=== PATIENT | female | born 1960 | race Caucasian/White ===

== ENCOUNTER 2018-01-27 11:51 | Day surgery (SDC) | END 2018-01-27 15:12 | disposition home or self-care (01) ==

== ENCOUNTER 2018-12-31 06:05 | Inpatient (IN) | payer OTHER ==
[2018-12-30 15:49] VITALS: Ht 160 cm; Wt 132.2 kg
[~2018-12-31] VITALS: Ht 160 cm; Wt 132.2 kg
[2018-12-31] VITALS (57 sets, daily range): BP systolic 80–174; BP diastolic 52–90; PULSE 60–86; RESP 12–30
[~2018-12-31 06:05] MED LIST: ASPIRIN; ATIVAN; BENTYL; COLACE; GABAPENTIN; LEVOTHYROXINE; LOMOTIL; LOSARTAN; MELOXICAM; METFORMIN; METOPROLOL; NAPROXEN; NORCO; OMEPRAZOLE; PAROXETINE; POLYMYXIN/BACITRACIN 1L IRRIG IRR ONE; ZOLPIDEM; [UNRECOGNIZED DRUG - OTHER]; miralax
[2018-12-31] MEDS ORDERED: GABA400C14 ORAL (07:29)
[2018-12-31] MEDS ORDERED: SUCR1TAB56 PO (07:29)
[2018-12-31] MEDS ORDERED: HYOS0.1297 SL (07:29)
[2018-12-31] MEDS ORDERED: TOPI25TA10 ORAL (07:29)
[2018-12-31] MEDS ORDERED: ALBU8.5H8 INH (07:29)
[2018-12-31] MEDS ORDERED: FLUT16SP17 NASAL (07:29)
[2018-12-31] MEDS ORDERED: CHOL100062 PO (07:29)
[2018-12-31] MEDS ORDERED: ONDA4TAB95 ORAL (07:29)
[2018-12-31] MEDS ORDERED: METF-849 ORAL (07:29)
[2018-12-31] MEDS ORDERED: ASPI-817 PO (07:29)
[2018-12-31] MEDS ORDERED: CLO15CR1 TOP (07:29)
[2018-12-31] MEDS ORDERED: METO100T11 ORAL (07:29)
[2018-12-31] MEDS ORDERED: OXYC-431 ORAL (07:29)
[2018-12-31] MEDS ORDERED: SOD CHLORIDE 0.9% 1,000 ML IV SCH (07:30)
--- NOTE | 2018-12-31 07:57 | PREAC ---
Date/Time of Note Date/Time of Note DATE: 12/31/18 TIME: 07:55 Anesthesia Eval and Record Evaluation Time Pre-Procedure Interview DATE: 12/31/18 TIME: 07:55 Age 58 Sex female NPO: 8 hrs Preoperative diagnosis cervical myelopathy Planned procedure C3-C7 posterior cervical decompression and fusion Past Medical History Past Medical History: Includes Cardio: HTN, Dyslipidemia Endo: Diabetes, Hypothyroid GI: Morbid obesity Surgery & Anesthesia Issues No known issue Meds Anticoagulation: No Beta Erna within 24 hr: Yes Reason Beta Erna not given: Bradycarida, Hypotension Reported Medications Cholecalciferol* (Vitamin D3*) 1,000 Unit Tablet, 5000 UNIT PO DAILY, TAB 12/31/18 Oxycodone HCl/Acetaminophen (Oxycodone-Acetaminophen 10-325) 1 Each Tablet, 1 TAB ORAL Q6 PRN for PAIN LEVEL 6-10 12/31/18 Gabapentin* (Gabapentin*) 400 Mg Capsule, 1 CAP ORAL TID 12/31/18 Metoprolol Tartrate (Metoprolol Tartrate) 100 Mg Tablet, 1 TAB ORAL BID 12/31/18 Metformin* (Glucophage*) 500 Mg Tab, 1 TAB ORAL BID 12/31/18 Ondansetron Hcl* (Ondansetron Hcl*) 4 Mg Tablet, 1 TAB ORAL Q6 PRN for VOMITTING 12/31/18 Aspirin* (Aspirin* EC) 81 Mg Tablet.dr, 81 MG PO DAILY, TAB 12/31/18 Albuterol Sulfate* (Proair HFA*) 8.5 Gm Hfa.aer.ad, 2 PUFF INH Q4H PRN for WHEEZING AND SOB, #1 INHALER 12/31/18 Fluticasone Propionate* (Fluticasone Propionate* Nasal) 50 Mcg/Lucernemines - 16 Gm Lucernemines.susp, 1 SPRAY NASAL DAILY 12/31/18 Topiramate* (Topiramate*) 25 Mg Tablet, 1 TAB ORAL DAILY 12/31/18 Clotrimazole (Clotrim) 15 Gm Cr, 1 TOP TID 12/31/18 Hyoscyamine Sulfate* (Hyoscyamine Sulfate*) 0.125 Mg Tab.subl, 0.125 MG SL Q4H PRN for INTESTINAL SPASMS/CRAMPING, TAB 12/31/18 Sucralfate* (Carafate*) 1 Gm Tab, 1 GM PO AC MEALS AND BEDTIME, TAB 12/31/18 Discontinued Reported Medications [Lomotil] No Conflict Check 07/21/18 [Cyclopenzaprine] No Conflict Check 07/21/18 [Naproxen] No Conflict Check 07/21/18 [Metformin] No Conflict Check 07/21/18 [Meloxicam] No Conflict Check 07/21/18 [Gabapentin] No Conflict Check 07/21/18 [Matthews] No Conflict Check 07/21/18 [Bentyl] No Conflict Check 07/21/18 [Levothyroxine] No Conflict Check 07/21/18 [Omeprazole] No Conflict Check 07/21/18 [Zolpidem] No Conflict Check 07/21/18 [Ativan] No Conflict Check 07/21/18 [Paroxetine] No Conflict Check 07/21/18 [Aspirin] No Conflict Check 07/21/18 [Metoprolol] No Conflict Check 07/21/18 [Losartan] No Conflict Check 07/21/18 [Colace] No Conflict Check 07/21/18 [Lomotil] No Conflict Check 07/21/18 [miralax] No Conflict Check 07/21/18 Current Medications Sodium Chloride 1,000 ml @ 0 mls/hr Q0M IV ; Start 12/31/18 at 07:30 Meds reviewed: Yes Allergies Coded Allergies: morphine (Verified Allergy, Unknown, 12/31/18) Allergies Reviewed: Yes Labs/Studies Labs Reviewed: Reviewed by anesthesiologist Result Diagram: 12/31/18 0640 Laboratory Tests 12/31/18 06:40 test: N/A Studies: ECG, CXR Pre-procedure Exam Last vitals Vital Signs Date Temp Pulse Resp B/P (MAP) Pulse Ox O2 O2 Flow FiO2 Time Delivery Rate 12/31/18 97.6 60 18 118/60 97 Room Air 06:59 (79) Airway: Adequate mouth opening, Adequate thyromental dist Mallampati: Mallampati II Teeth: Normal Lung: Normal Heart: Normal ASA Physical Status ASA physical status: 3 Emergency: None Planned Anesthetic General/MAC: ETT (glidescope), A Line Planned Pain Management Parenteral pain med Pre-operative Attestations Prior to commencing anesthesia and surgery, the patient was re-evaluated, there was verification of: *The patient's identity *The results of appropriate recent lab work and preoperative vital signs *The above evaluation not changing prior to induction *Anesthetic plan, risk benefits, alternative and complications discussed with patient/family; questions answered; patient/family understands, accepts and wishes to proceed. DAVIS PERRY MD Dec 31, 2018 07:57
[2018-12-31] MEDS ORDERED: SEVOFLURANE 15 MIN ONE (08:04)
[2018-12-31] MEDS ORDERED: LIDOCAINE 2% (SDV) 5 ML INJ ONE (08:04)
[2018-12-31] MEDS ORDERED: SUCCINYLCHOLINE CHLORIDE 100 MG/5 ML SYG IV ONE (08:04)
[2018-12-31] MEDS ORDERED: MIDAZOLAM 1 MG/ML 2 ML INJ ONE (08:04)
[2018-12-31] MEDS ORDERED: ROCURONIUM 50 MG INJ ONE ×2 (08:04→10:27)
[2018-12-31] MEDS ORDERED: PROPOFOL 20 ML ONE ×3 (08:04→10:27)
--- NOTE | 2018-12-31 08:04 | HPN ---
Date/Time of Note Date/Time of Note DATE: 12/31/18 TIME: 08:02 Interval H&P Admission Note Pt. seen H&P reviewed: No system changes Neurosurgery Preop Note Patient seen and examined Extensive d/w patient and about all available options including surgery vs no surgery. Overall risk/complications (3-5%) and benefits thoroughly discussed. All questions answered and no guarantees given . Dispo: ICU overnight, sbp 90-140, Dr. Jimenez's group for post op medical management OLIVE FARRELL MD Dec 31, 2018 08:04
[2018-12-31] MEDS ORDERED: THROMBIN 5000 UNIT (RECOTHROM) VIAL ONE (09:20)
[2018-12-31] MEDS ORDERED: ROPIVACAINE 0.5 % 30 ML VIAL ONE (09:20)
[2018-12-31] MEDS ORDERED: POLYMYXIN/BACITRACIN 1L IRRIG ONE (09:20)
[2018-12-31] MEDS ORDERED: GELATIN SIZE 100 SPONGE ONE (09:20)
[2018-12-31] MEDS ORDERED: ONDANSETRON 4 MG INJ ONE (10:03)
[2018-12-31] MEDS ORDERED: DEXAMETHASONE 4 MG/ML 5 ML INJ ONE (10:03)
[2018-12-31] MEDS ORDERED: FAMOTIDINE 20 MG INJ ONE (10:03)
[2018-12-31] MEDS ORDERED: CEFAZOLIN 1 GM INJ ONE (10:15)
[2018-12-31] MEDS ORDERED: POLYMYXIN/BACITRACIN 1L IRRIG IRR ONE (10:20)
[2018-12-31] MEDS ORDERED: DIPHENHYDRAMINE 50 MG INJ IV PRN ×2 (11:00→13:30)
[2018-12-31] MEDS ORDERED: ONDANSETRON 4 MG INJ IV PRN ×2 (11:00→13:30)
[2018-12-31] MEDS ORDERED: HYDROmorphONE 0.5 MG/0.5 ML SYG IV PRN ×3 (11:00)
[2018-12-31] MEDS ORDERED: MEPERIDINE 25 MG INJ IV PRN ×2 (11:00→13:30)
[2018-12-31] MEDS ORDERED: FENTAnyl 50 MCG/ML VIAL IV PRN ×2 (11:00→13:30)
[2018-12-31] MEDS ORDERED: hydrALAzine 20 MG INJ IV PRN ×2 (11:00→13:30)
[2018-12-31] MEDS ORDERED: EPHEDrine 25 MG/5 ML SYG IV PRN (11:00)
[2018-12-31] MEDS ORDERED: NEOSTIGMINE 3 MG/3 ML SYRINGE ONE (12:18)
[2018-12-31] MEDS ORDERED: GLYCOPYRROLATE 0.4 MG INJ ONE (12:18)
[2018-12-31] MEDS ORDERED: HYDROmorphONE 2 MG/ML SYG ONE (12:24)
--- NOTE | 2018-12-31 12:25 | OPPN ---
Date/Time of Note Date/Time of Note DATE: 12/31/18 TIME: 12:24 Operative Report Preoperative Diagnosis Cervical Myelopathy Cervical Spine Stenosis Postoperative Diagnosis Same Operation/Procedure Performed PCDF C3-7 Surgeon see signature line assistant therapy aide SHA Clark, ACNP-BC Anesthesia: general Estimated blood loss: 100 - 150 ml's Transfusion Required none Specimen Bones & Ligaments Grafts/Implants none Complications none OLIVE FARRELL MD Dec 31, 2018 12:25
[2018-12-31] MEDS ORDERED: AL HYDROX/MG HYDROX/SIMETH 30 ML CUP PO PRN (12:30)
[2018-12-31] MEDS ORDERED: NACL 0.9% 3 ML SYG IV SCH (12:30)
[2018-12-31] MEDS ORDERED: NALOXONE (0.4 MG/ML) INJ IV PRN (12:30)
[2018-12-31] MEDS ORDERED: ACETAMINOPHEN 325 MG TAB PO PRN (12:30)
[2018-12-31] MEDS ORDERED: SUGAMMADEX SODIUM 200 MG/2 ML VIAL IV ONE (12:51)
--- NOTE | 2018-12-31 13:05 | PAC ---
Date/Time of Note Date/Time of Note DATE: 12/31/18 TIME: 13:04 Post-Anesthesia Notes Post-Anesthesia Note Last documented vital signs Vital Signs Date Temp Pulse Resp B/P (MAP) Pulse Ox O2 O2 Flow FiO2 Time Delivery Rate 12/31/18 98.0 13:02 12/31/18 60 18 118/60 97 Room Air 06:59 (79) Activity: WNL Respiratory function: WNL Cardiovascular function: WNL Mental status: Baseline Pain reasonably controlled: Yes Hydration appropriate: Yes Nausea/Vomiting absent: Yes Comments BP: 138/62 HR: 70 RR: 15 T: 98 SaO2: 99% DAVIS PERRY MD Dec 31, 2018 13:05
[2018-12-31] MEDS ORDERED: PROCHLORPERAZINE 10 MG INJ IV PRN (13:30)
[2018-12-31] MEDS ORDERED: HYDROmorphONE 1 MG/5 ML IV SYRINGE IV PRN ×3 (13:30)
[2018-12-31] MEDS ORDERED: ALBUTEROL 0.083% (NEB) 2.5 MG/3 ML AMP HHN PRN (13:30)
[2018-12-31] MEDS: NS + KCL 20 MEQ 1,000 ML IV SCH ×2 (14:52→21:31)
[2018-12-31] MEDS: CEFAZOLIN 2 GM/50 ML (PMX) 50 ML IVPB SCH ×2 (14:52→21:31)
[2018-12-31] MEDS: HYDROmorphONE 1 MG/ML SYG IV PRN ×3 (16:09→23:27)
[2018-12-31] MEDS ORDERED: HYOSCYAMINE 0.125 MG SUBL TAB SL PRN (17:00)
[2018-12-31] MEDS ORDERED: GLUCOSE GEL 15 GRAM TUBE BUCCAL PRN (17:30)
[2018-12-31] MEDS ORDERED: DEXTROSE 50% 50 ML SYRINGE IV PRN ×2 (17:30)
[2018-12-31] MEDS ORDERED: GLUCAGON 1 MG INJ IM PRN (17:30)
[2018-12-31] MEDS ORDERED: GLUCOSE GEL 15 GRAM TUBE PO PRN ×2 (17:30)
[2018-12-31] MEDS: metFORMIN 500 MG TAB PO SCH (17:35)
[2018-12-31] MEDS: INSULIN ASPART [NOVOLOG] 3 ML PEN SC SCH ×2 (17:35→20:44)
[2018-12-31] MEDS: TOPIRAMATE 25 MG TAB PO SCH (18:00)
[2018-12-31] MEDS: GABAPENTIN 100 MG CAP PO SCH (18:00)
[2018-12-31] MEDS: ALBUTEROL/IPRATROPIUM (NEB) 3 ML AMP HHN SCH (19:43)
[2018-12-31] MEDS: METOPROLOL 100 MG TAB PO SCH (20:44)
[2018-12-31] MEDS: SUCRALFATE 1 GM TAB PO SCH (20:44)
--- NOTE | 2018-12-31 22:51 | HP ---
DATE OF ADMISSION: 12/31/2018 CHIEF COMPLAINT AND HISTORY OF PRESENT ILLNESS: The patient is a 58-year-old morbidly obese female w ith history of hypertension, diabetes, hypothyroidism, was seen by Dr. Haley as an outpatient for nec k pain and radiculopathy. The patient failed conservative treatment and was complaining of difficult y in ambulating, including need for a walker to assist in ambulation and also has some urinary incont inence for approximately more than 1 year. The patient also had difficulty with her balance and was frequently dropping objects. The patient was diagnosed with cervical radiculopathy and myelopathy an d was brought in to hospital today and underwent a posterior cervical laminotomy and foraminotomy, ce rvical 3 to cervical 7 posterior cervical decompression. The patient's preoperative diagnoses also i ncluded cervical spinal stenosis leading to cervical myelopathy. The patient has been admitted in [facility] for further care. The patient did have an episode of wheezing perioperatively and was given breath ing treatment. The patient remains slightly sleepy; however, easily arousable and follows commands, moves all extremities. No reported chest pain, currently breathing comfortably on supplemental oxyge n. No reported vomiting. No reported abdominal pain. REVIEW OF SYSTEMS: Rather limited because of sedation. History of fibromyalgia and irritable bowel syndrome. PAST MEDICAL HISTORY: As stated above. ALLERGIES 1. MORPHINE. 2. PAIN. PAST SURGICAL HISTORY: The patient is status post cholecystectomy, oophorectomy, right carpal tunnel release and anterior cervical spine surgery, details not available. FAMILY HISTORY: Noncontributory. PHYSICAL EXAMINATION: GENERAL: The patient is sleepy but arousable. VITAL SIGNS: Temperature 98, pulse 74, respiration 22, blood pressure 142/58, O2 saturation 97% on 8 liters mask. The patient is being weaned off. HEENT: No eye discharge or redness. Conjunctivae are normal. Nose and ears normal. NECK: The patient is status post surgery. CHEST: Diminished air entry at bases. CARDIOVASCULAR: S1, S2 normal, no murmur. ABDOMEN: Soft, nontender. EXTREMITIES: No edema. Pedal pulse palpable. SKIN: Without acute rash. NEUROLOGIC: The patient is sleepy but arousable and follows simple commands. IMPRESSION: 1. Cervical stenosis with cervical myelopathy, status post surgery, as described above. 3. Hypertension. 4. Diabetes. 5. Hypothyroidism. 6. Irritable bowel syndrome. 7. Fibromyalgia. 8. Obesity. 9. Probable history of asthma. Patient prior to admission was on metered dose inhalers. PLAN: The patient has been admitted in ICU and will be put on diabetic diet and will resume metformi n and sliding-scale insulin. We will continue metformin for diabetes in addition to sliding scale. Continue metoprolol as before for her hypertension. We will also add a breathing treatment. The pat ient remains at risk for atelectasis. Labs done this morning revealed potassium of 3.4. We will rep eat another BMP and replace potassium if needed. Her renal function this morning was normal. We neyda l do followup CBC and BMP. CBC prior to surgery revealed white count of 5.6, hemoglobin 13.6, platel et 319 ____ unremarkable. Plan of care discussed with the patient's . We will continue to fo llow her from a medical standpoint. Plan of care discussed with the patient's nurse in ICU. Dictated By: ALDAIR PIMENTEL MD AB/NTS Conf#: [id number] DID#: [id number] CC: OLIVE HALEY MD;*EndCC*
[2019-01-01] VITALS (44 sets, daily range): BP systolic 37–154; BP diastolic 30–101; PULSE 51–78; RESP 8–30
[2019-01-01] MEDS: ALBUTEROL/IPRATROPIUM (NEB) 3 ML AMP HHN SCH ×4 (02:10→20:37)
[2019-01-01] MEDS: HYDROmorphONE 1 MG/ML SYG IV PRN ×4 (03:31→18:33)
[2019-01-01] MEDS: CEFAZOLIN 2 GM/50 ML (PMX) 50 ML IVPB SCH ×3 (05:16→22:07)
[2019-01-01] MEDS: INSULIN ASPART [NOVOLOG] 3 ML PEN SC SCH ×4 (07:35→20:44)
[2019-01-01] MEDS: metFORMIN 500 MG TAB PO SCH ×2 (08:06→17:52)
[2019-01-01] MEDS: SUCRALFATE 1 GM TAB PO SCH ×5 (08:06→20:26)
[2019-01-01] MEDS: CHOLECALCIFEROL 1,000 UNIT TAB PO SCH (09:52)
[2019-01-01] MEDS: TOPIRAMATE 25 MG TAB PO SCH (09:53)
[2019-01-01] MEDS: METOPROLOL 100 MG TAB PO SCH ×2 (09:53→20:27)
[2019-01-01] MEDS: GABAPENTIN 100 MG CAP PO SCH ×3 (09:53→20:27)
[2019-01-01] MEDS: NS + KCL 20 MEQ 1,000 ML IV SCH ×2 (09:57→20:28)
[2019-01-01] MEDS: HYDROCODONE/APAP (5/325) TAB PO PRN ×2 (10:11→23:05)
--- NOTE | 2019-01-01 11:07 | PN ---
Date/Time of Note Date/Time of Note DATE: 01/01/19 TIME: 11:07 Assessment/Plan VTE [place]phylaxis [place] [facility] [place] risk: 13 SCD applied [place] [facility] [place] Yes SCD contraindicated: other Pharmacological prophylaxis: other Pharm contraindication: other Lines/Catheters [facility]from [facility] Saline Lock Urinary Cath still in place: Yes Reason Cath still needed: urinary retention Assessment/Plan Assessment/Plan 1. Cervical stenosis with cervical myelopathy, status post surgery, as described above. - ICU monitoring - per neurosurgery 3. Hypertension- stable - Continue metoprolol 4. Diabetes - glycemic control - diabetic diet 5. Hypothyroidism. 6. Irritable bowel syndrome. 7. Fibromyalgia. 8. Obesity. - weight management 9. Probable history of asthma- Patient prior to admission was on metered dose inhalers. Total critical care time spent 40 mins. Patient seen in collaboration with Dr Jimenez. STAFF Result Diagram: 01/01/19 0400 01/01/19 0400 Results 24hrs Laboratory Tests Test 12/31/18 12:57 12/31/18 17:11 12/31/18 18:00 12/31/18 19:54 Bedside Glucose 174 155 133 Sodium Level 138 Potassium Level 4.2 Chloride Level 107 Carbon Dioxide Level 20 L Anion Gap 11 Blood Urea Nitrogen 14 Creatinine 0.58 Est Glomerular > 60 Filtrat Rate mL/min Glucose Level 187 Calcium Level 8.7 Test 01/01/19 04:00 01/01/19 08:05 Hemoglobin 13.4 Hematocrit 40.0 Sodium Level 139 Potassium Level 3.8 Chloride Level 106 Carbon Dioxide Level 22 Anion Gap 11 Blood Urea Nitrogen 11 Creatinine 0.55 Est Glomerular > 60 Filtrat Rate mL/min Glucose Level 111 # Calcium Level 8.9 Bedside Glucose 105 Subjective 24 Hr Interval Summary Free Text/Dictation c/ o neck pain denies any BUE/BLE weakness/numbness no events overnight Constitutional: requiring O2 Eyes: no complaints ENT: no complaints Respiratory: no complaints Cardiovascular: no complaints Gastrointestinal: no complaints Genitourinary: no complaints Musculoskeletal: neck pain Skin: no complaints Neurologic: no complaints Exam/Review of Systems Exam Vitals Vital Signs Date Temp Pulse Resp B/P (MAP) Pulse Ox O2 O2 Flow FiO2 Time Delivery Rate 01/01/19 78 17 37/30 (32) 97 10:01 01/01/19 Nasal 10:00 Cannula 01/01/19 2.0 08:39 01/01/19 97.9 08:00 12/31/18 50 16:15 Intake and Output 12/31/18 12/31/18 01/01/19 1515:00 23:00 07:00 IntakeIntake Total 2000 ml 800 ml 820 ml OutputOutput Total 350 ml 1665 ml 1110 ml BalanceBalance 1650 ml -865 ml -290 ml Constitutional: alert, well developed, obese Psych: nl mood/affect Head: normocephalic Eyes: nl lids, nl sclera, PERRL ENMT: nl external ears & nose Neck: non-tender Respiratory: clear to auscultation Cardiovascular: nl pulses, other (s1s2) Gastrointestinal: soft, non-tender Musculoskeletal: nl extremities to inspection Extremities: normal pulses Neurological: nl speech, other (alert/responsive) Skin: nl turgor Lymph: nontender Results Results 24hrs Laboratory Tests Test 12/31/18 12:57 12/31/18 17:11 12/31/18 18:00 12/31/18 19:54 Bedside Glucose 174 155 133 Sodium Level 138 Potassium Level 4.2 Chloride Level 107 Carbon Dioxide Level 20 L Anion Gap 11 Blood Urea Nitrogen 14 Creatinine 0.58 Est Glomerular > 60 Filtrat Rate mL/min Glucose Level 187 Calcium Level 8.7 Test 01/01/19 04:00 01/01/19 08:05 Hemoglobin 13.4 Hematocrit 40.0 Sodium Level 139 Potassium Level 3.8 Chloride Level 106 Carbon Dioxide Level 22 Anion Gap 11 Blood Urea Nitrogen 11 Creatinine 0.55 Est Glomerular > 60 Filtrat Rate mL/min Glucose Level 111 # Calcium Level 8.9 Bedside Glucose 105 Medications Medication Current Medications Sodium Chloride 1,000 ml @ 0 mls/hr Q0M IV ; Start 12/31/18 at 07:30 Acetaminophen/ Hydrocodone Bitart ([place] (5/325)) 1 tab Q4H PRN PO .PAIN 1-5 Last administered on 01/01/19at 10:11; Admin Dose 1 TAB; Start 12/31/18 at 12:30 Al Hydrox/Mg Hydrox/Simethicone (Mag-Al Plus) 15 ml Q4H PRN PO .CONSTIPATION; Start 12/31/18 at 12:30 Acetaminophen (Tylenol Tab) 650 mg Q4H PRN PO TEMP GREATER THAN 101F OR VASQUEZ; Start 12/31/18 at 12:30 IV Flush (NS 3 ml) 3 ml PER PROTOCOL IV ; Start 12/31/18 at 12:30 Naloxone HCl (Narcan) 0.2 mg Q2M PRN IV RR 8 BREATHS/MIN OR LESS; Start 12/31/18 at 12:30 Potassium Chloride/Sodium Chloride 1,000 ml @ 100 mls/hr Q10H IV Last administered on 01/01/19 09:57; Admin Dose 100 MLS/HR; Start 12/31/18 at 12:30 Hydromorphone HCl (Dilaudid) 1 mg Q3H PRN IV SEVERE PAIN LEVEL 7-10 Last administered on 01/01/19 07:49; Admin Dose 1 MG; Start 12/31/18 at 12:30 Cefazolin Sodium/ Dextrose 50 ml @ 100 mls/hr Q8 IVPB Last administered on 01/01/19 05:16; Admin Dose 100 MLS/HR; Start 12/31/18 at 14:00; Stop 01/02/19 at 14:00 Albuterol/ Ipratropium (Duoneb) 3 ml Q6H RESP THERAPY HHN Last administered on 01/01/19 08:36; Admin Dose 3 ML; Start 12/31/18 at 20:00; Stop 01/03/19 at 19:59 Cholecalciferol (Vitamin D) 5,000 unit DAILY PO Last administered on 01/01/19 09:52; Admin Dose 5,000 UNIT; Start 01/01/19 at 09:00 Gabapentin (Neurontin) 200 mg TID PO Last administered on 01/01/19 09:53; Admin Dose 200 MG; Start 12/31/18 at 18:00 Hyoscyamine (Levsin (Sl)) 0.125 mg Q4H PRN SL INTESTINAL SPASMS/CRAMPING; Start 12/31/18 at 17:00 Metformin HCl (Glucophage) 500 mg BID WITH MEALS PO Last administered on 01/01/19 08:06; Admin Dose 500 MG; Start 12/31/18 at 17:35 Metoprolol Tartrate (Lopressor) 100 mg BID PO Last administered on 01/01/19 09:53; Admin Dose 100 MG; Start 12/31/18 at 21:00 Sucralfate (Carafate) 1 gm AC MEALS AND BEDTIME PO Last administered on 01/01/19at 08:06; Admin Dose 1 GM; Start 12/31/18 at 21:00 Topiramate (Topamax) 25 mg DAILY PO Last administered on 01/01/19at 09:53; Admin Dose 25 MG; Start 12/31/18 at 18:00 Insulin Aspart (Novolog Insulin Pen) NOVOLOG *MODERATE* ALGORITHM WITH MEALS BEDTIME SC ; Start 12/31/18 at 17:35 Miscellaneous Information 1 ea NOTE XX ; Start 12/31/18 at 17:30 Glucose (Glutose) 15 gm Q15M PRN PO DECREASED GLUCOSE; Start 12/31/18 at 17:30 Glucose (Glutose) 22.5 gm Q15M PRN PO DECREASED GLUCOSE; Start 12/31/18 at 17:30 Dextrose (D50w Syringe) 25 ml Q15M PRN IV DECREASED GLUCOSE; Start 12/31/18 at 17:30 Dextrose (D50w Syringe) 50 ml Q15M PRN IV DECREASED GLUCOSE; Start 12/31/18 at 17:30 Glucagon (Glucagen) 1 mg Q15M PRN IM DECREASED GLUCOSE; Start 12/31/18 at 17:30 Glucose (Glutose) 15 gm Q15M PRN BUCCAL DECREASED GLUCOSE; Start 12/31/18 at 1 7:30 NELDA LOWE Jan 01, 2019 11:07
[2019-01-02] VITALS (7 sets, daily range): BP systolic 120–155; BP diastolic 57–77; PULSE 53–62; RESP 18–20
[2019-01-02] MEDS: ALBUTEROL/IPRATROPIUM (NEB) 3 ML AMP HHN SCH ×4 (01:30→20:06)
[2019-01-02] MEDS: CEFAZOLIN 2 GM/50 ML (PMX) 50 ML IVPB SCH ×2 (06:03→14:18)
[2019-01-02] MEDS: NS + KCL 20 MEQ 1,000 ML IV SCH ×3 (06:04→18:38)
[2019-01-02] MEDS: SUCRALFATE 1 GM TAB PO SCH ×4 (07:20→20:31)
[2019-01-02] MEDS: metFORMIN 500 MG TAB PO SCH ×2 (07:37→17:22)
[2019-01-02] MEDS: INSULIN ASPART [NOVOLOG] 3 ML PEN SC SCH ×4 (07:41→20:32)
[2019-01-02] MEDS: HYDROmorphONE 1 MG/ML SYG IV PRN ×3 (07:46→18:38)
[2019-01-02] MEDS: TOPIRAMATE 25 MG TAB PO SCH (08:42)
[2019-01-02] MEDS: METOPROLOL 100 MG TAB PO SCH ×2 (08:42→20:31)
[2019-01-02] MEDS: CHOLECALCIFEROL 1,000 UNIT TAB PO SCH (08:43)
[2019-01-02] MEDS: GABAPENTIN 100 MG CAP PO SCH ×3 (08:43→20:32)
--- NOTE | 2019-01-02 11:20 | PN ---
Date/Time of Note Date/Time of Note DATE: 01/02/19 TIME: 11:17 Assessment/Plan VTE [place]axis [place] [facility] [place]: 11 [place] [facility] [place] Yes SCD contraindicated: other Pharmacological prophylaxis: other Pharm contraindication: other Lines/Catheters [facility] C[facility] Type [facility] Saline Lock Urinary Cath still in place: Yes Reason Cath still needed: urinary retention Assessment/Plan Assessment/Plan 1. Cervical stenosis with cervical myelopathy, status post surgery, as described above. - per neurosurgery 3. Hypertension- stable - Continue metoprolol 4. Diabetes - glycemic control - diabetic diet 5. Hypothyroidism. 6. Irritable bowel syndrome. 7. Fibromyalgia. 8. Obesity. - weight management 9. Probable history of asthma- Patient prior to admission was on metered dose inhalers. Total critical care time spent 40 mins. Patient seen in collaboration with Dr Jimenez. STAFF Result Diagram: 01/01/19 0400 01/01/19 0400 Results 24hrs Laboratory Tests Test 01/01/19 12:01 01/01/19 17:55 01/01/19 20:29 01/02/19 07:34 Bedside Glucose 129 145 128 118 Subjective 24 Hr Interval Summary Free Text/Dictation c/o neck pain; up in chair; gets PT cervical collar noted no events reported last night Eyes: no complaints ENT: no complaints Respiratory: no complaints Cardiovascular: no complaints Gastrointestinal: no complaints Genitourinary: no complaints Musculoskeletal: neck pain Skin: no complaints Neurologic: no complaints Endocrine: no complaints Lymphatic: no complaints Psychological: nl mood/affect Immunologic: no complaints Exam/Review of Systems Exam Vitals Vital Signs Date Temp Pulse Resp B/P (MAP) Pulse Ox O2 O2 Flow FiO2 Time Delivery Rate 01/02/19 68 18 96 Nasal 2.0 09:34 Cannula 01/02/19 98.8 138/67 07:41 (90) 01/02/19 28 01:40 Intake and Output 01/01/19 01/01/19 01/02/19 1414:59 22:59 06:59 IntakeIntake Total 1200 ml 740 ml 150 ml OutputOutput Total 940 ml 240 ml 4200 ml BalanceBalance 260 ml 500 ml -4050 ml Results Results 24hrs Laboratory Tests Test 01/01/19 12:01 01/01/19 17:55 01/01/19 20:29 01/02/19 07:34 Bedside Glucose 129 145 128 118 Medications Medication Current Medications Acetaminophen/ Hydrocodone Bitart ([place] (5/325)) 1 tab Q4H PRN PO .PAIN 1-5 Last administered on 01/01/19at 23:05; Admin Dose 1 TAB; Start 12/31/18 at 12:30 Al Hydrox/Mg Hydrox/Simethicone (Mag-Al Plus) 15 ml Q4H PRN PO .CONSTIPATION; Start 12/31/18 at 12:30 Acetaminophen (Tylenol Tab) 650 mg Q4H PRN PO TEMP GREATER THAN 101F OR VASQUEZ; Start 12/31/18 at 12:30 IV Flush (NS 3 ml) 3 ml PER PROTOCOL IV ; Start 12/31/18 at 12:30 Naloxone HCl (Narcan) 0.2 mg Q2M PRN IV RR 8 BREATHS/MIN OR LESS; Start 12/31/18 at 12:30 Potassium Chloride/Sodium Chloride 1,000 ml @ 100 mls/hr Q10H IV Last administered on 01/02/19 06:04; Admin Dose 100 MLS/HR; Start 12/31/18 at 12:30 Hydromorphone HCl (Dilaudid) 1 mg Q3H PRN IV SEVERE PAIN LEVEL 7-10 Last admini stered on 01/02/19 07:46; Admin Dose 1 MG; Start 12/31/18 at 12:30 Cefazolin Sodium/ Dextrose 50 ml @ 100 mls/hr Q8 IVPB Last administered on 01/02/19 06:03; Admin Dose 100 MLS/HR; Start 12/31/18 at 14:00; Stop 01/02/19 at 14:00 Albuterol/ Ipratropium (Duoneb) 3 ml Q6H RESP THERAPY HHN Last administered on 01/02/19 09:33; Admin Dose 3 ML; Start 12/31/18 at 20:00; Stop 01/03/19 at 19:59 Cholecalciferol (Vitamin D) 5,000 unit DAILY PO Last administered on 01/02/19 08:43; Admin Dose 5,000 UNIT; Start 01/01/19 at 09:00 Gabapentin (Neurontin) 200 mg TID PO Last administered on 7/21/19at 08:43; Admin Dose 200 MG; Start 12/31/18 at 18:00 Hyoscyamine (Levsin (Sl)) 0.125 mg Q4H PRN SL INTESTINAL SPASMS/CRAMPING; Start 12/31/18 at 17:00 Metformin HCl (Glucophage) 500 mg BID WITH MEALS PO Last administered on 01/02/19at 07:37; Admin Dose 500 MG; Start 12/31/18 at 17:35 Metoprolol Tartrate (Lopressor) 100 mg BID PO Last administered on 01/02/19at 08:42; Admin Dose 100 MG; Start 12/31/18 at 21:00 Sucralfate (Carafate) 1 gm AC MEALS AND BEDTIME PO Last administered on 01/02/19 07:20; Admin Dose 1 GM; Start 12/31/18 at 21:00 Topiramate (Topamax) 25 mg DAILY PO Last administered on 01/02/19at 08:42; Admin Dose 25 MG; Start 12/31/18 at 18:00 Insulin Aspart (Novolog Insulin Pen) NOVOLOG *MODERATE* ALGORITHM WITH MEALS BEDTIME SC ; Start 12/31/18 at 17:35 Miscellaneous Information 1 ea NOTE XX ; Start 12/31/18 at 17:30 Glucose (Glutose) 15 gm Q15M PRN PO DECREASED GLUCOSE; Start 12/31/18 at 17:30 Glucose (Glutose) 22.5 gm Q15M PRN PO DECREASED GLUCOSE; Start 12/31/18 at 17:3 0 Dextrose (D50w Syringe) 25 ml Q15M PRN IV DECREASED GLUCOSE; Start 12/31/18 at 17:30 Dextrose (D50w Syringe) 50 ml Q15M PRN IV DECREASED GLUCOSE; Start 12/31/18 at 17:30 Glucagon (Glucagen) 1 mg Q15M PRN IM DECREASED GLUCOSE; Start 12/31/18 at 17:30 Glucose (Glutose) 15 gm Q15M PRN BUCCAL DECREASED GLUCOSE; Start 12/31/18 at 17:30 NELDA LOWE Jan 02, 2019 11:20
[2019-01-02] MEDS: HYDROCODONE/APAP (5/325) TAB PO PRN (22:56)
[2019-01-03] MEDS: HYDROmorphONE 1 MG/ML SYG IV PRN ×4 (01:49→19:21)
[2019-01-03] MEDS: ALBUTEROL/IPRATROPIUM (NEB) 3 ML AMP HHN SCH ×3 (02:00→14:00)
[2019-01-03 03:55] VITALS: BP 127/64; PULSE 55; RESP 20
[2019-01-03] MEDS: SUCRALFATE 1 GM TAB PO SCH ×4 (06:25→23:03)
[2019-01-03] MEDS: NS + KCL 20 MEQ 1,000 ML IV SCH (06:27)
[2019-01-03 07:20] VITALS: BP 136/61; PULSE 58; RESP 18
[2019-01-03] MEDS: metFORMIN 500 MG TAB PO SCH ×2 (07:38→17:06)
[2019-01-03] MEDS: INSULIN ASPART [NOVOLOG] 3 ML PEN SC SCH ×4 (07:43→23:06)
[2019-01-03 08:03] VITALS: PULSE 61
[2019-01-03] MEDS: CHOLECALCIFEROL 1,000 UNIT TAB PO SCH (08:04)
[2019-01-03] MEDS: TOPIRAMATE 25 MG TAB PO SCH (08:04)
[2019-01-03] MEDS: GABAPENTIN 100 MG CAP PO SCH ×3 (08:04→23:03)
[2019-01-03] MEDS: METOPROLOL 100 MG TAB PO SCH ×2 (08:05→23:04)
[2019-01-03 11:06] VITALS: BP 130/63; PULSE 54; RESP 19
--- NOTE | 2019-01-03 14:07 | PN ---
Date/Time of Note Date/Time of Note DATE: 01/03/19 TIME: 14:04 Assessment/Plan VTE Prophylaxis Risk score (from Nsg)>0 risk: 11 SCD applied (from Ns): Yes SCD contraindicated: low risk/ambulating Pharmacological prophylaxis: NA/contraindicated Pharm contraindication: low risk/ambulating Lines/Catheters IV Catheter Type (from Nrsg): Saline Lock [place] line still needed: No Urinary Cath still in place: No Assessment/Plan Assessment/Plan Impression s/p PCDF C3-7 doing well surgical site: CDI Plan cont supportive care pt/ot collar x 6 weeks when oob IS x 10 dc laurie drain rehab eval, okay to proceed dc home with HH or Rehab from NS point of view family would prefer rehab placement Result Diagram: 01/01/19 0400 01/01/19 0400 Results 24hrs Laboratory Tests Test 01/02/19 17:21 01/02/19 20:28 01/03/19 07:31 01/03/19 12:07 Bedside Glucose 108 121 149 125 Subjective 24 Hr Interval Summary Free Text/Dictation Neurosurgery Update S: s/p PCDF C3-7 increasing strength bilat UE/LE surgical site:CDI LAURIE drain with scant output Exam/Review of Systems Exam Vitals Vital Signs Date Temp Pulse Resp B/P (MAP) Pulse Ox O2 O2 Flow FiO2 Time Delivery Rate 01/03/19 98.7 54 19 130/63 94 11:06 (85) 01/03/19 Nasal 2.0 08:00 Cannula 01/02/19 28 01:40 Intake and Output 01/02/19 01/02/19 01/03/19 1515:00 23:00 07:00 IntakeIntake Total 1150 ml 1400 ml 225 ml OutputOutput Total 2250 ml 2800 ml BalanceBalance 1150 ml -850 ml -2575 ml Neurological: other (MS: AAOX4 CN: PERRL M: FC x 4 , no focal def (increasing strength) Surgical site:CDI ) Results Results 24hrs Laboratory Tests Test 01/02/19 17:21 01/02/19 20:28 01/03/19 07:31 01/03/19 12:07 Bedside Glucose 108 121 149 125 Medications Medication Current Medications Acetaminophen/ Hydrocodone Bitart ([place] (5/325)) 1 tab Q4H PRN PO .PAIN 1-5 Last administered on 01/02/19 22:56; Admin Dose 1 TAB; Start 12/31/18 at 12:30 Al Hydrox/Mg Hydrox/Simethicone (Mag-Al Plus) 15 ml Q4H PRN PO .CONSTIPATION; Start 12/31/18 at 12:30 Acetaminophen (Tylenol Tab) 650 mg Q4H PRN PO TEMP GREATER THAN 101F OR VASQUEZ; Start 12/31/18 at 12:30 IV Flush (NS 3 ml) 3 ml PER PROTOCOL IV ; Start 12/31/18 at 12:30 Naloxone HCl (Narcan) 0.2 mg Q2M PRN IV RR 8 BREATHS/MIN OR LESS; Start 12/31/18 at 12:30 Hydromorphone HCl (Dilaudid) 1 mg Q3H PRN IV SEVERE PAIN LEVEL 7-10 Last administered on 01/03/19 09:16; Admin Dose 1 MG; Start 12/31/18 at 12:30 Albuterol/ Ipratropium (Duoneb) 3 ml Q6H RESP THERAPY HHN Last administered on 01/03/19 07:49; Admin Dose 3 ML; Start 12/31/18 at 20:00; Stop 01/03/19 at 19:59 Cholecalciferol (Vitamin D) 5,000 unit DAILY PO Last administered on 01/03/19 08:04; Admin Dose 5,000 UNIT; Start 01/01/19 at 09:00 Gabapentin (Neurontin) 200 mg TID PO Last administered on 01/03/19 12:07; Admin Dose 200 MG; Start 12/31/18 at 18:00 Hyoscyamine (Levsin (Sl)) 0.125 mg Q4H PRN SL INTESTINAL SPASMS/CRAMPING; Start 12/31/18 at 17:00 Metformin HCl (Glucophage) 500 mg BID WITH MEALS PO Last administered on 01/03/19 07:38; Admin Dose 500 MG; Start 12/31/18 at 17:35 Metoprolol Tartrate (Lopressor) 100 mg BID PO Last administered on 01/03/19 08:05; Admin Dose 100 MG; Start 12/31/18 at 21:00 Sucralfate (Carafate) 1 gm AC MEALS AND BEDTIME PO Last administered on 7/22/19at 12:07; Admin Dose 1 GM; Start 12/31/18 at 21:00 Topiramate (Topamax) 25 mg DAILY PO Last administered on 01/03/19at 08:04; Admin Dose 25 MG; Start 12/31/18 at 18:00 Insulin Aspart (Novolog Insulin Pen) NOVOLOG *MODERATE* ALGORITHM WITH MEALS BEDTIME SC Last administered on 01/03/19 07:43; Admin Dose 2 UNIT; Start 12/31/18 at 17:35 Miscellaneous Information 1 ea NOTE XX ; Start 12/31/18 at 17:30 Glucose (Glutose) 15 gm Q15M PRN PO DECREASED GLUCOSE; Start 12/31/18 at 17:30 Glucose (Glutose) 22.5 gm Q15M PRN PO DECREASED GLUCOSE; Start 12/31/18 at 17:30 Dextrose (D50w Syringe) 25 ml Q15M PRN IV DECREASED GLUCOSE; Start 12/31/18 at 17:30 Dextrose (D50w Syringe) 50 ml Q15M PRN IV DECREASED GLUCOSE; Start 12/31/18 at 17:30 Glucagon (Glucagen) 1 mg Q15M PRN IM DECREASED GLUCOSE; Start 12/31/18 at 17:30 Glucose (Glutose) 15 gm Q15M PRN BUCCAL DECREASED GLUCOSE; Start 12/31/18 at 17:30 OLIVE FARRELL MD Jan 03, 2019 14:07
[2019-01-03 15:29] VITALS: BP 125/59; PULSE 58; RESP 17
--- NOTE | 2019-01-03 16:56 | PN ---
Date/Time of Note Date/Time of Note DATE: 01/03/19 TIME: 16:56 Assessment/Plan VTE Prophylaxis Risk score (from Ns)>0 risk: 11 SCD applied (from Ns): Yes Pharmacological prophylaxis: NA/contraindicated Pharm contraindication: surgical contra Lines/Catheters [facility]from [facility] Saline Lock Urinary Cath still in place: No Assessment/Plan Hospital Course Patient remains hemodynamically stable, afebrile, pain is adequately controlled, slow progress with physical therapy, acute rehab eval. Assessment/Plan - Cervical stenosis with cervical myelopathy, s/p PCDF C3-7 on 12/31/[address] Haley. Continue cervical collar x6 weeks, physical therapy, continue [place] and Dilaudid as needed for pain. - Hypertension. - Diabetes. - Hypothyroidism. - Irritable bowel syndrome. - Fibromyalgia. - Morbid obesity with BMI 51.6 - Probable history of asthma. Patient prior to admission was on metered dose inhalers. Further recommendations based on clinical course. Plan of care discussed with Dr. Jimenez. Result Diagram: 01/01/19 0400 01/01/19 0400 Results 24hrs Laboratory Tests Test 01/02/19 17:21 01/02/19 20:28 01/03/19 07:31 01/03/19 12:07 Bedside Glucose 108 121 149 125 Exam/Review of Systems Exam Vitals Vital Signs Date Temp Pulse Resp B/P (MAP) Pulse Ox O2 O2 Flow FiO2 Time Delivery Rate 01/03/19 97.7 58 17 125/59 91 15:29 (81) 01/03/19 Nasal 2.0 08:00 Cannula 01/02/19 28 01:40 Intake and Output 01/02/19 01/02/19 01/03/19 1515:00 23:00 07:00 IntakeIntake Total 1150 ml 1400 ml 225 ml OutputOutput Total 2250 ml 2800 ml BalanceBalance 1150 ml -850 ml -2575 ml Constitutional: alert, oriented Head: normocephalic Neck: other (Status post surgery, cervical collar) Respiratory: clear to auscultation Cardiovascular: nl pulses Gastrointestinal: soft, non-tender Musculoskeletal: nl extremities to inspection Extremities: normal pulses Neurological: nl mental status Results Results 24hrs Laboratory Tests Test 01/02/19 17:21 01/02/19 20:28 01/03/19 07:31 01/03/19 12:07 Bedside Glucose 108 121 149 125 Medications Medication Current Medications Acetaminophen/ Hydrocodone Bitart ([place] (5/325)) 1 tab Q4H PRN PO .PAIN 1-5 Last administered on 01/02/19at 22:56; Admin Dose 1 TAB; Start 12/31/18 at 12:30 Al Hydrox/Mg Hydrox/Simethicone (Mag-Al Plus) 15 ml Q4H PRN PO .CONSTIPATION; Start 12/31/18 at 12:30 Acetaminophen (Tylenol Tab) 650 mg Q4H PRN PO TEMP GREATER THAN 101F OR VASQUEZ; Start 12/31/18 at 12:30 IV Flush (NS 3 ml) 3 ml PER PROTOCOL IV ; Start 12/31/18 at 12:30 Naloxone HCl (Narcan) 0.2 mg Q2M PRN IV RR 8 BREATHS/MIN OR LESS; Start 12/31/18 at 12:30 Hydromorphone HCl (Dilaudid) 1 mg Q3H PRN IV SEVERE PAIN LEVEL 7-10 Last administered on 01/03/19 15:17; Admin Dose 1 MG; Start 12/31/18 at 12:30 Albuterol/ Ipratropium (Duoneb) 3 ml Q6H RESP THERAPY HHN Last administered on 01/03/19 07:49; Admin Dose 3 ML; Start 12/31/18 at 20:00; Stop 01/03/19 at 19:59 Cholecalciferol (Vitamin D) 5,000 unit DAILY PO Last administered on 01/03/19 08:04; Admin Dose 5,000 UNIT; Start 01/01/19 at 09:00 Gabapentin (Neurontin) 200 mg TID PO Last administered on 01/03/19 12:07; Admin Dose 200 MG; Start 12/31/18 at 18:00 Hyoscyamine (Levsin (Sl)) 0.125 mg Q4H PRN SL INTESTINAL SPASMS/CRAMPING; Start 12/31/18 at 17:00 Metformin HCl (Glucophage) 500 mg BID WITH MEALS PO Last administered on 01/03/19 07:38; Admin Dose 500 MG; Start 12/31/18 at 17:35 Metoprolol Tartrate (Lopressor) 100 mg BID PO Last administered on 01/03/19 08:05; Admin Dose 100 MG; Start 12/31/18 at 21:00 Sucralfate (Carafate) 1 gm AC MEALS AND BEDTIME PO Last administered on 01/03/19at 12:07; Admin Dose 1 GM; Start 12/31/18 at 21:00 Topiramate (Topamax) 25 mg DAILY PO Last administered on 01/03/19 08:04; Admin Dose 25 MG; Start 12/31/18 at 18:00 Insulin Aspart (Novolog Insulin Pen) NOVOLOG *MODERATE* ALGORITHM WITH MEALS BEDTIME SC Last administered on 01/03/19 07:43; Admin Dose 2 UNIT; Start 12/31/18 at 17:35 Miscellaneous Information 1 ea NOTE XX ; Start 12/31/18 at 17:30 Glucose (Glutose) 15 gm Q15M PRN PO DECREASED GLUCOSE; Start 12/31/18 at 17:30 Glucose (Glutose) 22.5 gm Q15M PRN PO DECREASED GLUCOSE; Start 12/31/18 at 17:30 Dextrose (D50w Syringe) 25 ml Q15M PRN IV DECREASED GLUCOSE; Start 12/31/18 at 17:30 Dextrose (D50w Syringe) 50 ml Q15M PRN IV DECREASED GLUCOSE; Start 12/31/18 at 17:30 Glucagon (Glucagen) 1 mg Q15M PRN IM DECREASED GLUCOSE; Start 12/31/18 at 17:30 Glucose (Glutose) 15 gm Q15M PRN BUCCAL DECREASED GLUCOSE; Start 12/31/18 at 17:30 DORITA HEART Jan 03, 2019 16:56
[2019-01-03 19:58] VITALS: BP 158/76; PULSE 60; RESP 20
[2019-01-03] MEDS: HYDROCODONE/APAP (5/325) TAB PO PRN (23:03)
[2019-01-04 00:09] VITALS: BP 153/74; PULSE 51; RESP 20
[2019-01-04] MEDS: HYDROmorphONE 1 MG/ML SYG IV PRN ×5 (02:43→21:33)
[2019-01-04 04:16] VITALS: BP 122/68; PULSE 62; RESP 18
[2019-01-04] MEDS: SUCRALFATE 1 GM TAB PO SCH ×4 (06:55→20:08)
[2019-01-04] MEDS: HYDROCODONE/APAP (5/325) TAB PO PRN (07:00)
[2019-01-04 07:35] VITALS: BP 130/96; PULSE 57; RESP 19
[2019-01-04] MEDS: INSULIN ASPART [NOVOLOG] 3 ML PEN SC SCH ×4 (08:00→20:11)
[2019-01-04] MEDS: metFORMIN 500 MG TAB PO SCH ×2 (08:22→17:25)
[2019-01-04] MEDS: GABAPENTIN 100 MG CAP PO SCH ×3 (08:22→20:08)
[2019-01-04] MEDS: TOPIRAMATE 25 MG TAB PO SCH (08:22)
[2019-01-04] MEDS: CHOLECALCIFEROL 1,000 UNIT TAB PO SCH (08:22)
[2019-01-04] MEDS: METOPROLOL 100 MG TAB PO SCH ×2 (08:25→20:08)
[2019-01-04 11:55] VITALS: BP 139/67; PULSE 58; RESP 19
[2019-01-04 15:21] VITALS: BP 124/58; PULSE 65; RESP 19
[2019-01-04 19:13] VITALS: BP 141/65; PULSE 74; RESP 19
--- NOTE | 2019-01-04 19:25 | PN ---
Date/Time of Note Date/Time of Note DATE: 01/04/19 TIME: 19:22 Assessment/Plan VTE Prophylaxis Risk score (from Ns)>0 risk: 13 SCD applied (from Ns): Yes Pharmacological prophylaxis: NA/contraindicated Pharm contraindication: surgical contra Lines/Catheters [facility] Saline Lock Urinary Cath still in place: No Assessment/Plan Hospital Course Patient remains hemodynamically stable, afebrile. Patient had a slow progress with physical therapy due to pain, continue physical therapy with LSO brace, patient benefit for ARU. Assessment/Plan - Cervical stenosis with cervical myelopathy, s/p PCDF C3-7 on 12/31/[address] Haley. Continue cervical collar x6 weeks, physical therapy, continue [place] and Dilaudid as needed for pain. - Hypertension. - Diabetes. - Hypothyroidism. - Irritable bowel syndrome. - Fibromyalgia. - Morbid obesity with BMI 51.6 - Probable history of asthma. Patient prior to admission was on metered dose inhalers. Further recommendations based on clinical course. Plan of care discussed with Dr. Jimenez. Result Diagram: 01/04/19 0517 01/04/19 0517 Results 24hrs Laboratory Tests Test 01/03/19 23:06 01/04/19 05:17 01/04/19 08:16 01/04/19 12:09 Bedside Glucose 164 118 120 White Blood Count 9.9 Red Blood Count 4.17 L Hemoglobin 12.8 Hematocrit 39.1 Mean Corpuscular 93.8 Volume Mean Corpuscular 30.7 Hemoglobin Mean Corpuscular 32.7 Hemoglobin Concent Red Cell 14.1 Distribution Width Platelet Count 304 Mean Platelet Volume 9.7 Immature 0.300 Granulocytes % Neutrophils % 62.6 Lymphocytes % 26.0 Monocytes % 7.2 Eosinophils % 3.2 Basophils % 0.7 Nucleated Red Blood 0.0 Cells % Immature 0.030 Granulocytes # Neutrophils # 6.2 Lymphocytes # 2.6 Monocytes # 0.7 Eosinophils # 0.3 Basophils # 0.1 Nucleated Red Blood 0.0 Cells # Sodium Level 138 Potassium Level 3.5 Chloride Level 105 Carbon Dioxide Level 26 Anion Gap 7 Blood Urea Nitrogen 7 Creatinine 0.52 Est Glomerular > 60 Filtrat Rate mL/min Glucose Level 131 Calcium Level 9.0 Test 01/04/19 17:24 Bedside Glucose 159 Exam/Review of Systems Exam Vitals Vital Signs Date Temp Pulse Resp B/P (MAP) Pulse Ox O2 O2 Flow FiO2 Time Delivery Rate 01/04/19 98.1 74 19 141/65 90 19:13 (90) 01/04/19 Nasal 2.0 08:00 Cannula 01/02/19 28 01:40 Intake and Output 01/03/19 01/03/19 01/04/19 1515:00 23:00 07:00 IntakeIntake Total 360 ml OutputOutput Total 1 ml 1700 ml BalanceBalance 359 ml -1700 ml Exam Constitutional: alert, oriented Neck: other (Status post surgery, cervical collar) Respiratory: clear to auscultation Cardiovascular: nl pulses Gastrointestinal: soft, non-tender Musculoskeletal: nl extremities to inspection Extremities: normal pulses Neurological: nl mental status Results Results 24hrs Laboratory Tests Test 01/03/19 23:06 01/04/19 05:17 01/04/19 08:16 01/04/19 12:09 Bedside Glucose 164 118 120 White Blood Count 9.9 Red Blood Count 4.17 L Hemoglobin 12.8 Hematocrit 39.1 Mean Corpuscular 93.8 Volume Mean Corpuscular 30.7 Hemoglobin Mean Corpuscular 32.7 Hemoglobin Concent Red Cell 14.1 Distribution Width Platelet Count 304 Mean Platelet Volume 9.7 Immature 0.300 Granulocytes % Neutrophils % 62.6 Lymphocytes % 26.0 Monocytes % 7.2 Eosinophils % 3.2 Basophils % 0.7 Nucleated Red Blood 0.0 Cells % Immature 0.030 Granulocytes # Neutrophils # 6.2 Lymphocytes # 2.6 Monocytes # 0.7 Eosinophils # 0.3 Basophils # 0.1 Nucleated Red Blood 0.0 Cells # Sodium Level 138 Potassium Level 3.5 Chloride Level 105 Carbon Dioxide Level 26 Anion Gap 7 Blood Urea Nitrogen 7 Creatinine 0.52 Est Glomerular > 60 Filtrat Rate mL/min Glucose Level 131 Calcium Level 9.0 Test 01/04/19 17:24 Bedside Glucose 159 Medications Medication Current Medications Acetaminophen/ Hydrocodone Bitart ([place] (5/325)) 1 tab Q4H PRN PO .PAIN 1-5 Last administered on 01/04/19at 07:00; Admin Dose 1 TAB; Start 12/31/18 at 12:30 Al Hydrox/Mg Hydrox/Simethicone (Mag-Al Plus) 15 ml Q4H PRN PO .CONSTIPATION; Start 12/31/18 at 12:30 Acetaminophen (Tylenol Tab) 650 mg Q4H PRN PO TEMP GREATER THAN 101F OR VASQUEZ; Start 12/31/18 at 12:30 IV Flush (NS 3 ml) 3 ml PER PROTOCOL IV ; Start 12/31/18 at 12:30 Naloxone HCl (Narcan) 0.2 mg Q2M PRN IV RR 8 BREATHS/MIN OR LESS; Start 12/31/18 at 12:30 Hydromorphone HCl (Dilaudid) 1 mg Q3H PRN IV SEVERE PAIN LEVEL 7-10 Last admi nistered on 01/04/19 18:57; Admin Dose 1 MG; Start 12/31/18 at 12:30 Cholecalciferol (Vitamin D) 5,000 unit DAILY PO Last administered on 01/04/19 08:22; Admin Dose 5,000 UNIT; Start 01/01/19 at 09:00 Gabapentin (Neurontin) 200 mg TID PO Last administered on 01/04/19 12:10; Admin Dose 200 MG; Start 12/31/18 at 18:00 Hyoscyamine (Levsin (Sl)) 0.125 mg Q4H PRN SL INTESTINAL SPASMS/CRAMPING; S tart 12/31/18 at 17:00 Metformin HCl (Glucophage) 500 mg BID WITH MEALS PO Last administered on 12/14 17:25; Admin Dose 500 MG; Start 12/31/18 at 17:35 Metoprolol Tartrate (Lopressor) 100 mg BID PO Last administered on 01/03/19 23:04; Admin Dose 100 MG; Start 12/31/18 at 21:00 Sucralfate (Carafate) 1 gm AC MEALS AND BEDTIME PO Last administered on 01/04/19 17:24; Admin Dose 1 GM; Start 12/31/18 at 21:00 Topiramate (Topamax) 25 mg DAILY PO Last administered on 01/04/19 08:22; Admin Dose 25 MG; Start 12/31/18 at 18:00 Insulin Aspart (Novolog Insulin Pen) NOVOLOG *MODERATE* ALGORITHM WITH MEALS BEDTIME SC Last administered on 01/04/19 17:30; Admin Dose 2 UNIT; Start 12/31/18 at 17:35 Miscellaneous Information 1 ea NOTE XX ; Start 12/31/18 at 17:30 Glucose (Glutose) 15 gm Q15M PRN PO DECREASED GLUCOSE; Start 12/31/18 at 17:30 Glucose (Glutose) 22.5 gm Q15M PRN PO DECREASED GLUCOSE; Start 12/31/18 at 17:30 Dextrose (D50w Syringe) 25 ml Q15M PRN IV DECREASED GLUCOSE; Start 12/31/18 at 17:30 Dextrose (D50w Syringe) 50 ml Q15M PRN IV DECREASED GLUCOSE; Start 12/31/18 at 17:30 Glucagon (Glucagen) 1 mg Q15M PRN IM DECREASED GLUCOSE; Start 12/31/18 at 17:30 Glucose (Glutose) 15 gm Q15M PRN BUCCAL DECREASED GLUCOSE; Start 12/31/18 at 17:30 DORITA HEART Jan 04, 2019 19:25
[2019-01-05 00:28] VITALS: BP 130/64; PULSE 50; RESP 19
[2019-01-05] MEDS: HYDROmorphONE 1 MG/ML SYG IV PRN ×4 (02:07→15:37)
[2019-01-05 04:31] VITALS: BP 121/62; PULSE 58; RESP 19
[2019-01-05] MEDS: HYDROCODONE/APAP (5/325) TAB PO PRN ×2 (06:44→11:26)
[2019-01-05] MEDS: SUCRALFATE 1 GM TAB PO SCH ×3 (06:44→17:28)
[2019-01-05 07:40] VITALS: BP 121/62; PULSE 61; RESP 18
[2019-01-05] MEDS: INSULIN ASPART [NOVOLOG] 3 ML PEN SC SCH ×3 (07:54→17:29)
[2019-01-05] MEDS: GABAPENTIN 100 MG CAP PO SCH ×2 (08:03→12:23)
[2019-01-05] MEDS: CHOLECALCIFEROL 1,000 UNIT TAB PO SCH (08:04)
[2019-01-05] MEDS: TOPIRAMATE 25 MG TAB PO SCH (08:04)
[2019-01-05] MEDS: metFORMIN 500 MG TAB PO SCH ×2 (08:04→17:28)
[2019-01-05] MEDS: METOPROLOL 100 MG TAB PO SCH (09:00)
[2019-01-05 11:30] VITALS: BP 105/54; PULSE 63; RESP 19
[2019-01-05] MEDS ORDERED: METOPROLOL 25 MG TAB PO SCH (21:00)
== END 2019-01-05 18:00 | DRG 472 ==
LOC: REC 06:05 → ICU 15:28 → 6WM 01-01 17:21
PROVIDERS: ADMIT Neurological Surgery; ATTEND Neurological Surgery
PROC: 01N10ZZ Release Cervical Nerve, Open Approach (ICD-10-PCS; 2018-12-31)
PROC: 0MBC0ZZ Excision of Upper Spine Bursa and Ligament, Open Approach (ICD-10-PCS; 2018-12-31)
PROC: 4A11X4G Monitoring of Peripheral Nervous Electrical Activity, Intraoperative, External Approach (ICD-10-PCS; 2018-12-31)
PROC: 0RG2071 Fusion of 2 or more Cervical Vertebral Joints with Autologous Tissue Substitute, Posterior Approach, Posterior Column, Open Approach (ICD-10-PCS; principal; 2018-12-31 08:00)
DX: M47.12 Other spondylosis with myelopathy, cervical region (principal); Z68.43 Body mass index [BMI] 50.0-59.9, adult; M54.12 Radiculopathy, cervical region; M46.02 Spinal enthesopathy, cervical region; M48.02 Spinal stenosis, cervical region; E11.8 Type 2 diabetes mellitus with unspecified complications; E66.01 Morbid (severe) obesity due to excess calories; I10 Essential (primary) hypertension; E78.5 Hyperlipidemia, unspecified; E03.9 Hypothyroidism, unspecified; K58.9 Irritable bowel syndrome, unspecified; M79.7 Fibromyalgia; J45.909 Unspecified asthma, uncomplicated; Z79.4 Long term (current) use of insulin
CPT/HCPCS: 72020; 72125; 80048; 80053; 82962; 85014; 85018; 85025; 86850; 86900; 86901; 87081; 87086; 88304; 94640; 97116; 97161; 97530; J0690; J1100; J1170; J1815; J2250; J2405; J2710; J2795; J3010; J3480

== ENCOUNTER 2019-01-05 16:55 | Inpatient (IN) | payer OTHER ==
[~2019-01-05] VITALS: Ht 160 cm; Wt 131.6 kg
[~2019-01-05 16:55] MED LIST changes: +ALBU8.5H8 INH; +ASPI-817 PO; -ASPIRIN; -ATIVAN; -BENTYL; +CHOL100062 PO; +CIPR500S2 PO; +CLO15CR1 TOP; -COLACE; +FLUC200T PO; +FLUT16SP17 NASAL; +GABA400C14 ORAL; -GABAPENTIN; +HYOS0.1297 SL; -LEVOTHYROXINE; -LOMOTIL; -LOSARTAN; -MELOXICAM; +METF-849 ORAL; -METFORMIN; +METO100T11 ORAL; -METOPROLOL; -NAPROXEN; -NORCO; -OMEPRAZOLE; +ONDA4TAB95 ORAL; +OXYC-431 ORAL; -PAROXETINE; -POLYMYXIN/BACITRACIN 1L IRRIG IRR ONE; +SUCR1TAB56 PO; +TOPI25TA10 ORAL; -ZOLPIDEM; -[UNRECOGNIZED DRUG - OTHER]; -miralax
[2019-01-05 18:30] VITALS: BP 140/70; PULSE 76; RESP 18
[2019-01-05] MEDS ORDERED: BISACODYL 10 MG SUPP PR PRN (19:00)
[2019-01-05] MEDS ORDERED: MAGNESIUM HYDROXIDE 30ML CUP PO PRN (19:00)
[2019-01-05] MEDS ORDERED: LACTULOSE 30ML CUP PO PRN (19:00)
[2019-01-05] MEDS ORDERED: ACETAMINOPHEN 325 MG TAB PO PRN ×2 (19:00→20:00)
[2019-01-05] MEDS ORDERED: PENDING SANTYL ORDER FOR WOUND CARE XX PRN (19:00)
[2019-01-05] MEDS ORDERED: HYDROCODONE/APAP (5/325) TAB PO PRN (20:00)
[2019-01-05 20:17] VITALS: BP 110/66; PULSE 72; RESP 20
[2019-01-05] MEDS ORDERED: GLUCOSE GEL 15 GRAM TUBE PO PRN ×2 (20:30)
[2019-01-05] MEDS ORDERED: GLUCAGON 1 MG INJ IM PRN (20:30)
[2019-01-05] MEDS ORDERED: GLUCOSE GEL 15 GRAM TUBE BUCCAL PRN (20:30)
[2019-01-05] MEDS ORDERED: DEXTROSE 50% 50 ML SYRINGE IV PRN ×2 (20:30)
[2019-01-05 21:00] VITALS: Ht 160 cm; Wt 131.6 kg
[2019-01-05] MEDS: INSULIN ASPART [NOVOLOG] 3 ML PEN SC SCH (21:00)
[2019-01-05] MEDS: SUCRALFATE 1 GM TAB PO SCH (21:17)
[2019-01-05] MEDS: SENNA TAB PO SCH (21:17)
[2019-01-05] MEDS: METOPROLOL 25 MG TAB PO SCH (21:17)
[2019-01-05] MEDS: DOCUSATE SODIUM 100 MG CAP PO SCH (21:18)
[2019-01-05] MEDS: GABAPENTIN 100 MG CAP PO SCH (21:18)
[2019-01-05] MEDS: HYDROmorphONE 1 MG/ML SYG IV PRN (21:20)
[2019-01-05] MEDS ORDERED: NALOXONE (0.4 MG/ML) INJ IV PRN (22:30)
[2019-01-05] MEDS ORDERED: AL HYDROX/MG HYDROX/SIMETH 30 ML CUP PO PRN (22:30)
[2019-01-05] MEDS ORDERED: HYOSCYAMINE 0.125 MG SUBL TAB PO PRN (22:30)
[2019-01-06] MEDS: HYDROmorphONE 1 MG/ML SYG IV PRN ×7 (01:42→22:02)
[2019-01-06 02:05] VITALS: BP 127/65; PULSE 76; RESP 20
[2019-01-06] MEDS: SUCRALFATE 1 GM TAB PO SCH ×4 (06:36→21:10)
[2019-01-06] MEDS: INSULIN ASPART [NOVOLOG] 3 ML PEN SC SCH ×4 (07:35→21:00)
[2019-01-06 07:47] VITALS: BP 125/58; PULSE 84; RESP 20
[2019-01-06] MEDS: ACCU-CHEK XX SCH ×4 (07:52→21:00)
[2019-01-06] MEDS: metFORMIN 500 MG TAB PO SCH ×2 (07:54→17:58)
[2019-01-06] MEDS: DOCUSATE SODIUM 100 MG CAP PO SCH ×2 (08:54→21:00)
[2019-01-06] MEDS: GABAPENTIN 100 MG CAP PO SCH ×3 (08:54→21:10)
[2019-01-06] MEDS: TOPIRAMATE 25 MG TAB PO SCH (08:55)
[2019-01-06] MEDS: METOPROLOL 25 MG TAB PO SCH ×2 (08:55→21:11)
[2019-01-06] MEDS ORDERED: CHOLECALCIFEROL 2,000 UNIT CAP PO SCH (09:00)
[2019-01-06] MEDS ORDERED: HYDROCODONE/APAP (5/325) TAB PO PRN (12:00)
[2019-01-06 14:00] VITALS: BP 127/60; PULSE 69; RESP 20
--- NOTE | 2019-01-06 15:52 | HP ---
Date/Time of Note Date/Time of Note DATE: 01/06/19 TIME: 15:52 Assessment/Plan VTE Prophylaxis Risk score (from Ns)>0 risk: 6 SCD applied (from Ns): Yes Pharmacological prophylaxis: NA/contraindicated Pharm contraindication: surgical contra Lines/Catheters IV [facility] Saline Lock Urinary Cath still in place: No Assessment/Plan Assessment/Plan - Cervical stenosis with cervical myelopathy, s/p PCDF C3-7 on 12/31/[address] Haley. Continue cervical collar x6 weeks, physical therapy, continue [place] and Dilaudid as needed for pain. - Hypertension. - Diabetes. - Hypothyroidism. - Irritable bowel syndrome. - Fibromyalgia. - Morbid obesity with BMI 51.4 - History of asthma. Further recommendations based on clinical course. Plan of care discussed with Dr. Jimenez. Result Diagram: 01/06/19 0552 01/06/19 0552 Results 24hrs Laboratory Tests Test 01/05/19 21:19 01/06/19 02:00 01/06/19 05:52 01/06/19 07:50 Bedside Glucose 126 121 Urine Color YELLOW Urine Clarity CLOUDY A Urine pH 7.0 Urine Specific 1.016 [place] Urine Ketones NEGATIVE Urine Nitrite POSITIVE A Urine Bilirubin NEGATIVE Urine Urobilinogen 1+ H Urine Leukocyte NEGATIVE Esterase Urine Microscopic 1 RBC Urine Microscopic 0 WBC Urine Squamous FEW Epithelial Cells Urine Calcium MANY A Oxalate Crystals Urine Amorphous FEW A Crystals Urine Bacteria FEW A Urine Mucus FEW A Urine Hemoglobin NEGATIVE Urine Glucose NEGATIVE Urine Total Protein NEGATIVE White Blood Count 8.9 Red Blood Count 4.26 Hemoglobin 12.9 Hematocrit 39.0 Mean Corpuscular 91.5 Volume Mean Corpuscular 30.3 Hemoglobin Mean Corpuscular 33.1 Hemoglobin Concent Red Cell 14.3 Distribution Width Platelet Count 321 Mean Platelet Volume 9.6 Immature 0.400 Granulocytes % Neutrophils % 53.3 Lymphocytes % 32.0 Monocytes % 7.7 Eosinophils % 5.9 Basophils % 0.7 Nucleated Red Blood 0.0 Cells % Immature 0.040 H Granulocytes # Neutrophils # 4.7 Lymphocytes # 2.9 Monocytes # 0.7 Eosinophils # 0.5 Basophils # 0.1 Nucleated Red Blood 0.0 Cells # Sodium Level 139 Potassium Level 3.4 L Chloride Level 103 Carbon Dioxide Level 28 Anion Gap 8 Blood Urea Nitrogen 11 Creatinine 0.57 Est Glomerular > 60 Filtrat Rate mL/min Glucose Level 123 Calcium Level 8.9 Total Bilirubin 0.7 Direct Bilirubin 0.00 Indirect Bilirubin 0.7 Aspartate Amino 37 Transf (AST/SGOT) Alanine 36 Aminotransferase (AL T/SGPT) Alkaline Phosphatase 81 Total Protein 6.7 Albumin 3.5 Globulin 3.20 Albumin/Globulin 1.09 Ratio Test 01/06/19 12:06 Bedside Glucose 116 HPI/ROS Admit Date/Time Admit Date/Time Jan 05, 2019 at 18:41 Hx of Present Illness The patient is a 58-year-old female who underwent posterior cervical decompression and fusion of C3-7 on December 31 for cervical stenosis with cervical myelopathy. Patient has multiple comorbidities including hypertension diabetes hypothyroidism, irritable bowel syndrome fibromyalgia and morbid obesity. Patient had a slow improvement with physical therapy due to significant pain and multiple comorbidities. Patient admitted to acute rehab for physical and occupational therapy as well as pain management. ROS 12 point review of systems is negative except what mentioned in HPI PMH/Family/Social Past Medical History Medications Current Medications Docusate Sodium (Colace) 100 mg BID PO Last administered on 01/06/19at 08:54; Admin Dose 100 MG; Start 01/05/19 at 21:00 Senna (Senokot) 1 tab HS PO Last administered on 01/05/19at 21:17; Admin Dose 1 TAB; Start 01/05/19 at 21:00 Magnesium Hydroxide (Milk Of Mag) 30 ml BID PRN PO CONSTIPATION; Start 01/05/19 at 19:00 Lactulose (Enulose) 20 gm DAILY PRN PO CONSTIPATION; Start 01/05/19 at 19:00 Bisacodyl (Dulcolax Supp) 10 mg DAILY PRN PA CONSTIPATION; Start 01/05/19 at 19:00 Acetaminophen (Tylenol Tab) 650 mg Q4H PRN PO PAIN; Start 01/05/19 at 19:00 Miscellaneous Information (Pending [facility] Order For Wound Care) This patient reece... PRN PRN XX WOUND CARE; Start 01/05/19 at 19:00 Hydromorphone HCl (Dilaudid) 1 mg Q3H PRN IV SEVERE PAIN LEVEL 7-10 Last administered on 01/06/19at 15:46; Admin Dose 1 MG; Start 01/05/19 at 20:00 Acetaminophen (Tylenol Tab) 650 mg Q4H PRN PO MILD PAIN(1-3)OR ELEVATED TEMP; Start 01/05/19 at 20:00 Gabapentin (Neurontin) 200 mg TID PO Last administered on 01/06/19at 12:12; Admin Dose 200 MG; Start 01/05/19 at 21:00 Metoprolol Tartrate (Lopressor) 25 mg BID PO Last administered on 01/06/19at 08:55; Admin Dose 25 MG; Start 01/05/19 at 21:00 Sucralfate (Carafate) 1 gm AC MEALS AND BEDTIME PO Last administered on 01/06/19at 12:11; Admin Dose 1 GM; Start 01/05/19 at 21:00 Insulin Aspart (Novolog Insulin Pen) NOVOLOG *MODERATE* ALGORITHM WITH MEALS BEDTIME SC ; Start 01/05/19 at 21:00 Miscellaneous Information 1 ea NOTE XX ; Start 01/05/19 at 20:30 Glucose (Glutose) 15 gm Q15M PRN PO DECREASED GLUCOSE; Start 01/05/19 at 20:30 Glucose (Glutose) 22.5 gm Q15M PRN PO DECREASED GLUCOSE; Start 01/05/19 at 20:30 Dextrose (D50w Syringe) 25 ml Q15M PRN IV DECREASED GLUCOSE; Start 01/05/19 at 20:30 Dextrose (D50w Syringe) 50 ml Q15M PRN IV DECREASED GLUCOSE; Start 01/05/19 at 20:30 Glucagon (Glucagen) 1 mg Q15M PRN IM DECREASED GLUCOSE; Start 01/05/19 at 20:30 Glucose (Glutose) 15 gm Q15M PRN BUCCAL DECREASED GLUCOSE; Start 01/05/19 at 20:30 Al Hydrox/Mg Hydrox/Simethicone (Mag-Al Plus) 15 ml Q4H PRN PO GASTROINTESTINAL UPSET; Start 01/05/19 at 22:30 Cholecalciferol (Vitamin D) 5,000 unit DAILY PO Last administered on 01/06/19at 08:51; Admin Dose 5,000 UNIT; Start 01/06/19 at 09:00 Hyoscyamine (Levsin (Sl)) 0.125 mg Q4H PRN PO INTESTINAL SPASMS/CRAMPING; Start 01/05/19 at 22:30 Metformin HCl (Glucophage) 500 mg BID WITH MEALS PO Last administered on 01/06/19at 07:54; Admin Dose 500 MG; Start 01/06/19 at 07:35 Diagnostic Test (Pha) (Accu-Chek) 1 ea AC MEALS AND BEDTIME XX Last administered on 01/06/19at 12:07; Admin Dose 1 EA; Start 01/06/19 at 07:05 Naloxone HCl (Narcan) 0.2 mg Q2M PRN IV DECREASED REPIRATORY RATE; Start 01/05/19 at 22:30 Topiramate (Topamax) 25 mg DAILY PO Last administered on 01/06/19at 08:55; Admin Dose 25 MG; Start 01/06/19 at 09:00 Oxycodone/ Acetaminophen (Endocet (10/ 325)) 1 tab Q4H PRN PO MODERATE PAIN LEVEL 4-6; Start 01/06/19 at 16:00 Oxycodone/ Acetaminophen (Endocet (10/ 325)) 2 tab Q4H PRN PO PAIN LEVEL 6-10; Start 01/06/19 at 16:00 Coded Allergies: morphine (Verified Allergy, Intermediate, rashes and itchiness, 01/05/19) Past Surgical History Past Surgical Hx: other (Prior cervical surgery, cholecystectomy) Social History Alcohol Use: none Smoking Status: Former smoker Drug Use: none Exam/Review of Systems Vital Signs Vitals Vital Signs Date Temp Pulse Resp B/P (MAP) Pulse Ox O2 O2 Flow FiO2 Time Delivery Rate 01/06/19 97.8 69 20 127/60 94 14:00 (82) 01/05/19 Nasal 2.0 18:30 Cannula Intake and Output 01/05/19 01/05/19 01/06/19 1515:00 23:00 07:00 IntakeIntake Total 100 ml 450 ml OutputOutput Total 350 ml BalanceBalance 100 ml 100 ml Exam Constitutional: alert, oriented Head: normocephalic Neck: other (Status post surgery, cervical collar) Respiratory: clear to auscultation Cardiovascular: nl pulses Gastrointestinal: soft, non-tender Musculoskeletal: nl extremities to inspection Extremities: normal pulses DORITA HEART Jan 06, 2019 15:52
[2019-01-06] MEDS ORDERED: OXYCODONE/ACETAMINOPHEN (10/325) TAB PO PRN (16:00)
--- NOTE | 2019-01-06 18:21 | CONS ---
DATE OF ADMISSION: 01/05/2019 DATE OF CONSULTATION: 01/06/2019 REHABILITATION POSTADMISSION PHYSICIAN EVALUATION REHABILITATION IMPAIRMENT CATEGORY: Cervical myelopathy and spinal stenosis status post decompressive laminectomy. ACTIVE COMORBIDITIES: 1. Acute pain syndrome. 2. Diabetes mellitus type 2. 3. Hypertension. 4. Hypothyroidism. 5. Irritable bowel syndrome. 6. Asthma. 7. Morbid obesity. 8. Fibromyalgia. 9. Impairments in self-care and mobility. HISTORY OF PRESENT ILLNESS: The patient is a pleasant 58-year-old female with a history of multiple medical comorbidities, who had been noting increasing upper extremity pain and weakness in addition to worsening walking despite conservative measures. The patient reports having ambulated with the use of a walker and having occasional urinary incontinence. Workup did reveal cervical myelopathy in addition to radiculopathy and the patient underwent posterior cervical decompressive laminectomy and fusion on 12/29/2018. Postoperative course was notable for significant impairments in self-care and mobility, significant pain, and the patient has been cleared to transfer to the rehabilitation unit for comprehensive interdisciplinary rehab care. FUNCTIONAL HISTORY: Prior to recent events, she was independent to modified independent for self-care tasks and mobility. Currently, patient requires moderate to minimal assist for self-care and mobility tasks. I have reviewed the preadmission screen and patient's current functional status is consistent with the preadmission screen. FAMILY AND SOCIAL HISTORY: The patient lives at home with family and hopes to return there upon discharge. There are 2 stair steps to entryway. PAST MEDICAL HISTORY: 1. Diabetes mellitus type 2. 2. Hypertension. 3. Hypothyroidism. 4. Irritable bowel syndrome. 5. Fibromyalgia. 6. Asthma. CURRENT MEDICATIONS: 1. Vitamin D p.r.n. 2. Neurontin 200 mg p.o. t.i.d. 3. [place] p.r.n. 4. Dilaudid p.r.n. 5. Hyoscyamine 0.125 mg sublingual q.4 p.r.n. 6. Insulin sliding scale. 7. Glucophage 500 mg p.o. b.i.d. 8. Lopressor 25 mg p.o. b.i.d. 9. Carafate 1 gram p.o. before meals and at bedtime. 10. Topamax 25 mg p.o. daily. ALLERGIES: MORPHINE. PHYSICAL EXAMINATION: VITAL SIGNS: She is currently afebrile with stable vital signs. HEENT: Extraocular motions are intact. The surgical incision site appears clean, dry and intact. LUNGS: Clear anteriorly. CARDIAC: S1, S2. ABDOMEN: Soft, nontender, positive bowel sounds. NEUROLOGIC: She is awake and alert and oriented to person, place and time. She can follow simple 1-step commands. She demonstrates antigravity strength in bilateral upper extremity and lower extremity. She does have impaired dynamic balance. PLAN: The patient has been admitted for comprehensive interdisciplinary acute rehab and is anticipated to tolerate 3 hours of daily therapy in divided doses for at least 5/7 days a week. The treatment plan will include: 1. Physical therapy to focus on bed mobility, transfers, and household ambulation with the goal of having the patient reach a standby assist level. 2. Occupational therapy to focus on hygiene, grooming, dressing, bathing, and toileting activities with goal of having patient reach standby assist level. 3. Rehabilitation nursing for carryover of therapeutic interventions, the goal of continent of bowel and bladder, and the goal of pain adequately managed on oral medications. REHABILITATION BARRIER: Pain. INTERVENTION FOR BARRIER: Interdisciplinary approach. ESTIMATED LENGTH OF STAY: 7 days DISPOSITION GOAL: Home with family. I acknowledge that I performed a full physical examination on this patient within 24 hours of admission to the rehabilitation unit and believe the patient is a good candidate for comprehensive interdisciplinary rehab care and is anticipated to make reasonable goals in a reasonable period of time as outlined above. Dictated By: GRANT SALDAÑA/MYESHA Conf#: [id number] DID#: [id number] MTDD
[2019-01-06 20:10] VITALS: BP 113/57; PULSE 77; RESP 18
[2019-01-06] MEDS: SENNA TAB PO SCH (21:00)
[2019-01-07] MEDS: HYDROmorphONE 1 MG/ML SYG IV PRN ×3 (01:03→07:02)
[2019-01-07 02:00] VITALS: BP 124/62; PULSE 75; RESP 18
[2019-01-07 07:00] VITALS: BP 104/54; PULSE 67; RESP 18
[2019-01-07] MEDS: SUCRALFATE 1 GM TAB PO SCH ×4 (07:01→20:56)
[2019-01-07] MEDS: ACCU-CHEK XX SCH ×4 (07:05→21:02)
[2019-01-07] MEDS: INSULIN ASPART [NOVOLOG] 3 ML PEN SC SCH ×4 (07:35→21:00)
[2019-01-07] MEDS: DOCUSATE SODIUM 100 MG CAP PO SCH ×2 (08:18→21:00)
[2019-01-07] MEDS: metFORMIN 500 MG TAB PO SCH ×2 (08:18→17:27)
[2019-01-07] MEDS: GABAPENTIN 100 MG CAP PO SCH ×3 (08:19→21:01)
[2019-01-07] MEDS: TOPIRAMATE 25 MG TAB PO SCH (08:19)
--- NOTE | 2019-01-07 08:45 | PN ---
Date/Time of Note Date/Time of Note DATE: 01/07/19 TIME: 08:40 Subjective AWAKE ALERT , MILD PAIN Objective Vital Signs Date Temp Pulse Resp B/P (MAP) Pulse Ox O2 O2 Flow FiO2 Time Delivery Rate 01/07/19 97.8 75 18 124/62 94 Room Air 02:00 (82) 01/05/19 2.0 18:30 Intake and Output 01/06/19 01/06/19 01/07/19 1515:00 23:00 07:00 IntakeIntake Total 1870 ml BalanceBalance 1870 ml Exam LUNGS CTA COR RR UES 4+/5 CLOF MOD A XT , MIN A GAIT Results/Medications Result Diagram: 01/06/19 0552 01/06/19 0552 Results 24 hrs Laboratory Tests Test 01/06/19 12:06 01/06/19 17:52 01/06/19 21:09 01/07/19 08:08 Bedside Glucose 116 102 111 116 Medications Current Medications Docusate Sodium (Colace) 100 mg BID PO Last administered on 01/07/19at 08:18; Admin Dose 100 MG; Start 01/05/19 at 21:00 Senna (Senokot) 1 tab HS PO Last administered on 01/05/19at 21:17; Admin Dose 1 TAB; Start 01/05/19 at 21:00 Magnesium Hydroxide (Milk Of Mag) 30 ml BID PRN PO CONSTIPATION; Start 01/05/19 at 19:00 Lactulose (Enulose) 20 gm DAILY PRN PO CONSTIPATION; Start 01/05/19 at 19:00 Bisacodyl (Dulcolax Supp) 10 mg DAILY PRN [place] CONSTIPATION; Start 01/05/19 at 19:00 Acetaminophen (Tylenol Tab) 650 mg Q4H PRN PO PAIN; Start 01/05/19 at 19:00 Miscellaneous Information (Pending [facility] Order For Wound Care) This patient reece... PRN PRN XX WOUND CARE; Start 01/05/19 at 19:00 Hydromorphone HCl (Dilaudid) 1 mg Q3H PRN IV SEVERE PAIN LEVEL 7-10 Last administered on 01/07/19at 07:02; Admin Dose 1 MG; Start 01/05/19 at 20:00 Acetaminophen (Tylenol Tab) 650 mg Q4H PRN PO MILD PAIN(1-3)OR ELEVATED TEMP; Start 01/05/19 at 20:00 Gabapentin (Neurontin) 200 mg TID PO Last administered on 01/07/19at 08:19; Admin Dose 200 MG; Start 01/05/19 at 21:00 Metoprolol Tartrate (Lopressor) 25 mg BID PO Last administered on 01/06/19at 21:11; Admin Dose 25 MG; Start 01/05/19 at 21:00 Sucralfate (Carafate) 1 gm AC MEALS AND BEDTIME PO Last administered on 01/07/19at 07:01; Admin Dose 1 GM; Start 01/05/19 at 21:00 Insulin Aspart (Novolog Insulin Pen) NOVOLOG *MODERATE* ALGORITHM WITH MEALS BEDTIME SC ; Start 01/05/19 at 21:00 Miscellaneous Information 1 ea NOTE XX ; Start 01/05/19 at 20:30 Glucose (Glutose) 15 gm Q15M PRN PO DECREASED GLUCOSE; Start 01/05/19 at 20:30 Glucose (Glutose) 22.5 gm Q15M PRN PO DECREASED GLUCOSE; Start 01/05/19 at 2 0:30 Dextrose (D50w Syringe) 25 ml Q15M PRN IV DECREASED GLUCOSE; Start 01/05/19 at 20:30 Dextrose (D50w Syringe) 50 ml Q15M PRN IV DECREASED GLUCOSE; Start 01/05/19 at 20:30 Glucagon (Glucagen) 1 mg Q15M PRN IM DECREASED GLUCOSE; Start 01/05/19 at 20:30 Glucose (Glutose) 15 gm Q15M PRN BUCCAL DECREASED GLUCOSE; Start 01/05/19 at 20:30 Al Hydrox/Mg Hydrox/Simethicone (Mag-Al Plus) 15 ml Q4H PRN PO GASTROINTESTINAL UPSET; Start 01/05/19 at 22:30 Cholecalciferol (Vitamin D) 5,000 unit DAILY PO Last administered on 01/06/19at 08:51; Admin Dose 5,000 UNIT; Start 01/06/19 at 09:00 Hyoscyamine (Levsin (Sl)) 0.125 mg Q4H PRN PO INTESTINAL SPASMS/CRAMPING; Start 01/05/19 at 22:30 Metformin HCl (Glucophage) 500 mg BID WITH MEALS PO Last administered on 01/07/19at 08:18; Admin Dose 500 MG; Start 01/06/19 at 07:35 Diagnostic Test (Pha) (Accu-Chek) 1 ea AC MEALS AND BEDTIME XX Last administ ered on 01/06/19at 17:58; Admin Dose 1 EA; Start 01/06/19 at 07:05 Naloxone HCl (Narcan) 0.2 mg Q2M PRN IV DECREASED REPIRATORY RATE; Start 01/05/19 at 22:30 Topiramate (Topamax) 25 mg DAILY PO Last administered on 01/07/19at 08:19; Admin Dose 25 MG; Start 01/06/19 at 09:00 Oxycodone/ Acetaminophen (Endocet (10/ 325)) 1 tab Q4H PRN PO MODERATE PAIN LEVEL 4-6 Last administered on 01/06/19at 20:00; Admin Dose 1 TAB; Start 01/06/19 at 16:00 Oxycodone/ Acetaminophen (Endocet (10/ 325)) 2 tab Q4H PRN PO PAIN LEVEL 6-10; Start 01/06/19 at 16:00 Assessment/Plan Additional Assessment/Plan 1. CERVICAL MYELOPATHY/ DECOMP FUSION CONT THERAPEUTIC INTERVENTIONS DISCUSSED [facility] REHAB NURSING 2. Diabetes mellitus type 2.MAINTAIN BS <150 3. Hypertension. 4. Hypothyroidism. 5. Irritable bowel syndrome. 6. Asthma. 7. Morbid obesity. 8. Fibromyalgia. 9. Impairments in self-care and mobility. 10. PAIN SYNDROME PRN NARCOTICS OREN BALDERAS MD Jan 07, 2019 08:45
[2019-01-07] MEDS: METOPROLOL 25 MG TAB PO SCH ×2 (09:00→21:00)
[2019-01-07] MEDS ORDERED: POTASSIUM CHLORIDE (SR) 20 MEQ TAB PO STA (09:01)
[2019-01-07] MEDS: CHOLECALCIFEROL 1,000 UNIT TAB PO SCH (10:38)
[2019-01-07] MEDS: OXYCODONE/ACETAMINOPHEN (10/325) TAB PO PRN ×4 (10:58→23:50)
[2019-01-07 14:00] VITALS: BP 119/58; PULSE 73; RESP 18
--- NOTE | 2019-01-07 16:00 | PN ---
Date/Time of Note Date/Time of Note DATE: 01/07/19 TIME: 15:57 Assessment/Plan VTE Prophylaxis Risk score (from Ns)>0 risk: 5 SCD applied (from Ns): Yes SCD contraindicated: other Pharmacological prophylaxis: other Pharm contraindication: other Lines[facility] Ur[facility] Cath still in place: No Assessment/Plan Assessment/Plan - Hypokalemia as of 01/06; resolved today - will order labs; will fu - Cervical stenosis with cervical myelopathy, s/p PCDF C3-7 on 12/31/[address] Haley. Continue cervical collar x6 weeks, physical therapy, continue [place] and Dilaudid as needed for pain. - Hypertension. - Diabetes. - Glycemic control - Hypothyroidism. - Irritable bowel syndrome. - Fibromyalgia. - Morbid obesity with BMI 51.4 - weight management - History of asthma. Further recommendations based on clinical course. Plan of care discussed with Dr. Jimenez. Result Diagram: 01/06/19 0552 01/06/19 0552 Results 24hrs Laboratory Tests Test 01/06/19 17:52 01/06/19 21:09 01/07/19 08:08 01/07/19 11:47 Bedside Glucose 102 111 116 118 Exam/Review of Systems Exam Vitals Vital Signs Date Temp Pulse Resp B/P (MAP) Pulse Ox O2 O2 Flow FiO2 Time Delivery Rate 01/07/19 98.0 67 18 104/54 93 Room Air 07:00 (71) 01/05/19 2.0 18:30 Intake and Output 01/06/19 01/06/19 01/07/19 1515:00 23:00 07:00 IntakeIntake Total 1870 ml BalanceBalance 1870 ml Constitutional: alert, well developed Psych: nl mood/affect Eyes: nl lids, nl sclera ENMT: nl external ears & nose Neck: non-tender Respiratory: clear to auscultation Cardiovascular: nl pulses, other (s1s2) Gastrointestinal: soft, non-tender Musculoskeletal: nl extremities to inspection Extremities: normal pulses Neurological: nl mental status, nl speech Skin: nl turgor Lymph: nontender Results Results 24hrs Laboratory Tests Test 01/06/19 17:52 01/06/19 21:09 01/07/19 08:08 01/07/19 11:47 Bedside Glucose 102 111 116 118 Medications Medication Current Medications Docusate Sodium (Colace) 100 mg BID PO Last administered on 01/07/19at 08:18; Admin Dose 100 MG; Start 01/05/19 at 21:00 Senna (Senokot) 1 tab HS PO Last administered on 01/05/19at 21:17; Admin Dose 1 TAB; Start 01/05/19 at 21:00 Magnesium Hydroxide (Milk Of Mag) 30 ml BID PRN PO CONSTIPATION; Start 01/05/19 at 19:00 Lactulose (Enulose) 20 gm DAILY PRN PO CONSTIPATION; Start 01/05/19 at 19:00 Bisacodyl (Dulcolax Supp) 10 mg DAILY PRN [place] CONSTIPATION; Start 01/05/19 at 19:00 Acetaminophen (Tylenol Tab) 650 mg Q4H PRN PO PAIN; Start 01/05/19 at 19:00 Miscellaneous Information (Pending [facility] Order For Wound Care) This patient reece... PRN PRN XX WOUND CARE; Start 01/05/19 at 19:00 Hydromorphone HCl (Dilaudid) 1 mg Q3H PRN IV SEVERE PAIN LEVEL 7-10 Last administered on 01/07/19at 07:02; Admin Dose 1 MG; Start 01/05/19 at 20:00 Acetaminophen (Tylenol Tab) 650 mg Q4H PRN PO MILD PAIN(1-3)OR ELEVATED TEMP; Start 01/05/19 at 20:00 Gabapentin (Neurontin) 200 mg TID PO Last administered on 01/07/19at 12:49; Admin Dose 200 MG; Start 01/05/19 at 21:00 Metoprolol Tartrate (Lopressor) 25 mg BID PO Last administered on 01/06/19at 21:11; Admin Dose 25 MG; Start 01/05/19 at 21:00 Sucralfate (Carafate) 1 gm AC MEALS AND BEDTIME PO Last administered on 01/07/19at 12:26; Admin Dose 1 GM; Start 01/05/19 at 21:00 Insulin Aspart (Novolog Insulin Pen) NOVOLOG *MODERATE* ALGORITHM WITH MEALS BEDTIME SC ; Start 01/05/19 at 21:00 Miscellaneous Information 1 ea NOTE XX ; Start 01/05/19 at 20:30 Glucose (Glutose) 15 gm Q15M PRN PO DECREASED GLUCOSE; Start 01/05/19 at 20:30 Glucose (Glutose) 22.5 gm Q15M PRN PO DECREASED GLUCOSE; Start 01/05/19 at 20:30 Dextrose (D50w Syringe) 25 ml Q15M PRN IV DECREASED GLUCOSE; Start 01/05/19 at 20:30 Dextrose (D50w Syringe) 50 ml Q15M PRN IV DECREASED GLUCOSE; Start 01/05/19 at 20:30 Glucagon (Glucagen) 1 mg Q15M PRN IM DECREASED GLUCOSE; Start 01/05/19 at 20:30 Glucose (Glutose) 15 gm Q15M PRN BUCCAL DECREASED GLUCOSE; Start 01/05/19 at 20:30 Al Hydrox/Mg Hydrox/Simethicone (Mag-Al Plus) 15 ml Q4H PRN PO GASTROINTESTINAL UPSET; Start 01/05/19 at 22:30 Hyoscyamine (Levsin (Sl)) 0.125 mg Q4H PRN PO INTESTINAL SPASMS/CRAMPING; Start 01/05/19 at 22:30 Metformin HCl (Glucophage) 500 mg BID WITH MEALS PO Last administered on 01/07/19at 08:18; Admin Dose 500 MG; Start 01/06/19 at 07:35 Diagnostic Test (Pha) (Accu-Chek) 1 ea AC MEALS AND BEDTIME XX Last administered on 01/06/19at 17:58; Admin Dose 1 EA; Start 01/06/19 at 07:05 Naloxone HCl (Narcan) 0.2 mg Q2M PRN IV DECREASED REPIRATORY RATE; Start 01/05/19 at 22:30 Topiramate (Topamax) 25 mg DAILY PO Last administered on 01/07/19at 08:19; Admin Dose 25 MG; Start 01/06/19 at 09:00 Oxycodone/ Acetaminophen (Endocet (10/ 325)) 1 tab Q4H PRN PO MODERATE PAIN LEVEL 4-6 Last administered on 01/06/19at 20:00; Admin Dose 1 TAB; Start 01/06/19 at 16:00 Oxycodone/ Acetaminophen (Endocet (10/ 325)) 2 tab Q4H PRN PO PAIN LEVEL 6-10 Last administered on 01/07/19at 15:09; Admin Dose 2 TAB; Start 01/06/19 at 16:00 Potassium Chloride (Klor-Con 20) 40 meq ONCE ONCE PO ; Start 01/07/19 at 17:00; Stop 01/07/19 at 17:01 Cholecalciferol (Vitamin D) 5,000 unit DAILY PO Last administered on 01/07/19at 10:38; Admin Dose 5,000 UNIT; Start 01/07/19 at 10:30 NELDA LOWE Jan 07, 2019 16:00
[2019-01-07] MEDS ORDERED: POTASSIUM CHLORIDE (SR) 20 MEQ TAB PO ONE (17:00)
[2019-01-07 20:00] VITALS: BP 104/47; PULSE 80; RESP 18
[2019-01-07] MEDS: SENNA TAB PO SCH (21:00)
[2019-01-08 02:00] VITALS: BP 102/52; PULSE 67; RESP 17
[2019-01-08] MEDS: OXYCODONE/ACETAMINOPHEN (10/325) TAB PO PRN ×5 (03:53→20:40)
[2019-01-08] MEDS: SUCRALFATE 1 GM TAB PO SCH ×4 (06:48→20:40)
[2019-01-08] MEDS: INSULIN ASPART [NOVOLOG] 3 ML PEN SC SCH ×4 (07:35→20:45)
[2019-01-08] MEDS: ACCU-CHEK XX SCH ×4 (08:06→20:45)
[2019-01-08 08:16] VITALS: BP 124/61; PULSE 66; RESP 18
[2019-01-08] MEDS: DOCUSATE SODIUM 100 MG CAP PO SCH ×2 (09:00→20:44)
[2019-01-08] MEDS ORDERED: CHOLECALCIFEROL 1,000 UNIT TAB PO SCH (09:00)
[2019-01-08] MEDS: metFORMIN 500 MG TAB PO SCH ×2 (09:06→17:22)
[2019-01-08] MEDS: GABAPENTIN 100 MG CAP PO SCH ×3 (09:06→20:40)
[2019-01-08] MEDS: CHOLECALCIFEROL 1,000 UNIT TAB PO SCH (09:06)
[2019-01-08] MEDS: TOPIRAMATE 25 MG TAB PO SCH (09:06)
[2019-01-08] MEDS: METOPROLOL 25 MG TAB PO SCH ×2 (09:07→20:45)
--- NOTE | 2019-01-08 09:40 | PN ---
Date/Time of Note Date/Time of Note DATE: 01/08/19 TIME: 09:38 Subjective AWAKE ALERT, UP IN WC ASPEN COLLAR MILD PAIN Objective Vital Signs Date Temp Pulse Resp B/P (MAP) Pulse Ox O2 O2 Flow FiO2 Time Delivery Rate 01/08/19 98.1 66 18 124/61 95 Room Air 08:16 (82) 01/05/19 2.0 18:30 Intake and Output 01/07/19 01/07/19 01/08/19 1515:00 23:00 07:00 IntakeIntake Total 2100 ml 780 ml OutputOutput Total 800 ml BalanceBalance 1300 ml 780 ml Exam LUNGS CTA UES TRICEP, GRI 4/5 BILAATER DELIA [place] BUES CLOF XT MOD A GAIT MIN A FWW Results/Medications Result Diagram: 01/06/19 0552 01/07/19 1650 Results 24 hrs Laboratory Tests Test 01/07/19 11:47 01/07/19 16:50 01/07/19 17:23 01/07/19 20:54 Bedside Glucose 118 113 106 Sodium Level 138 Potassium Level 3.8 Chloride Level 103 Carbon Dioxide Level 23 Anion Gap 12 Blood Urea Nitrogen 13 Creatinine 0.68 Est Glomerular > 60 Filtrat Rate mL/min Glucose Level 133 Calcium Level 9.6 Test 01/08/19 08:05 Bedside Glucose 108 Medications Current Medications Docusate Sodium (Colace) 100 mg BID PO Last administered on 01/07/19at 08:18; Admin Dose 100 MG; Start 01/05/19 at 21:00 Senna (Senokot) 1 tab HS PO Last administered on 01/05/19at 21:17; Admin Dose 1 TAB; Start 01/05/19 at 21:00 Magnesium Hydroxide (Milk Of Mag) 30 ml BID PRN PO CONSTIPATION; Start 01/05/19 at 19:00 Lactulose (Enulose) 20 gm DAILY PRN PO CONSTIPATION; Start 01/05/19 at 19:00 Bisacodyl (Dulcolax Supp) 10 mg DAILY PRN [place] CONSTIPATION; Start 01/05/19 at 19:00 Acetaminophen (Tylenol Tab) 650 mg Q4H PRN PO PAIN; Start 01/05/19 at 19:00 Miscellaneous Information (Pending [facility] Order For Wound Care) This patient reece... PRN PRN XX WOUND CARE; Start 01/05/19 at 19:00 Hydromorphone HCl (Dilaudid) 1 mg Q3H PRN IV SEVERE PAIN LEVEL 7-10 Last administered on 01/07/19at 07:02; Admin Dose 1 MG; Start 01/05/19 at 20:00 Acetaminophen (Tylenol Tab) 650 mg Q4H PRN PO MILD PAIN(1-3)OR ELEVATED TEMP; Start 01/05/19 at 20:00 Gabapentin (Neurontin) 200 mg TID PO Last administered on 01/08/19at 09:06; Admin Dose 200 MG; Start 01/05/19 at 21:00 Metoprolol Tartrate (Lopressor) 25 mg BID PO Last administered on 01/08/19at 09: 07; Admin Dose 25 MG; Start 01/05/19 at 21:00 Sucralfate (Carafate) 1 gm AC MEALS AND BEDTIME PO Last administered on 01/08/19at 06:48; Admin Dose 1 GM; Start 01/05/19 at 21:00 Insulin Aspart (Novolog Insulin Pen) NOVOLOG *MODERATE* ALGORITHM WITH MEALS BEDTIME SC ; Start 01/05/19 at 21:00 Miscellaneous Information 1 ea NOTE XX ; Start 01/05/19 at 20:30 Glucose (Glutose) 15 gm Q15M PRN PO DECREASED GLUCOSE; Start 01/05/19 at 20:30 Glucose (Glutose) 22.5 gm Q15M PRN PO DECREASED GLUCOSE; Start 01/05/19 at 20:30 Dextrose (D50w Syringe) 25 ml Q15M PRN IV DECREASED GLUCOSE; Start 01/05/19 at 20:30 Dextrose (D50w Syringe) 50 ml Q15M PRN IV DECREASED GLUCOSE; Start 01/05/19 at 20:30 Glucagon (Glucagen) 1 mg Q15M PRN IM DECREASED GLUCOSE; Start 01/05/19 at 20:30 Glucose (Glutose) 15 gm Q15M PRN BUCCAL DECREASED GLUCOSE; Start 01/05/19 at 20:30 Al Hydrox/Mg Hydrox/Simethicone (Mag-Al Plus) 15 ml Q4H PRN PO GASTROINTESTINAL UPSET; Start 01/05/19 at 22:30 Hyoscyamine (Levsin (Sl)) 0.125 mg Q4H PRN PO INTESTINAL SPASMS/CRAMPING; Start 01/05/19 at 22:30 Metformin HCl (Glucophage) 500 mg BID WITH MEALS PO Last administered on 01/08/19 09:06; Admin Dose 500 MG; Start 01/06/19 at 07:35 Diagnostic Test (Pha) (Accu-Chek) 1 ea AC MEALS AND BEDTIME XX Last administered on 01/07/19at 21:02; Admin Dose 1 EA; Start 01/06/19 at 07:05 Naloxone HCl (Narcan) 0.2 mg Q2M PRN IV DECREASED REPIRATORY RATE; Start 01/05/19 at 22:30 Topiramate (Topamax) 25 mg DAILY PO Last administered on 01/08/19 09:06; Admin Dose 25 MG; Start 01/06/19 at 09:00 Oxycodone/ Acetaminophen (Endocet (10/ 325)) 1 tab Q4H PRN PO MODERATE PAIN LEVEL 4-6 Last administered on 01/06/19at 20:00; Admin Dose 1 TAB; Start 01/06/19 at 16:00 Oxycodone/ Acetaminophen (Endocet (10/ 325)) 2 tab Q4H PRN PO PAIN LEVEL 6-10 Last administered on 01/08/19at 08:07; Admin Dose 2 TAB; Start 01/06/19 at 16:00 Cholecalciferol (Vitamin D) 5,000 unit DAILY PO Last administered on 01/08/19at 09:06; Admin Dose 5,000 UNIT; Start 01/07/19 at 10:30 Assessment/Plan Additional Assessment/Plan 1. CERVICAL MYELOPATHY/ DECOMP FUSION CONT THERAPEUTIC INTERVENTIONS DISCUSSED [facility] REHAB NURSING 2. Diabetes mellitus type 2.MAINTAIN BS <150 3. Hypertension.CONTROLLED 4. Hypothyroidism. 5. Irritable bowel syndrome. 6. Asthma. 7. Morbid obesity. 8. Fibromyalgia.NO FLARE 9. Impairments in self-care and mobility. 10. PAIN SYNDROME PRN NARCOTICS OREN BALDERAS MD Jan 08, 2019 09:40
--- NOTE | 2019-01-08 12:39 | PN ---
Date/Time of Note Date/Time of Note DATE: 01/08/19 TIME: 12:39 Assessment/Plan VTE Prophylaxis Risk score (from Nsg)>0 risk: 4 SCD applied (from Nsg): Yes Pharmacological prophylaxis: LMWH Lines/Catheters IV Catheter Type (from Nrsg): Saline Lock Urinary Cath still in place: No Assessment/Plan Hospital Course - Cervical stenosis with cervical myelopathy, s/p PCDF C3-7 on 12/31/[address] Haley. Continue cervical collar x6 weeks, physical therapy, continue [place] and Dilaudid as needed for pain. - Hypertension. - Diabetes. - Hypothyroidism. - Irritable bowel syndrome. - Fibromyalgia. - Morbid obesity with BMI 51.4 - History of asthma. Result Diagram: 01/06/19 0552 01/07/19 1650 Results 24hrs Laboratory Tests Test 01/07/19 16:50 01/07/19 17:23 01/07/19 20:54 01/08/19 08:05 Sodium Level 138 Potassium Level 3.8 Chloride Level 103 Carbon Dioxide Level 23 Anion Gap 12 Blood Urea Nitrogen 13 Creatinine 0.68 Est Glomerular > 60 Filtrat Rate mL/min Glucose Level 133 Calcium Level 9.6 Bedside Glucose 113 106 108 Test 01/08/19 11:51 Bedside Glucose 118 Subjective 24 Hr Interval Summary Free Text/Dictation Patient has some neck pain Exam/Review of Systems Exam Vitals Vital Signs Date Temp Pulse Resp B/P (MAP) Pulse Ox O2 O2 Flow FiO2 Time Delivery Rate 01/08/19 98.1 66 18 124/61 95 Room Air 08:16 (82) 01/05/19 2.0 18:30 Intake and Output 01/07/19 01/07/19 01/08/19 1515:00 23:00 07:00 IntakeIntake Total 2100 ml 780 ml OutputOutput Total 800 ml BalanceBalance 1300 ml 780 ml Constitutional: well developed Head: normocephalic, atraumatic Neck: supple Respiratory: clear to auscultation Cardiovascular: regular rate and rhythm Gastrointestinal: soft, non-tender Extremities: normal pulses Results Results 24hrs Laboratory Tests Test 01/07/19 16:50 01/07/19 17:23 01/07/19 20:54 01/08/19 08:05 Sodium Level 138 Potassium Level 3.8 Chloride Level 103 Carbon Dioxide Level 23 Anion Gap 12 Blood Urea Nitrogen 13 Creatinine 0.68 Est Glomerular > 60 Filtrat Rate mL/min Glucose Level 133 Calcium Level 9.6 Bedside Glucose 113 106 108 Test 01/08/19 11:51 Bedside Glucose 118 Medications Medication Current Medications Docusate Sodium (Colace) 100 mg BID PO Last administered on 01/07/19 08:18; Admin Dose 100 MG; Start 01/05/19 at 21:00 Senna (Senokot) 1 tab HS PO Last administered on 01/05/19at 21:17; Admin Dose 1 TAB; Start 01/05/19 at 21:00 Magnesium Hydroxide (Milk Of Mag) 30 ml BID PRN PO CONSTIPATION; Start 01/05/19 at 19:00 Lactulose (Enulose) 20 gm DAILY PRN PO CONSTIPATION; Start 01/05/19 at 19:00 Bisacodyl (Dulcolax Supp) 10 mg DAILY PRN [place] CONSTIPATION; Start 01/05/19 at 19:00 Acetaminophen (Tylenol Tab) 650 mg Q4H PRN PO PAIN; Start 01/05/19 at 19:00 [facility] This patient reece... PRN PRN XX WOUND CARE; Start 01/05/19 at 19:00 Hydromorphone HCl (Dilaudid) 1 mg Q3H PRN IV SEVERE PAIN LEVEL 7-10 Last administered on 01/07/19at 07:02; Admin Dose 1 MG; Start 01/05/19 at 20:00 Acetaminophen (Tylenol Tab) 650 mg Q4H PRN PO MILD PAIN(1-3)OR ELEVATED TEMP; Start 01/05/19 at 20:00 Gabapentin (Neurontin) 200 mg TID PO Last administered on 01/08/19at 12:05; Admin Dose 200 MG; Start 01/05/19 at 21:00 Metoprolol Tartrate (Lopressor) 25 mg BID PO Last administered on 01/08/19at 09:07; Admin Dose 25 MG; Start 01/05/19 at 21:00 Sucralfate (Carafate) 1 gm AC MEALS AND BEDTIME PO Last administered on 01/08/19at 12:05; Admin Dose 1 GM; Start 01/05/19 at 21:00 Insulin Aspart (Novolog Insulin Pen) NOVOLOG *MODERATE* ALGORITHM WITH MEALS BEDTIME SC ; Start 01/05/19 at 21:00 Miscellaneous Information 1 ea NOTE XX ; Start 01/05/19 at 20:30 Glucose (Glutose) 15 gm Q15M PRN PO DECREASED GLUCOSE; Start 01/05/19 at 20:30 Glucose (Glutose) 22.5 gm Q15M PRN PO DECREASED GLUCOSE; Start 01/05/19 at 20:30 Dextrose (D50w Syringe) 25 ml Q15M PRN IV DECREASED GLUCOSE; Start 01/05/19 at 20:30 Dextrose (D50w Syringe) 50 ml Q15M PRN IV DECREASED GLUCOSE; Start 01/05/19 at 20:30 Glucagon (Glucagen) 1 mg Q15M PRN IM DECREASED GLUCOSE; Start 01/05/19 at 20:30 Glucose (Glutose) 15 gm Q15M PRN BUCCAL DECREASED GLUCOSE; Start 01/05/19 at 20:30 Al Hydrox/Mg Hydrox/Simethicone (Mag-Al Plus) 15 ml Q4H PRN PO GASTROINTESTINAL UPSET; Start 01/05/19 at 22:30 Hyoscyamine (Levsin (Sl)) 0.125 mg Q4H PRN PO INTESTINAL SPASMS/CRAMPING; Start 01/05/19 at 22:30 Metformin HCl (Glucophage) 500 mg BID WITH MEALS PO Last administered on 01/08/19at 09:06; Admin Dose 500 MG; Start 01/06/19 at 07:35 Diagnostic Test (Pha) (Accu-Chek) 1 ea AC MEALS AND BEDTIME XX Last administered on 01/07/19at 21:02; Admin Dose 1 EA; Start 01/06/19 at 07:05 Naloxone HCl (Narcan) 0.2 mg Q2M PRN IV DECREASED REPIRATORY RATE; Start 01/05/19 at 22:30 Topiramate (Topamax) 25 mg DAILY PO Last administered on 01/08/19at 09:06; Admin Dose 25 MG; Start 01/06/19 at 09:00 Oxycodone/ Acetaminophen (Endocet (10/ 325)) 1 tab Q4H PRN PO MODERATE PAIN LEVEL 4-6 Last administered on 01/06/19at 20:00; Admin Dose 1 TAB; Start 01/06/19 at 16:00 Oxycodone/ Acetaminophen (Endocet (10/ 325)) 2 tab Q4H PRN PO PAIN LEVEL 6-10 Last administered on 01/08/19at 12:06; Admin Dose 2 TAB; Start 01/06/19 at 16:00 Cholecalciferol (Vitamin D) 5,000 unit DAILY PO Last administered on 01/08/19at 09:06; Admin Dose 5,000 UNIT; Start 01/07/19 at 10:30 ARSLAN LEON Jan 08, 2019 12:39
[2019-01-08 20:20] VITALS: BP 103/50; PULSE 78; RESP 18
[2019-01-08] MEDS: SENNA TAB PO SCH (20:44)
[2019-01-09 02:26] VITALS: BP 127/59; PULSE 78; RESP 18
[2019-01-09 07:00] VITALS: BP 143/70; PULSE 86; RESP 18
[2019-01-09] MEDS: INSULIN ASPART [NOVOLOG] 3 ML PEN SC SCH ×4 (07:35→20:27)
[2019-01-09] MEDS: ACCU-CHEK XX SCH ×4 (07:48→21:32)
[2019-01-09] MEDS: SUCRALFATE 1 GM TAB PO SCH ×4 (07:49→20:19)
[2019-01-09] MEDS: metFORMIN 500 MG TAB PO SCH ×2 (07:49→17:15)
[2019-01-09] MEDS: OXYCODONE/ACETAMINOPHEN (10/325) TAB PO PRN ×4 (07:50→20:18)
[2019-01-09] MEDS: GABAPENTIN 100 MG CAP PO SCH ×3 (08:54→20:19)
[2019-01-09] MEDS: TOPIRAMATE 25 MG TAB PO SCH (08:55)
[2019-01-09] MEDS: METOPROLOL 25 MG TAB PO SCH ×2 (08:55→20:26)
[2019-01-09] MEDS: CHOLECALCIFEROL 1,000 UNIT TAB PO SCH (08:56)
[2019-01-09] MEDS: DOCUSATE SODIUM 100 MG CAP PO SCH ×2 (09:00→20:27)
--- NOTE | 2019-01-09 12:30 | PN ---
Date/Time of Note Date/Time of Note DATE: 01/09/19 TIME: 12:29 Assessment/Plan VTE Prophylaxis Risk score (from Nsg)>0 risk: 5 SCD applied (from Nsg): Yes Pharmacological prophylaxis: LMWH Lines/Catheters IV Catheter Type (from Nrsg): Saline Lock Urinary Cath still in place: No Assessment/Plan Hospital Course - Cervical stenosis with cervical myelopathy, s/p PCDF C3-7 on 12/31/[address] Haley. Continue cervical collar x6 weeks, physical therapy, continue [place] and Dilaudid as needed for pain. - Hypertension. - Diabetes. - Hypothyroidism. - Irritable bowel syndrome. - Fibromyalgia. - Morbid obesity with BMI 51.4 - History of asthma. Result Diagram: 01/06/19 0552 01/07/19 1650 Results 24hrs Laboratory Tests Test 01/08/19 17:19 01/08/19 20:43 01/09/19 07:47 01/09/19 11:33 Bedside Glucose 89 93 111 100 Subjective 24 Hr Interval Summary Free Text/Dictation Patient has concern regarding drainage from surgery site Exam/Review of Systems Exam Vitals Vital Signs Date Temp Pulse Resp B/P (MAP) Pulse Ox O2 O2 Flow FiO2 Time Delivery Rate 01/09/19 98.7 86 18 143/70 93 Room Air 07:00 (94) 01/05/19 2.0 18:30 Intake and Output 01/08/19 01/08/19 01/09/19 1515:00 23:00 07:00 IntakeIntake Total 1650 ml 720 ml BalanceBalance 1650 ml 720 ml Constitutional: well developed Head: normocephalic, atraumatic Neck: supple Respiratory: clear to auscultation Cardiovascular: regular rate and rhythm Gastrointestinal: soft, non-tender Extremities: normal pulses Results Results 24hrs Laboratory Tests Test 01/08/19 17:19 01/08/19 20:43 01/09/19 07:47 01/09/19 11:33 Bedside Glucose 89 93 111 100 Medications Medication Current Medications Docusate Sodium (Colace) 100 mg BID PO Last administered on 01/07/19at 08:18; Admin Dose 100 MG; Start 01/05/19 at 21:00 Senna (Senokot) 1 tab HS PO Last administered on 01/05/19at 21:17; Admin Dose 1 TAB; Start 01/05/19 at 21:00 Magnesium Hydroxide (Milk Of Mag) 30 ml BID PRN PO CONSTIPATION; Start 01/05/19 at 19:00 Lactulose (Enulose) 20 gm DAILY PRN PO CONSTIPATION; Start 01/05/19 at 19:00 Bisacodyl (Dulcolax Supp) 10 mg DAILY PRN [place] CONSTIPATION; Start 01/05/19 at 19:00 Acetaminophen (Tylenol Tab) 650 mg Q4H PRN PO PAIN; Start 01/05/19 at 19:00 [facility] This patient reece... PRN PRN XX WOUND CARE; Start 01/05/19 at 19:00 Hydromorphone HCl (Dilaudid) 1 mg Q3H PRN IV SEVERE PAIN LEVEL 7-10 Last administered on 01/07/19at 07:02; Admin Dose 1 MG; Start 01/05/19 at 20:00 Acetaminophen (Tylenol Tab) 650 mg Q4H PRN PO MILD PAIN(1-3)OR ELEVATED TEMP; Start 01/05/19 at 20:00 Gabapentin (Neurontin) 200 mg TID PO Last administered on 01/09/19at 11:48; Admin Dose 200 MG; Start 01/05/19 at 21:00 Metoprolol Tartrate (Lopressor) 25 mg BID PO Last administered on 01/09/19at 08:55; Admin Dose 25 MG; Start 01/05/19 at 21:00 Sucralfate (Carafate) 1 gm AC MEALS AND BEDTIME PO Last administered on at 11:48; Admin Dose 1 GM; Start 01/05/19 at 21:00 Insulin Aspart (Novolog Insulin Pen) NOVOLOG *MODERATE* ALGORITHM WITH MEALS BEDTIME SC ; Start 01/05/19 at 21:00 Miscellaneous Information 1 ea NOTE XX ; Start 01/05/19 at 20:30 Glucose (Glutose) 15 gm Q15M PRN PO DECREASED GLUCOSE; Start 01/05/19 at 20:30 Glucose (Glutose) 22.5 gm Q15M PRN PO DECREASED GLUCOSE; Start 01/05/19 at 20:30 Dextrose (D50w Syringe) 25 ml Q15M PRN IV DECREASED GLUCOSE; Start 01/05/19 at 20:30 Dextrose (D50w Syringe) 50 ml Q15M PRN IV DECREASED GLUCOSE; Start 01/05/19 at 20:30 Glucagon (Glucagen) 1 mg Q15M PRN IM DECREASED GLUCOSE; Start 01/05/19 at 20:30 Glucose (Glutose) 15 gm Q15M PRN BUCCAL DECREASED GLUCOSE; Start 01/05/19 at 20:30 Al Hydrox/Mg Hydrox/Simethicone (Mag-Al Plus) 15 ml Q4H PRN PO GASTROINTESTINAL UPSET; Start 01/05/19 at 22:30 Hyoscyamine (Levsin (Sl)) 0.125 mg Q4H PRN PO INTESTINAL SPASMS/CRAMPING; Start 01/05/19 at 22:30 Metformin HCl (Glucophage) 500 mg BID WITH MEALS PO Last administered on 01/09/19 07:49; Admin Dose 500 MG; Start 01/06/19 at 07:35 Diagnostic Test (Pha) (Accu-Chek) 1 ea AC MEALS AND BEDTIME XX Last administered on 01/09/19 11:37; Admin Dose 1 EA; Start 01/06/19 at 07:05 Naloxone HCl (Narcan) 0.2 mg Q2M PRN IV DECREASED REPIRATORY RATE; Start 01/05/19 at 22:30 Topiramate (Topamax) 25 mg DAILY PO Last administered on 01/09/19 08:55; Admin Dose 25 MG; Start 01/06/19 at 09:00 Oxycodone/ Acetaminophen (Endocet (10/ 325)) 1 tab Q4H PRN PO MODERATE PAIN LEVEL 4-6 Last administered on 01/06/19 20:00; Admin Dose 1 TAB; Start 01/06/19 at 16:00 Oxycodone/ Acetaminophen (Endocet (10/ 325)) 2 tab Q4H PRN PO PAIN LEVEL 6-10 Last administered on 01/09/19 11:49; Admin Dose 2 TAB; Start 01/06/19 at 16:00 Cholecalciferol (Vitamin D) 5,000 unit DAILY PO Last administered on 01/09/19 08:56; Admin Dose 5,000 UNIT; Start 01/07/19 at 10:30 ARSLAN LEON Jan 09, 2019 12:30
[2019-01-09 14:00] VITALS: BP 109/53; PULSE 68; RESP 18
[2019-01-09 20:00] VITALS: BP 129/59; PULSE 68; RESP 18
[2019-01-09] MEDS: SENNA TAB PO SCH (20:27)
[2019-01-10] MEDS: OXYCODONE/ACETAMINOPHEN (10/325) TAB PO PRN ×5 (00:22→21:34)
[2019-01-10 02:19] VITALS: BP 120/57; PULSE 67; RESP 18
[2019-01-10] MEDS: SUCRALFATE 1 GM TAB PO SCH ×4 (06:42→21:33)
[2019-01-10 07:00] VITALS: BP 113/57; PULSE 70; RESP 18
[2019-01-10] MEDS: INSULIN ASPART [NOVOLOG] 3 ML PEN SC SCH ×4 (07:35→22:11)
[2019-01-10] MEDS: metFORMIN 500 MG TAB PO SCH ×2 (08:03→18:50)
[2019-01-10] MEDS: ACCU-CHEK XX SCH ×4 (08:03→21:00)
[2019-01-10] MEDS: DOCUSATE SODIUM 100 MG CAP PO SCH ×2 (08:27→21:00)
[2019-01-10] MEDS: GABAPENTIN 100 MG CAP PO SCH ×3 (08:28→21:33)
[2019-01-10] MEDS: TOPIRAMATE 25 MG TAB PO SCH (08:29)
[2019-01-10] MEDS: HYDROmorphONE 1 MG/ML SYG IV PRN (08:32)
[2019-01-10] MEDS: CHOLECALCIFEROL 1,000 UNIT TAB PO SCH (09:00)
[2019-01-10] MEDS: METOPROLOL 25 MG TAB PO SCH ×2 (09:00→21:33)
[2019-01-10] MEDS: HYDROmorphONE 1 MG/ML SYG SC PRN ×3 (12:39→19:29)
[2019-01-10 14:00] VITALS: BP 105/46; PULSE 83; RESP 18
--- NOTE | 2019-01-10 14:23 | PN ---
Date/Time of Note Date/Time of Note DATE: 01/10/19 TIME: 14:22 Assessment/Plan VTE Prophylaxis Risk score (from Nsg)>0 risk: 5 SCD applied (from Nsg): Yes Pharmacological prophylaxis: LMWH Lines/Catheters IV Catheter Type (from Nrsg): Saline Lock Urinary Cath still in place: No Assessment/Plan Hospital Course - Cervical stenosis with cervical myelopathy, s/p PCDF C3-7 on 12/31/[address] Haley. Continue cervical collar x6 weeks, physical therapy, continue [place] and Dilaudid as needed for pain. - Hypertension. - Diabetes. - Hypothyroidism. - Irritable bowel syndrome. - Fibromyalgia. - Morbid obesity with BMI 51.4 - History of asthma. Result Diagram: 01/06/19 0552 01/07/19 1650 Results 24hrs Laboratory Tests Test 01/09/19 17:12 01/09/19 20:16 01/10/19 08:03 01/10/19 12:25 Bedside Glucose 91 108 122 115 Subjective 24 Hr Interval Summary Free Text/Dictation Patient away from room so unable to interview patient Exam/Review of Systems Exam Vitals Vital Signs Date Temp Pulse Resp B/P (MAP) Pulse Ox O2 O2 Flow FiO2 Time Delivery Rate 01/10/19 98.2 70 18 113/57 96 Room Air 07:00 (75) Intake and Output 01/09/19 01/09/19 01/10/19 1515:00 23:00 07:00 IntakeIntake Total 1200 ml 240 ml OutputOutput Total 600 ml BalanceBalance 600 ml 240 ml Exam No examination done as the patient is away from room Results Results 24hrs Laboratory Tests Test 01/09/19 17:12 01/09/19 20:16 01/10/19 08:03 01/10/19 12:25 Bedside Glucose 91 108 122 115 Medications Medication Current Medications Docusate Sodium (Colace) 100 mg BID PO Last administered on 01/10/19at 08:27; Admin Dose 100 MG; Start 01/05/19 at 21:00 Senna (Senokot) 1 tab HS PO Last administered on 01/05/19at 21:17; Admin Dose 1 TAB; Start 01/05/19 at 21:00 Magnesium Hydroxide (Milk Of Mag) 30 ml BID PRN PO CONSTIPATION; Start 01/05/19 at 19:00 Lactulose (Enulose) 20 gm DAILY PRN PO CONSTIPATION; Start 01/05/19 at 19:00 Bisacodyl (Dulcolax Supp) 10 mg DAILY PRN [place] CONSTIPATION; Start 01/05/19 at 19:00 Acetaminophen (Tylenol Tab) 650 mg Q4H PRN PO PAIN; Start 01/05/19 at 19:00 [facility] This patient reece... PRN PRN XX WOUND CARE; Start 01/05/19 at 19:00 Hydromorphone HCl (Dilaudid) 1 mg Q3H PRN IV SEVERE PAIN LEVEL 7-10 Last administered on 01/10/19at 08:32; Admin Dose 1 MG; Start 01/05/19 at 20:00 Acetaminophen (Tylenol Tab) 650 mg Q4H PRN PO MILD PAIN(1-3)OR ELEVATED TEMP; Start 01/05/19 at 20:00 Gabapentin (Neurontin) 200 mg TID PO Last administered on 01/10/19at 12:35; Admin Dose 200 MG; Start 01/05/19 at 21:00 Metoprolol Tartrate (Lopressor) 25 mg BID PO Last administered on 01/09/19at 20:26; Admin Dose 25 MG; Start 01/05/19 at 21:00 Sucralfate (Carafate) 1 gm AC MEALS AND BEDTIME PO Last administered on 01/10/19at 12:34; Admin Dose 1 GM; Start 01/05/19 at 21:00 Insulin Aspart (Novolog Insulin Pen) NOVOLOG *MODERATE* ALGORITHM WITH MEALS BEDTIME SC ; Start 01/05/19 at 21:00 Miscellaneous Information 1 ea NOTE XX ; Start 01/05/19 at 20:30 Glucose (Glutose) 15 gm Q15M PRN PO DECREASED GLUCOSE; Start 01/05/19 at 20:30 Glucose (Glutose) 22.5 gm Q15M PRN PO DECREASED GLUCOSE; Start 01/05/19 at 20:30 Dextrose (D50w Syringe) 25 ml Q15M PRN IV DECREASED GLUCOSE; Start 01/05/19 at 20:30 Dextrose (D50w Syringe) 50 ml Q15M PRN IV DECREASED GLUCOSE; Start 01/05/19 at 20:30 Glucagon (Glucagen) 1 mg Q15M PRN IM DECREASED GLUCOSE; Start 01/05/19 at 20:30 Glucose (Glutose) 15 gm Q15M PRN BUCCAL DECREASED GLUCOSE; Start 01/05/19 at 20:30 Al Hydrox/Mg Hydrox/Simethicone (Mag-Al Plus) 15 ml Q4H PRN PO GASTROINTESTINAL UPSET; Start 01/05/19 at 22:30 Hyoscyamine (Levsin (Sl)) 0.125 mg Q4H PRN PO INTESTINAL SPASMS/CRAMPING; Start 01/05/19 at 22:30 Metformin HCl (Glucophage) 500 mg BID WITH MEALS PO Last administered on 01/10/19 08:03; Admin Dose 500 MG; Start 01/06/19 at 07:35 Diagnostic Test (Pha) (Accu-Chek) 1 ea AC MEALS AND BEDTIME XX Last administered on 01/10/19 11:30; Admin Dose 1 EA; Start 01/06/19 at 07:05 Naloxone HCl (Narcan) 0.2 mg Q2M PRN IV DECREASED REPIRATORY RATE; Start 01/05/19 at 22:30 Topiramate (Topamax) 25 mg DAILY PO Last administered on 01/10/19 08:29; Admin Dose 25 MG; Start 01/06/19 at 09:00 Oxycodone/ Acetaminophen (Endocet (10/ 325)) 1 tab Q4H PRN PO MODERATE PAIN LEVEL 4-6 Last administered on 01/06/19 20:00; Admin Dose 1 TAB; Start 01/06/19 at 16:00 Oxycodone/ Acetaminophen (Endocet (10/ 325)) 2 tab Q4H PRN PO PAIN LEVEL 6-10 Last administered on 01/10/19 10:05; Admin Dose 2 TAB; Start 01/06/19 at 16:00 Cholecalciferol (Vitamin D) 5,000 unit DAILY PO Last administered on 01/09/19 08:56; Admin Dose 5,000 UNIT; Start 01/07/19 at 10:30 Hydromorphone HCl (Dilaudid) 1 mg Q3H PRN SC SEVERE PAIN LEVEL 7-10 Last administered on 01/10/19 12:39; Admin Dose 1 MG; Start 01/10/19 at 08:30 ARSLAN LEON Jan 10, 2019 14:23
--- NOTE | 2019-01-10 16:45 | PN ---
Date/Time of Note Date/Time of Note DATE: 01/10/19 TIME: 16:42 Subjective RN reprots wound drainage Objective Vital Signs Date Temp Pulse Resp B/P (MAP) Pulse Ox O2 O2 Flow FiO2 Time Delivery Rate 01/10/19 97.9 83 18 105/46 97 Room Air 14:00 (65) Intake and Output 01/09/19 01/09/19 01/10/19 1515:00 23:00 07:00 IntakeIntake Total 1200 ml 240 ml OutputOutput Total 600 ml BalanceBalance 600 ml 240 ml Exam S transfers S ambulation 150 feet Results/Medications Result Diagram: 01/10/19 1548 01/07/19 1650 Results 24 hrs Laboratory Tests Test 01/09/19 17:12 01/09/19 20:16 01/10/19 08:03 01/10/19 12:25 Bedside Glucose 91 108 122 115 Test 01/10/19 15:48 White Blood Count 8.3 Red Blood Count 4.41 Hemoglobin 13.4 Hematocrit 41.1 Mean Corpuscular 93.2 Volume Mean Corpuscular 30.4 Hemoglobin Mean Corpuscular 32.6 Hemoglobin Concent Red Cell 14.0 Distribution Width Platelet Count 340 Mean Platelet Volume 9.8 Immature 0.400 Granulocytes % Neutrophils % 51.4 Lymphocytes % 32.4 Monocytes % 7.6 Eosinophils % 7.2 H Basophils % 1.0 Nucleated Red Blood 0.0 Cells % Immature 0.030 Granulocytes # Neutrophils # 4.3 Lymphocytes # 2.7 Monocytes # 0.6 Eosinophils # 0.6 H Basophils # 0.1 Nucleated Red Blood 0.0 Cells # Medications Current Medications Docusate Sodium (Colace) 100 mg BID PO Last administered on 01/10/19at 08:27; Admin Dose 100 MG; Start 01/05/19 at 21:00 Senna (Senokot) 1 tab HS PO Last administered on 01/05/19at 21:17; Admin Dose 1 TAB; Start 01/05/19 at 21:00 Magnesium Hydroxide (Milk Of Mag) 30 ml BID PRN PO CONSTIPATION; Start 01/05/19 at 19:00 Lactulose (Enulose) 20 gm DAILY PRN PO CONSTIPATION; Start 01/05/19 at 19:00 Bisacodyl (Dulcolax Supp) 10 mg DAILY PRN [place] CONSTIPATION; Start 01/05/19 at 19:00 Acetaminophen (Tylenol Tab) 650 mg Q4H PRN PO PAIN; Start 01/05/19 at 19:00 Miscellaneous Information (Pending [facility] Order For Wound Care) This patient reece... PRN PRN XX WOUND CARE; Start 01/05/19 at 19:00 Hydromorphone HCl (Dilaudid) 1 mg Q3H PRN IV SEVERE PAIN LEVEL 7-10 Last administered on 01/10/19at 08:32; Admin Dose 1 MG; Start 01/05/19 at 20:00 Acetaminophen (Tylenol Tab) 650 mg Q4H PRN PO MILD PAIN(1-3)OR ELEVATED TEMP; Start 01/05/19 at 20:00 Gabapentin (Neurontin) 200 mg TID PO Last administered on 01/10/19at 12:35; Admin Dose 200 MG; Start 01/05/19 at 21:00 Metoprolol Tartrate (Lopressor) 25 mg BID PO Last administered on 01/09/19at 20:26; Admin Dose 25 MG; Start 01/05/19 at 21:00 Sucralfate (Carafate) 1 gm AC MEALS AND BEDTIME PO Last administered on 01/10/19at 12:34; Admin Dose 1 GM; Start 01/05/19 at 21:00 Insulin Aspart (Novolog Insulin Pen) NOVOLOG *MODERATE* ALGORITHM WITH MEALS BEDTIME SC ; Start 01/05/19 at 21:00 Miscellaneous Information 1 ea NOTE XX ; Start 01/05/19 at 20:30 Glucose (Glutose) 15 gm Q15M PRN PO DECREASED GLUCOSE; Start 01/05/19 at 20:30 Glucose (Glutose) 22.5 gm Q15M PRN PO DECREASED GLUCOSE; Start 01/05/19 at 20:30 Dextrose (D50w Syringe) 25 ml Q15M PRN IV DECREASED GLUCOSE; Start 01/05/19 at 20:30 Dextrose (D50w Syringe) 50 ml Q15M PRN IV DECREASED GLUCOSE; Start 01/05/19 at 20:30 Glucagon (Glucagen) 1 mg Q15M PRN IM DECREASED GLUCOSE; Start 01/05/19 at 20:30 Glucose (Glutose) 15 gm Q15M PRN BUCCAL DECREASED GLUCOSE; Start 01/05/19 at 20:30 Al Hydrox/Mg Hydrox/Simethicone (Mag-Al Plus) 15 ml Q4H PRN PO GASTROINTESTINAL UPSET; Start 01/05/19 at 22:30 Hyoscyamine (Levsin (Sl)) 0.125 mg Q4H PRN PO INTESTINAL SPASMS/CRAMPING; Start 01/05/19 at 22:30 Metformin HCl (Glucophage) 500 mg BID WITH MEALS PO Last administered on 01/10/19 08:03; Admin Dose 500 MG; Start 01/06/19 at 07:35 Diagnostic Test (Pha) (Accu-Chek) 1 ea AC MEALS AND BEDTIME XX Last administered on 01/10/19 11:30; Admin Dose 1 EA; Start 01/06/19 at 07:05 Naloxone HCl (Narcan) 0.2 mg Q2M PRN IV DECREASED REPIRATORY RATE; Start 01/05/19 at 22:30 Topiramate (Topamax) 25 mg DAILY PO Last administered on 01/10/19 08:29; Admin Dose 25 MG; Start 01/06/19 at 09:00 Oxycodone/ Acetaminophen (Endocet (10/ 325)) 1 tab Q4H PRN PO MODERATE PAIN LEVEL 4-6 Last administered on 01/06/19 20:00; Admin Dose 1 TAB; Start 01/06/19 at 16:00 Oxycodone/ Acetaminophen (Endocet (10/ 325)) 2 tab Q4H PRN PO PAIN LEVEL 6-10 Last administered on 01/10/19 15:21; Admin Dose 2 TAB; Start 01/06/19 at 16:00 Cholecalciferol (Vitamin D) 5,000 unit DAILY PO Last administered on 01/09/19 08:56; Admin Dose 5,000 UNIT; Start 01/07/19 at 10:30 Hydromorphone HCl (Dilaudid) 1 mg Q3H PRN SC SEVERE PAIN LEVEL 7-10 Last administered on 01/10/19 16:26; Admin Dose 1 MG; Start 01/10/19 at 08:30 Assessment/Plan Additional Assessment/Plan Rehab- Cervical myelopathy-s/p decomp fusion Continue interdisciplinary rehab ID- check wound culture, CBC Diabetes mellitus type 2. Hypertension. Hypothyroidism. Irritable bowel syndrome. Asthma. Morbid obesity. Fibromyalgia. GRANT BALDERAS MD Jan 10, 2019 16:45
[2019-01-10 20:00] VITALS: BP 108/57; PULSE 76; RESP 18
[2019-01-10] MEDS: SENNA TAB PO SCH (21:00)
[2019-01-10] MEDS: NEOMYC/POLYMYX/BACIT 30 GM OINT TOP SCH (22:10)
[2019-01-11] MEDS: HYDROmorphONE 1 MG/ML SYG SC PRN ×3 (00:10→19:43)
[2019-01-11 02:00] VITALS: BP 126/62; PULSE 68; RESP 17
[2019-01-11] MEDS: ACCU-CHEK XX SCH ×4 (07:05→20:36)
[2019-01-11 07:30] VITALS: BP 132/53; PULSE 72; RESP 18
[2019-01-11] MEDS: INSULIN ASPART [NOVOLOG] 3 ML PEN SC SCH ×4 (07:35→20:36)
[2019-01-11] MEDS: SUCRALFATE 1 GM TAB PO SCH ×4 (08:07→20:33)
[2019-01-11] MEDS: metFORMIN 500 MG TAB PO SCH ×2 (08:08→17:26)
[2019-01-11] MEDS: DOCUSATE SODIUM 100 MG CAP PO SCH ×2 (09:00→20:36)
[2019-01-11] MEDS: CHOLECALCIFEROL 1,000 UNIT TAB PO SCH (09:08)
[2019-01-11] MEDS: GABAPENTIN 100 MG CAP PO SCH ×3 (09:09→20:33)
[2019-01-11] MEDS: METOPROLOL 25 MG TAB PO SCH ×2 (09:09→20:34)
[2019-01-11] MEDS: OXYCODONE/ACETAMINOPHEN (10/325) TAB PO PRN ×3 (09:10→22:36)
[2019-01-11] MEDS: TOPIRAMATE 25 MG TAB PO SCH (09:10)
[2019-01-11] MEDS: NEOMYC/POLYMYX/BACIT 30 GM OINT TOP SCH ×2 (09:11→20:34)
[2019-01-11 14:00] VITALS: BP 121/67; PULSE 70; RESP 18
--- NOTE | 2019-01-11 15:09 | PN ---
Date/Time of Note Date/Time of Note DATE: 01/11/19 TIME: 15:09 Assessment/Plan VTE Prophylaxis Risk score (from Ns)>0 risk: 4 SCD applied (from Ns): Yes Pharmacological prophylaxis: LMWH Lines/Catheters IV [facility]from [facility] [place] Urinary Cath still in place: No Assessment/Plan Hospital Course - Cervical stenosis with cervical myelopathy, s/p PCDF C3-7 on 12/31/[address] Haley. Continue cervical collar x6 weeks, physical therapy, continue [place] and Dilaudid as needed for pain. - Hypertension. - Diabetes. - Hypothyroidism. - Irritable bowel syndrome. - Fibromyalgia. - Morbid obesity with BMI 51.4 - History of asthma. Result Diagram: 01/10/19 1548 01/07/19 1650 Results 24hrs Laboratory Tests Test 01/10/19 15:48 01/10/19 17:46 01/10/19 21:42 01/11/19 08:06 White Blood Count 8.3 Red Blood Count 4.41 Hemoglobin 13.4 Hematocrit 41.1 Mean Corpuscular 93.2 Volume Mean Corpuscular 30.4 Hemoglobin Mean Corpuscular 32.6 Hemoglobin Concent Red Cell 14.0 Distribution Width Platelet Count 340 Mean Platelet Volume 9.8 Immature 0.400 Granulocytes % Neutrophils % 51.4 Lymphocytes % 32.4 Monocytes % 7.6 Eosinophils % 7.2 H Basophils % 1.0 Nucleated Red Blood 0.0 Cells % Immature 0.030 Granulocytes # Neutrophils # 4.3 Lymphocytes # 2.7 Monocytes # 0.6 Eosinophils # 0.6 H Basophils # 0.1 Nucleated Red Blood 0.0 Cells # Bedside Glucose 135 100 125 Test 01/11/19 12:03 Bedside Glucose 120 Subjective 24 Hr Interval Summary Free Text/Dictation Patient still notes some drainage from surgery site Exam/Review of Systems Exam Vitals Vital Signs Date Temp Pulse Resp B/P (MAP) Pulse Ox O2 O2 Flow FiO2 Time Delivery Rate 01/11/19 98.3 72 18 132/53 93 Room Air 07:30 (79) Intake and Output 01/10/19 01/10/19 01/11/19 1515:00 23:00 07:00 IntakeIntake Total 1500 ml 800 ml OutputOutput Total 600 ml BalanceBalance 900 ml 800 ml Constitutional: well developed Head: normocephalic, atraumatic Neck: supple Respiratory: diminished breath sounds Cardiovascular: regular rate and rhythm Gastrointestinal: soft, non-tender Extremities: normal pulses Results Results 24hrs Laboratory Tests Test 01/10/19 15:48 01/10/19 17:46 01/10/19 21:42 01/11/19 08:06 White Blood Count 8.3 Red Blood Count 4.41 Hemoglobin 13.4 Hematocrit 41.1 Mean Corpuscular 93.2 Volume Mean Corpuscular 30.4 Hemoglobin Mean Corpuscular 32.6 Hemoglobin Concent Red Cell 14.0 Distribution Width Platelet Count 340 Mean Platelet Volume 9.8 Immature 0.400 Granulocytes % Neutrophils % 51.4 Lymphocytes % 32.4 Monocytes % 7.6 Eosinophils % 7.2 H Basophils % 1.0 Nucleated Red Blood 0.0 Cells % Immature 0.030 Granulocytes # Neutrophils # 4.3 Lymphocytes # 2.7 Monocytes # 0.6 Eosinophils # 0.6 H Basophils # 0.1 Nucleated Red Blood 0.0 Cells # Bedside Glucose 135 100 125 Test 01/11/19 12:03 Bedside Glucose 120 Medications Medication Current Medications Docusate Sodium (Colace) 100 mg BID PO Last administered on 01/10/19at 08:27; Admin Dose 100 MG; Start 01/05/19 at 21:00 Senna (Senokot) 1 tab HS PO Last administered on 01/05/19at 21:17; Admin Dose 1 TAB; Start 01/05/19 at 21:00 Magnesium Hydroxide (Milk Of Mag) 30 ml BID PRN PO CONSTIPATION; Start 01/05/19 at 19:00 Lactulose (Enulose) 20 gm DAILY PRN PO CONSTIPATION; Start 01/05/19 at 19:00 Bisacodyl (Dulcolax Supp) 10 mg DAILY PRN [place] CONSTIPATION; Start 01/05/19 at 19:00 Miscellaneous Information (Pending [facility] Order For Wound Care) This patient reece... PRN PRN XX WOUND CARE; Start 01/05/19 at 19:00 Hydromorphone HCl (Dilaudid) 1 mg Q3H PRN IV SEVERE PAIN LEVEL 7-10 Last administered on 01/10/19at 08:32; Admin Dose 1 MG; Start 01/05/19 at 20:00 Acetaminophen (Tylenol Tab) 650 mg Q4H PRN PO MILD PAIN(1-3)OR ELEVATED TEMP; Start 01/05/19 at 20:00 Gabapentin (Neurontin) 200 mg TID PO Last administered on 01/11/19at 12:07; Admin Dose 200 MG; Start 01/05/19 at 21:00 Metoprolol Tartrate (Lopressor) 25 mg BID PO Last administered on 01/11/19at 09:09; Admin Dose 25 MG; Start 01/05/19 at 21:00 Sucralfate (Carafate) 1 gm AC MEALS AND BEDTIME PO Last administered on 01/11/19at 12:05; Admin Dose 1 GM; Start 01/05/19 at 21:00 Insulin Aspart (Novolog Insulin Pen) NOVOLOG *MODERATE* ALGORITHM WITH MEALS BEDTIME SC ; Start 01/05/19 at 21:00 Miscellaneous Information 1 ea NOTE XX ; Start 01/05/19 at 20:30 Glucose (Glutose) 15 gm Q15M PRN PO DECREASED GLUCOSE; Start 01/05/19 at 20:30 Glucose (Glutose) 22.5 gm Q15M PRN PO DECREASED GLUCOSE; Start 01/05/19 at 20:30 Dextrose (D50w Syringe) 25 ml Q15M PRN IV DECREASED GLUCOSE; Start 01/05/19 at 20:30 Dextrose (D50w Syringe) 50 ml Q15M PRN IV DECREASED GLUCOSE; Start 01/05/19 at 20:30 Glucagon (Glucagen) 1 mg Q15M PRN IM DECREASED GLUCOSE; Start 01/05/19 at 20:30 Glucose (Glutose) 15 gm Q15M PRN BUCCAL DECREASED GLUCOSE; Start 01/05/19 at 20:30 Al Hydrox/Mg Hydrox/Simethicone (Mag-Al Plus) 15 ml Q4H PRN PO GASTROINTESTINAL UPSET; Start 01/05/19 at 22:30 Hyoscyamine (Levsin (Sl)) 0.125 mg Q4H PRN PO INTESTINAL SPASMS/CRAMPING; St art 01/05/19 at 22:30 Metformin HCl (Glucophage) 500 mg BID WITH MEALS PO Last administered on 01/11at 08:08; Admin Dose 500 MG; Start 01/06/19 at 07:35 Diagnostic Test (Pha) (Accu-Chek) 1 ea AC MEALS AND BEDTIME XX Last administered on 01/10/19 17:55; Admin Dose 1 EA; Start 01/06/19 at 07:05 Naloxone HCl (Narcan) 0.2 mg Q2M PRN IV DECREASED REPIRATORY RATE; Start 01/05/19 at 22:30 Topiramate (Topamax) 25 mg DAILY PO Last administered on 01/11/19 09:10; Admin Dose 25 MG; Start 01/06/19 at 09:00 Oxycodone/ Acetaminophen (Endocet (10/ 325)) 1 tab Q4H PRN PO MODERATE PAIN LEVEL 4-6 Last administered on 01/06/19 20:00; Admin Dose 1 TAB; Start 01/06/19 at 16:00 Oxycodone/ Acetaminophen (Endocet (10/ 325)) 2 tab Q4H PRN PO PAIN LEVEL 6-10 Last administered on 01/11/19 09:10; Admin Dose 2 TAB; Start 01/06/19 at 16:00 Cholecalciferol (Vitamin D) 5,000 unit DAILY PO Last administered on 01/11/19 09:08; Admin Dose 5,000 UNIT; Start 01/07/19 at 10:30 Hydromorphone HCl (Dilaudid) 1 mg Q3H PRN SC SEVERE PAIN LEVEL 7-10 Last administered on 01/11/19 12:06; Admin Dose 1 MG; Start 01/10/19 at 08:30 Neomycin/ Polymyxin/ Bacitracin (Neosporin Topical Oint) 1 applic BID TOP Last administered on 01/11/19 09:11; Admin Dose 1 APPLIC; Start 01/10/19 at 21:00 ARSLAN LEON Jan 11, 2019 15:09
--- NOTE | 2019-01-11 16:30 | PN ---
Date/Time of Note Date/Time of Note DATE: 01/11/19 TIME: 16:28 Subjective Patient feeling much better Objective Vital Signs Date Temp Pulse Resp B/P (MAP) Pulse Ox O2 O2 Flow FiO2 Time Delivery Rate 01/11/19 98.3 72 18 132/53 93 Room Air 07:30 (79) Intake and Output 01/10/19 01/10/19 01/11/19 1515:00 23:00 07:00 IntakeIntake Total 1500 ml 800 ml OutputOutput Total 600 ml BalanceBalance 900 ml 800 ml Exam integ- slight swelling at incision, slight drainage AK transfers and ambulation Results/Medications Result Diagram: 01/10/19 1548 01/07/19 1650 Results 24 hrs Laboratory Tests Test 01/10/19 17:46 01/10/19 21:42 01/11/19 08:06 01/11/19 12:03 Bedside Glucose 135 100 125 120 Medications Current Medications Docusate Sodium (Colace) 100 mg BID PO Last administered on 01/10/19at 08:27; Admin Dose 100 MG; Start 01/05/19 at 21:00 Senna (Senokot) 1 tab HS PO Last administered on 01/05/19at 21:17; Admin Dose 1 TAB; Start 01/05/19 at 21:00 Magnesium Hydroxide (Milk Of Mag) 30 ml BID PRN PO CONSTIPATION; Start 01/05/19 at 19:00 Lactulose (Enulose) 20 gm DAILY PRN PO CONSTIPATION; Start 01/05/19 at 19:00 Bisacodyl (Dulcolax Supp) 10 mg DAILY PRN [place] CONSTIPATION; Start 01/05/19 at 19:00 Miscellaneous Information (Pending Santyl Order For Wound Care) This patient reece... PRN PRN XX WOUND CARE; Start 01/05/19 at 19:00 Hydromorphone HCl (Dilaudid) 1 mg Q3H PRN IV SEVERE PAIN LEVEL 7-10 Last administered on 01/10/19at 08:32; Admin Dose 1 MG; Start 01/05/19 at 20:00 Acetaminophen (Tylenol Tab) 650 mg Q4H PRN PO MILD PAIN(1-3)OR ELEVATED TEMP; Start 01/05/19 at 20:00 Gabapentin (Neurontin) 200 mg TID PO Last administered on 01/11/19at 12:07; Admin Dose 200 MG; Start 01/05/19 at 21:00 Metoprolol Tartrate (Lopressor) 25 mg BID PO Last administered on 01/11/19at 09:09; Admin Dose 25 MG; Start 01/05/19 at 21:00 Sucralfate (Carafate) 1 gm AC MEALS AND BEDTIME PO Last administered on 01/11/19at 12:05; Admin Dose 1 GM; Start 01/05/19 at 21:00 Insulin Aspart (Novolog Insulin Pen) NOVOLOG *MODERATE* ALGORITHM WITH MEALS BEDTIME SC ; Start 01/05/19 at 21:00 Miscellaneous Information 1 ea NOTE XX ; Start 01/05/19 at 20:30 Glucose (Glutose) 15 gm Q15M PRN PO DECREASED GLUCOSE; Start 01/05/19 at 20:30 Glucose (Glutose) 22.5 gm Q15M PRN PO DECREASED GLUCOSE; Start 01/05/19 at 20:30 Dextrose (D50w Syringe) 25 ml Q15M PRN IV DECREASED GLUCOSE; Start 01/05/19 at 20:30 Dextrose (D50w Syringe) 50 ml Q15M PRN IV DECREASED GLUCOSE; Start 01/05/19 at 20:30 Glucagon (Glucagen) 1 mg Q15M PRN IM DECREASED GLUCOSE; Start 01/05/19 at 20:30 Glucose (Glutose) 15 gm Q15M PRN BUCCAL DECREASED GLUCOSE; Start 01/05/19 at 20:30 Al Hydrox/Mg Hydrox/Simethicone (Mag-Al Plus) 15 ml Q4H PRN PO GASTROINTESTINAL UPSET; Start 01/05/19 at 22:30 Hyoscyamine (Levsin (Sl)) 0.125 mg Q4H PRN PO INTESTINAL SPASMS/CRAMPING; Start 01/05/19 at 22:30 Metformin HCl (Glucophage) 500 mg BID WITH MEALS PO Last administered on 01/11/19at 08:08; Admin Dose 500 MG; Start 01/06/19 at 07:35 Diagnostic Test (Pha) (Accu-Chek) 1 ea AC MEALS AND BEDTIME XX Last administered on 01/10/19at 17:55; Admin Dose 1 EA; Start 01/06/19 at 07:05 Naloxone HCl (Narcan) 0.2 mg Q2M PRN IV DECREASED REPIRATORY RATE; Start 01/05/19 at 22:30 Topiramate (Topamax) 25 mg DAILY PO Last administered on 01/11/19 09:10; Admin Dose 25 MG; Start 01/06/19 at 09:00 Oxycodone/ Acetaminophen (Endocet (10/ 325)) 1 tab Q4H PRN PO MODERATE PAIN LEVEL 4-6 Last administered on 01/06/19 20:00; Admin Dose 1 TAB; Start 01/06/19 at 16:00 Oxycodone/ Acetaminophen (Endocet (10/ 325)) 2 tab Q4H PRN PO PAIN LEVEL 6-10 Last administered on 01/11/19 15:29; Admin Dose 2 TAB; Start 01/06/19 at 16:00 Cholecalciferol (Vitamin D) 5,000 unit DAILY PO Last administered on 01/11/19 09:08; Admin Dose 5,000 UNIT; Start 01/07/19 at 10:30 Hydromorphone HCl (Dilaudid) 1 mg Q3H PRN [place] SEVERE PAIN LEVEL 7-10 Last administered on 01/11/19 12:06; Admin Dose 1 MG; Start 01/10/19 at 08:30 Neomycin/ Polymyxin/ Bacitracin (Neosporin Topical Oint) 1 applic BID TOP Last administered on 01/11/19 09:11; Admin Dose 1 APPLIC; Start 01/10/19 at 21:00 Trimethoprim/ Sulfamethoxazole (Bactrim (Ds)) 1 tab BID PO ; Start 01/11/19 at 21:00 Assessment/Plan Additional Assessment/Plan Rehab- Cervical myelopathy-s/p decomp fusion Great progress, anticipate dc tomorrow ID- case d/w Dr. Crespo. Will start Bactrim DS po and have patient f.u w/ Dr. Haley Diabetes mellitus type 2. Hypertension. Hypothyroidism. Irritable bowel syndrome. Asthma. Morbid obesity. Fibromyalgia. GRANT BALDERAS MD Jan 11, 2019 16:30
--- NOTE | 2019-01-11 16:51 | CONS ---
DATE OF ADMISSION: 01/05/2019 DATE OF CONSULTATION: 01/11/2019 TYPE OF CONSULTATION: Infectious Disease. REASON FOR CONSULTATION: Antibiotic management. HISTORY OF PRESENT ILLNESS: Norah Bunch is a very pleasant 58-year-old female who under went a posterior cervical decompression and fusion of C3 through C7 on 12/31/2018 for cervical stenos is and with cervical myelopathy. She has multiple comorbidities including hypertension, diabetes, hy pothyroidism, morbid obesity, irritable bowel syndrome, fibromyalgia. She had a slow improvement wit h physical therapy due to significant pain and was admitted to acute rehab for physical and occupatio nal therapy as well as pain management on the . On admission, her white count was 8.9, H and H 1 2.9 and 39, platelet count 321,000. BUN and creatinine 11/0.57, glucose of 123 random. She was oper ated on by Dr. Haley. I am here to see her now because she has some dehiscence of her wound and ther e is some drainage of the wound which shows some mixed gram-negative rods. The patient currently is off antibiotics. PAST MEDICAL HISTORY: Operations as outlined. FAMILY HISTORY: Noncontributory. SOCIAL HISTORY: She does not smoke, drink or abuse drugs. ALLERGIES: NONE TO PENICILLIN, SULFA OR FOODS. MEDICATIONS: Per chart. REVIEW OF SYSTEMS: Positive for cholecystectomy as well. She also a former smoker, but she does not smoke now. PHYSICAL EXAMINATION: GENERAL: She is alert, responsive, in no acute distress. VITAL SIGNS: Stable. She is afebrile. SKIN: Without generalized rash. HEENT: Within normal limits. NECK: On the posterior aspect of her neck she has a surgical scar. On the cephalad portion of the s car, there is some dehiscence. There is minimal erythema and there is some minimal drainage. Otherw ise, neck is supple. LYMPH NODES: None palpable. CHEST: Decreased breath sounds. HEART: Without murmur or gallop. ABDOMEN: Soft, nontender. EXTREMITIES: Without cyanosis, clubbing or edema. IMPRESSION AND PLAN: The patient has some drainage from her wound. It is not grossly infected since the area itself is not erythematous; however, she may have a collection or a seroma which is causing some bulging of the posterior neck area with dehiscence. I am going to place her on Bactrim-DS b.i. d. for 1 week. She is to follow up with Dr. Haley. I will dictate my findings to Dr. Jimenez and Dilan Stone and Dr. Otto and nurse practitioner Sarai. Dictated By: MARCOS TURNER MD, JD/MYESHA Conf#: [id number] DID#: [id number] CC: GRANT STONE MD;*EndCC*
[2019-01-11] MEDS: TRIMETHOPRIM/SULFAMETHOX (DS) TAB PO SCH (20:33)
[2019-01-11 20:36] VITALS: BP 111/63; PULSE 68; RESP 18
[2019-01-11] MEDS: SENNA TAB PO SCH (20:36)
[2019-01-12] MEDS: HYDROmorphONE 1 MG/ML SYG SC PRN ×2 (00:27→08:19)
[2019-01-12 03:31] VITALS: BP 110/60; PULSE 64; RESP 18
[2019-01-12] MEDS: SUCRALFATE 1 GM TAB PO SCH (06:36)
[2019-01-12 07:30] VITALS: BP 120/63; PULSE 73; RESP 18
[2019-01-12] MEDS: INSULIN ASPART [NOVOLOG] 3 ML PEN SC SCH (07:35)
[2019-01-12] MEDS: metFORMIN 500 MG TAB PO SCH (07:55)
[2019-01-12] MEDS: ACCU-CHEK XX SCH (07:55)
[2019-01-12] MEDS: TRIMETHOPRIM/SULFAMETHOX (DS) TAB PO SCH (08:14)
[2019-01-12] MEDS: METOPROLOL 25 MG TAB PO SCH (08:15)
[2019-01-12] MEDS: TOPIRAMATE 25 MG TAB PO SCH (08:15)
[2019-01-12] MEDS: GABAPENTIN 100 MG CAP PO SCH (08:15)
[2019-01-12] MEDS: CHOLECALCIFEROL 1,000 UNIT TAB PO SCH (08:16)
[2019-01-12] MEDS: NEOMYC/POLYMYX/BACIT 30 GM OINT TOP SCH (08:16)
[2019-01-12] MEDS: DOCUSATE SODIUM 100 MG CAP PO SCH (09:00)
[2019-01-12] MEDS: OXYCODONE/ACETAMINOPHEN (10/325) TAB PO PRN (10:40)
--- NOTE | 2019-01-12 11:13 | PN ---
Date/Time of Note Date/Time of Note DATE: 01/12/19 TIME: 11:12 Assessment/Plan VTE Prophylaxis Risk score (from Nsg)>0 risk: 4 SCD applied (from Nsg): Yes Pharmacological prophylaxis: LMWH Lines/Catheters IV Catheter Type (from Nrsg): Saline Lock Urinary Cath still in place: No Assessment/Plan Hospital Course - Cervical stenosis with cervical myelopathy, s/p PCDF C3-7 on 12/31/[address] Haley. Continue cervical collar x6 weeks, physical therapy, continue Tripp and Dilaudid as needed for pain. - Hypertension. - Diabetes. - Hypothyroidism. - Irritable bowel syndrome. - Fibromyalgia. - Morbid obesity with BMI 51.4 - History of asthma. Result Diagram: 01/10/19 1548 Results 24hrs Laboratory Tests Test 01/11/19 12:03 01/11/19 17:18 01/11/19 20:31 01/12/19 07:54 Bedside Glucose 120 101 105 119 Subjective 24 Hr Interval Summary Free Text/Dictation Patient is doing well Exam/Review of Systems Exam Vitals Vital Signs Date Temp Pulse Resp B/P (MAP) Pulse Ox O2 O2 Flow FiO2 Time Delivery Rate 01/12/19 97.8 73 18 120/63 95 Room Air 07:30 (82) Intake and Output 01/11/19 01/11/19 01/12/19 1515:00 23:00 07:00 IntakeIntake Total 300 ml 1350 ml 400 ml BalanceBalance 300 ml 1350 ml 400 ml Constitutional: well developed Head: normocephalic, atraumatic Neck: supple Respiratory: clear to auscultation Cardiovascular: regular rate and rhythm Gastrointestinal: soft, non-tender Extremities: normal pulses Results Results 24hrs Laboratory Tests Test 01/11/19 12:03 01/11/19 17:18 01/11/19 20:31 01/12/19 07:54 Bedside Glucose 120 101 105 119 Medications Medication Current Medications Docusate Sodium (Colace) 100 mg BID PO Last administered on 01/10/19at 08:27; Admin Dose 100 MG; Start 01/05/19 at 21:00 Senna (Senokot) 1 tab HS PO Last administered on 01/05/19at 21:17; Admin Dose 1 TAB; Start 01/05/19 at 21:00 Magnesium Hydroxide (Milk Of Mag) 30 ml BID PRN PO CONSTIPATION; Start 01/05/19 at 19:00 Lactulose (Enulose) 20 gm DAILY PRN PO CONSTIPATION; Start 01/05/19 at 19:00 Bisacodyl (Dulcolax Supp) 10 mg DAILY PRN [place] CONSTIPATION; Start 01/05/19 at 19:00 Miscellaneous Information (Pending Santyl Order For Wound Care) This patient reece... PRN PRN XX WOUND CARE; Start 01/05/19 at 19:00 Hydromorphone HCl (Dilaudid) 1 mg Q3H PRN IV SEVERE PAIN LEVEL 7-10 Last administered on 01/10/19at 08:32; Admin Dose 1 MG; Start 01/05/19 at 20:00 Acetaminophen (Tylenol Tab) 650 mg Q4H PRN PO MILD PAIN(1-3)OR ELEVATED TEMP; Start 01/05/19 at 20:00 Gabapentin (Neurontin) 200 mg TID PO Last administered on 01/12/19at 08:15; Admin Dose 200 MG; Start 01/05/19 at 21:00 Metoprolol Tartrate (Lopressor) 25 mg BID PO Last administered on 01/12/19at 08:15; Admin Dose 25 MG; Start 01/05/19 at 21:00 Sucralfate (Carafate) 1 gm AC MEALS AND BEDTIME PO Last administered on 01/12/19at 06:36; Admin Dose 1 GM; Start 01/05/19 at 21:00 Insulin Aspart (Novolog Insulin Pen) NOVOLOG *MODERATE* ALGORITHM WITH MEALS BEDTIME SC ; Start 01/05/19 at 21:00 Miscellaneous Information 1 ea NOTE XX ; Start 01/05/19 at 20:30 Glucose (Glutose) 15 gm Q15M PRN PO DECREASED GLUCOSE; Start 01/05/19 at 20:30 Glucose (Glutose) 22.5 gm Q15M PRN PO DECREASED GLUCOSE; Start 01/05/19 at 20:30 Dextrose (D50w Syringe) 25 ml Q15M PRN IV DECREASED GLUCOSE; Start 01/05/19 at 20:30 Dextrose (D50w Syringe) 50 ml Q15M PRN IV DECREASED GLUCOSE; Start 01/05/19 at 20:30 Glucagon (Glucagen) 1 mg Q15M PRN IM DECREASED GLUCOSE; Start 01/05/19 at 20:30 Glucose (Glutose) 15 gm Q15M PRN BUCCAL DECREASED GLUCOSE; Start 01/05/19 at 20:30 Al Hydrox/Mg Hydrox/Simethicone (Mag-Al Plus) 15 ml Q4H PRN PO GASTROINTESTINAL UPSET; Start 01/05/19 at 22:30 Hyoscyamine (Levsin (Sl)) 0.125 mg Q4H PRN PO INTESTINAL SPASMS/CRAMPING; Start 01/05/19 at 22:30 Metformin HCl (Glucophage) 500 mg BID WITH MEALS PO Last administered on 01/12/19at 07:55; Admin Dose 500 MG; Start 01/06/19 at 07:35 Diagnostic Test (Pha) (Accu-Chek) 1 ea AC MEALS AND BEDTIME XX Last administered on 01/12/19at 07:55; Admin Dose 1 EA; Start 01/06/19 at 07:05 Naloxone HCl (Narcan) 0.2 mg Q2M PRN IV DECREASED REPIRATORY RATE; Start 01/05/19 at 22:30 Topiramate (Topamax) 25 mg DAILY PO Last administered on 01/12/19at 08:15; Admin Dose 25 MG; Start 01/06/19 at 09:00 Oxycodone/ Acetaminophen (Endocet (10/ 325)) 1 tab Q4H PRN PO MODERATE PAIN LEVEL 4-6 Last administered on 01/06/19at 20:00; Admin Dose 1 TAB; Start 01/06/19 at 16:00 Oxycodone/ Acetaminophen (Endocet (10/ 325)) 2 tab Q4H PRN PO PAIN LEVEL 6-10 Last administered on 01/11/19at 22:36; Admin Dose 2 TAB; Start 01/06/19 at 16:00 Cholecalciferol (Vitamin D) 5,000 unit DAILY PO Last administered on 01/12/19 08:16; Admin Dose 5,000 UNIT; Start 01/07/19 at 10:30 Hydromorphone HCl (Dilaudid) 1 mg Q3H PRN [place] SEVERE PAIN LEVEL 7-10 Last administered on 01/12/19at 08:19; Admin Dose 1 MG; Start 01/10/19 at 08:30 Neomycin/ Polymyxin/ Bacitracin (Neosporin Topical Oint) 1 applic BID TOP Last administered on 01/12/19at 08:16; Admin Dose 1 APPLIC; Start 01/10/19 at 21:00 Trimethoprim/ Sulfamethoxazole (Bactrim (Ds)) 1 tab BID PO Last administered on 01/12/19at 08:14; Admin Dose 1 TAB; Start 01/11/19 at 21:00 ARSLAN LEON Jan 12, 2019 11:12
--- NOTE | 2019-01-12 14:06 | DS ---
Date/Time of Note Date/Time of Note DATE: 01/12/19 TIME: 14:05 Discharge Summary Admission/Discharge Info Admit Date/Time Jan 05, 2019 at 18:41 Discharge Date/Time Jan 12, 2019 at 11:08 Discharge Diagnosis 1. Cervical myelopathy and spinal stenosis status post decompressive laminectomy, mild superficial cellulitis at khadar-incision site. 2. Diabetes mellitus type 2. 3. Hypertension. 4. Hypothyroidism. 5. Irritable bowel syndrome. 6. Asthma. 7. Morbid obesity. 8. Fibromyalgia. 9. Improvements in self-care and mobility. Patient Condition: Good Hospital Course The patient was admitted for comprehensive interdisciplinary rehabilitation and made steady functional gains from a Mod level to a SBA level for self care tasks and mobility including ambulating over 150 feet with the use of a FWW. Patient is being discharged home with the recommendation of home health PT, OT and RN follow up. The DC meds are per the medication reconciliation sheet. The discharge equipment recommendations include: FWW, BSC, shower chair. The patient will follow up with PMD upon DC. Home Meds Reported Medications Cholecalciferol* (Vitamin D3*) 1,000 Unit Tablet, 5000 UNIT PO DAILY, TAB 12/31/18 Oxycodone HCl/Acetaminophen (Oxycodone-Acetaminophen 10-325) 1 Each Tablet, 1 TAB ORAL Q6 PRN for PAIN LEVEL 6-10 12/31/18 Gabapentin* (Gabapentin*) 400 Mg Capsule, 1 CAP ORAL TID 12/31/18 Metoprolol Tartrate (Metoprolol Tartrate) 100 Mg Tablet, 1 TAB ORAL BID 12/31/18 Metformin* (Glucophage*) 500 Mg Tab, 1 TAB ORAL BID 12/31/18 Ondansetron Hcl* (Ondansetron Hcl*) 4 Mg Tablet, 1 TAB ORAL Q6 PRN for VOMITTING 12/31/18 Aspirin* (Aspirin* EC) 81 Mg Tablet.dr, 81 MG PO DAILY, TAB 12/31/18 Albuterol Sulfate* (Proair HFA*) 8.5 Gm Hfa.aer.ad, 2 PUFF INH Q4H PRN for WHEEZING AND SOB, #1 INHALER 12/31/18 Fluticasone Propionate* (Fluticasone Propionate* Nasal) 50 Mcg/[place] - 16 Gm [place].susp, 1 SPRAY NASAL DAILY 12/31/18 Topiramate* (Topiramate*) 25 Mg Tablet, 1 TAB ORAL DAILY 12/31/18 Clotrimazole (Clotrim) 15 Gm Cr, 1 TOP TID 12/31/18 Hyoscyamine Sulfate* (Hyoscyamine Sulfate*) 0.125 Mg Tab.subl, 0.125 MG SL Q4H PRN for INTESTINAL SPASMS/CRAMPING, TAB 12/31/18 Sucralfate* (Carafate*) 1 Gm Tab, 1 GM PO AC MEALS AND BEDTIME, TAB 12/31/18 Primary Care Provider Not On Staff Doctor Pending Labs Laboratory Tests Test 01/11/19 17:18 01/11/19 20:31 01/12/19 07:54 Bedside Glucose 101 mg/dL (70-220) 105 mg/dL (70-220) 119 mg/dL (70-220) GRANT BALDERAS MD Jan 12, 2019 14:06
== END 2019-01-12 11:08 | disposition home health service (06) | DRG 560 ==
LOC: VRC 18:41
PROVIDERS: ADMIT Physical Medicine & Rehabilitation; ATTEND Internal Medicine
DX: Z47.89 Encounter for other orthopedic aftercare (principal); Z68.43 Body mass index [BMI] 50.0-59.9, adult; T81.31XA Disruption of external operation (surgical) wound, not elsewhere classified, initial encounter; T81.49XA Infection following a procedure, other surgical site, initial encounter; E11.9 Type 2 diabetes mellitus without complications; I10 Essential (primary) hypertension; E03.9 Hypothyroidism, unspecified; K58.9 Irritable bowel syndrome, unspecified; E66.01 Morbid (severe) obesity due to excess calories; M79.7 Fibromyalgia; Z74.09 Other reduced mobility; Z98.1 Arthrodesis status
CPT/HCPCS: 80048; 80053; 81001; 82962; 85025; 87070; 87081; 87086; 97110; 97112; 97116; 97163; 97166; 97530; 97535; J1170; J1815; L0174

== ENCOUNTER 2019-01-27 14:48 | Inpatient (IN) | payer OTHER ==
[~2019-01-27] VITALS: Ht 158.8 cm; Wt 132.9 kg
[2019-01-27] MEDS ORDERED: CEFAZOLIN 2 GM/50 ML (PMX) 50 ML IVPB SCH (17:30)
[2019-01-27] MEDS ORDERED: ACETAMINOPHEN 325 MG TAB PO PRN (20:00)
[2019-01-27] MEDS ORDERED: ONDANSETRON 4 MG INJ IV PRN (20:00)
[2019-01-27] MEDS ORDERED: metFORMIN 500 MG TAB PO SCH (21:00)
[2019-01-27] MEDS ORDERED: ALBUTEROL HFA 8 GM INHALER INH PRN (21:00)
[2019-01-27] MEDS ORDERED: METOPROLOL 100 MG TAB PO SCH (21:00)
[2019-01-27] MEDS ORDERED: GABAPENTIN 400 MG CAP PO SCH (21:00)
[2019-01-27] MEDS: INSULIN ASPART [NOVOLOG] 3 ML PEN SC SCH (21:00)
[2019-01-27] MEDS ORDERED: HYOSCYAMINE 0.125 MG SUBL TAB SL PRN (21:00)
[2019-01-27] MEDS ORDERED: NALOXONE (0.4 MG/ML) INJ IV PRN (21:30)
[2019-01-27] MEDS ORDERED: ACETAMINOPHEN 500 MG TAB PO PRN (21:30)
[2019-01-27] MEDS ORDERED: GLUCOSE GEL 15 GRAM TUBE BUCCAL PRN (22:00)
[2019-01-27] MEDS ORDERED: DEXTROSE 50% 50 ML SYRINGE IV PRN ×2 (22:00)
[2019-01-27] MEDS ORDERED: GLUCOSE GEL 15 GRAM TUBE PO PRN ×2 (22:00)
[2019-01-27] MEDS ORDERED: GLUCAGON 1 MG INJ IM PRN (22:00)
[2019-01-27] MEDS: SUCRALFATE 1 GM TAB PO SCH (22:02)
[2019-01-27] MEDS: GABAPENTIN 100 MG CAP PO SCH (22:02)
[2019-01-27] MEDS: metFORMIN 850 MG TAB PO SCH (22:03)
[2019-01-27] MEDS: CEFAZOLIN 2 GM/50 ML (PMX) 50 ML IVPB SCH (22:05)
[2019-01-27] MEDS: HYDROCODONE/APAP (5/325) TAB PO PRN (22:46)
[2019-01-27] MEDS: METOPROLOL 25 MG TAB PO SCH (22:47)
[2019-01-27] MEDS: POTASSIUM CHLORIDE 10 MEQ in SOD CHLORIDE 0.45% 1,000 ML IV SCH (22:47)
[2019-01-27] MEDS: CHOLECALCIFEROL 1,000 UNIT TAB PO SCH (22:47)
[2019-01-28] MEDS: ONDANSETRON 4 MG TAB PO PRN (00:26)
[2019-01-28 01:11] VITALS: BP 109/60; PULSE 60; RESP 20; Ht 158.8 cm; Wt 132.9 kg
[2019-01-28] MEDS: OXYCODONE/ACETAMINOPHEN (10/325) TAB PO PRN ×4 (02:32→20:05)
[2019-01-28] MEDS: HYDROCODONE/APAP (5/325) TAB PO PRN (05:32)
[2019-01-28] MEDS: CEFAZOLIN 2 GM/50 ML (PMX) 50 ML IVPB SCH ×2 (05:33→13:31)
[2019-01-28] MEDS: INSULIN ASPART [NOVOLOG] 3 ML PEN SC SCH ×4 (07:35→20:10)
[2019-01-28 07:46] VITALS: BP 99/59; PULSE 63; RESP 18
[2019-01-28] MEDS: CHOLECALCIFEROL 1,000 UNIT TAB PO SCH (08:11)
[2019-01-28] MEDS: SUCRALFATE 1 GM TAB PO SCH ×4 (08:12→20:10)
[2019-01-28] MEDS: GABAPENTIN 100 MG CAP PO SCH ×3 (08:12→20:10)
[2019-01-28] MEDS: ASPIRIN (EC) 81 MG TAB PO SCH (08:12)
[2019-01-28] MEDS: metFORMIN 850 MG TAB PO SCH ×2 (08:13→17:05)
[2019-01-28] MEDS: TOPIRAMATE 25 MG TAB PO SCH (08:13)
[2019-01-28] MEDS: FLUTICASONE 0.05% 16 GM NAS SPRAY NASAL SCH (08:14)
[2019-01-28] MEDS: METOPROLOL 25 MG TAB PO SCH ×2 (08:14→21:51)
[2019-01-28 14:00] VITALS: BP 104/53; PULSE 71; RESP 18
[2019-01-28] MEDS: PIPER-TAZO 3.375 GM IV (PMX) 100 ML IVPB SCH ×2 (14:05→21:49)
[2019-01-28] MEDS: POTASSIUM CHLORIDE 10 MEQ in SOD CHLORIDE 0.45% 1,000 ML IV SCH ×2 (17:36→21:53)
[2019-01-28 20:02] VITALS: BP 100/57; PULSE 68; RESP 20
[2019-01-28 21:50] VITALS: BP 121/70; PULSE 68
[2019-01-28] MEDS: HYDROmorphONE 1 MG/ML SYG IV PRN (23:19)
[2019-01-29 02:21] VITALS: BP 100/58; PULSE 62; RESP 20
[2019-01-29] MEDS: HYDROmorphONE 1 MG/ML SYG IV PRN ×5 (03:35→21:40)
[2019-01-29] MEDS: PIPER-TAZO 3.375 GM IV (PMX) 100 ML IVPB SCH ×3 (05:43→21:00)
[2019-01-29] MEDS: INSULIN ASPART [NOVOLOG] 3 ML PEN SC SCH ×4 (07:35→20:56)
[2019-01-29 07:43] VITALS: BP 106/53; PULSE 77; RESP 16
[2019-01-29] MEDS: ASPIRIN (EC) 81 MG TAB PO SCH (07:55)
[2019-01-29] MEDS: SUCRALFATE 1 GM TAB PO SCH ×4 (07:56→20:56)
[2019-01-29] MEDS: metFORMIN 850 MG TAB PO SCH ×2 (07:56→17:25)
[2019-01-29] MEDS: CHOLECALCIFEROL 1,000 UNIT TAB PO SCH (07:57)
[2019-01-29] MEDS: GABAPENTIN 100 MG CAP PO SCH ×3 (07:57→20:56)
[2019-01-29] MEDS: FLUTICASONE 0.05% 16 GM NAS SPRAY NASAL SCH (07:59)
[2019-01-29] MEDS: METOPROLOL 25 MG TAB PO SCH ×2 (07:59→20:57)
[2019-01-29] MEDS: TOPIRAMATE 25 MG TAB PO SCH (08:01)
[2019-01-29] MEDS: POTASSIUM CHLORIDE 10 MEQ in SOD CHLORIDE 0.45% 1,000 ML IV SCH ×2 (13:24→21:38)
[2019-01-29 13:54] VITALS: BP 115/56; PULSE 67; RESP 15
[2019-01-29] MEDS: OXYCODONE/ACETAMINOPHEN (10/325) TAB PO PRN (14:09)
[2019-01-29] MEDS ORDERED: VANCOMYCIN IV PER PHARMACY XX SCH (19:30)
[2019-01-29] MEDS ORDERED: VANCOMYCIN HCL 2 GM in SOD CHLORIDE 0.9% 500 ML IVPB ONE (20:00)
[2019-01-29] MEDS ORDERED: CASPOFUNGIN 70 MG in SOD CHLORIDE 0.9% 250 ML IVPB ONE (20:30)
[2019-01-29 20:51] VITALS: BP 119/64; PULSE 69; RESP 16
[2019-01-30 01:45] VITALS: BP 105/54; PULSE 63; RESP 16
[2019-01-30] MEDS: HYDROmorphONE 1 MG/ML SYG IV PRN ×6 (02:35→22:54)
[2019-01-30] MEDS: PIPER-TAZO 3.375 GM IV (PMX) 100 ML IVPB SCH ×3 (05:00→22:49)
[2019-01-30] MEDS: INSULIN ASPART [NOVOLOG] 3 ML PEN SC SCH ×4 (07:35→20:57)
[2019-01-30 07:58] VITALS: BP 114/58; PULSE 63; RESP 19
[2019-01-30] MEDS: FLUTICASONE 0.05% 16 GM NAS SPRAY NASAL SCH (08:27)
[2019-01-30] MEDS: GABAPENTIN 100 MG CAP PO SCH ×3 (08:27→20:56)
[2019-01-30] MEDS: metFORMIN 850 MG TAB PO SCH ×2 (08:27→17:03)
[2019-01-30] MEDS: SUCRALFATE 1 GM TAB PO SCH ×4 (08:27→20:56)
[2019-01-30] MEDS: ASPIRIN (EC) 81 MG TAB PO SCH (08:27)
[2019-01-30] MEDS: TOPIRAMATE 25 MG TAB PO SCH (08:27)
[2019-01-30] MEDS: METOPROLOL 25 MG TAB PO SCH ×2 (08:28→20:57)
[2019-01-30] MEDS: VANCOMYCIN 1.25 GM/NS 250 ML 250 ML IVPB SCH ×2 (08:30→20:56)
[2019-01-30] MEDS: CHOLECALCIFEROL 1,000 UNIT TAB PO SCH (09:00)
[2019-01-30 14:08] VITALS: BP 91/51; PULSE 62; RESP 19
[2019-01-30] MEDS ORDERED: CASPOFUNGIN 50 MG in SOD CHLORIDE 0.9% 250 ML IVPB SCH (19:30)
[2019-01-30 20:06] VITALS: BP 111/56; PULSE 63; RESP 18
[2019-01-31 01:50] VITALS: BP 105/54; PULSE 62; RESP 18
[2019-01-31] MEDS: HYDROmorphONE 1 MG/ML SYG IV PRN ×6 (02:44→23:23)
[2019-01-31] MEDS: PIPER-TAZO 3.375 GM IV (PMX) 100 ML IVPB SCH ×2 (05:34→14:29)
[2019-01-31 07:26] VITALS: BP 120/59; PULSE 65; RESP 15
[2019-01-31] MEDS: INSULIN ASPART [NOVOLOG] 3 ML PEN SC SCH ×4 (07:35→21:00)
[2019-01-31] MEDS: SUCRALFATE 1 GM TAB PO SCH ×4 (08:31→20:11)
[2019-01-31] MEDS: GABAPENTIN 100 MG CAP PO SCH ×3 (08:32→20:11)
[2019-01-31] MEDS: CHOLECALCIFEROL 1,000 UNIT TAB PO SCH (08:32)
[2019-01-31] MEDS: metFORMIN 850 MG TAB PO SCH ×2 (08:32→17:16)
[2019-01-31] MEDS: ASPIRIN (EC) 81 MG TAB PO SCH (08:32)
[2019-01-31] MEDS: TOPIRAMATE 25 MG TAB PO SCH (08:32)
[2019-01-31] MEDS: FLUTICASONE 0.05% 16 GM NAS SPRAY NASAL SCH (08:33)
[2019-01-31] MEDS: METOPROLOL 25 MG TAB PO SCH ×2 (08:33→20:11)
[2019-01-31] MEDS: VANCOMYCIN 1.25 GM/NS 250 ML 250 ML IVPB SCH (08:55)
[2019-01-31 13:43] VITALS: BP 113/51; PULSE 63; RESP 16
[2019-01-31] MEDS: CIPROFLOXACIN 500 MG TAB PO SCH (17:17)
[2019-01-31 19:49] VITALS: BP 118/58; PULSE 65; RESP 18
[2019-02-01 01:33] VITALS: BP 146/71; PULSE 66; RESP 18
[2019-02-01] MEDS: CIPROFLOXACIN 500 MG TAB PO SCH (05:51)
[2019-02-01] MEDS: HYDROmorphONE 1 MG/ML SYG IV PRN ×6 (05:54→21:22)
[2019-02-01] MEDS: INSULIN ASPART [NOVOLOG] 3 ML PEN SC SCH ×4 (07:35→20:17)
[2019-02-01] MEDS: OXYCODONE/ACETAMINOPHEN (10/325) TAB PO PRN ×2 (07:45→13:55)
[2019-02-01 07:52] VITALS: BP 115/58; PULSE 63; RESP 16
[2019-02-01 08:32] VITALS: BP 110/58; PULSE 60; RESP 16
[2019-02-01] MEDS: GABAPENTIN 100 MG CAP PO SCH ×3 (08:33→20:13)
[2019-02-01] MEDS: FLUCONAZOLE 200 MG TAB PO SCH (08:33)
[2019-02-01] MEDS: SUCRALFATE 1 GM TAB PO SCH ×4 (08:33→20:13)
[2019-02-01] MEDS: FLUTICASONE 0.05% 16 GM NAS SPRAY NASAL SCH (08:33)
[2019-02-01] MEDS: CHOLECALCIFEROL 1,000 UNIT TAB PO SCH (08:33)
[2019-02-01] MEDS: METOPROLOL 25 MG TAB PO SCH ×2 (08:34→20:13)
[2019-02-01] MEDS: metFORMIN 850 MG TAB PO SCH ×2 (08:34→17:08)
[2019-02-01] MEDS: TOPIRAMATE 25 MG TAB PO SCH (08:34)
[2019-02-01] MEDS: ASPIRIN (EC) 81 MG TAB PO SCH (08:34)
[2019-02-01 13:45] VITALS: BP 110/66; PULSE 67; RESP 16
[2019-02-01] MEDS: CIPROFLOXACIN 400MG/D5W 200 ML IVPB SCH (17:07)
[2019-02-01] MEDS: ONDANSETRON 4 MG TAB PO PRN (17:56)
[2019-02-01 20:00] VITALS: BP 113/55; PULSE 64; RESP 17
[2019-02-02] MEDS: HYDROmorphONE 1 MG/ML SYG IV PRN ×7 (00:46→22:57)
[2019-02-02 02:10] VITALS: BP 118/71; PULSE 75; RESP 18
[2019-02-02] MEDS: CIPROFLOXACIN 400MG/D5W 200 ML IVPB SCH ×2 (05:44→17:03)
[2019-02-02 07:26] VITALS: BP 121/55; PULSE 65; RESP 16
[2019-02-02] MEDS: INSULIN ASPART [NOVOLOG] 3 ML PEN SC SCH ×4 (07:35→21:00)
[2019-02-02] MEDS: FLUCONAZOLE 200 MG TAB PO SCH (08:14)
[2019-02-02] MEDS: GABAPENTIN 100 MG CAP PO SCH ×3 (08:14→20:28)
[2019-02-02] MEDS: SUCRALFATE 1 GM TAB PO SCH ×4 (08:14→20:28)
[2019-02-02] MEDS: TOPIRAMATE 25 MG TAB PO SCH (08:14)
[2019-02-02] MEDS: ASPIRIN (EC) 81 MG TAB PO SCH (08:14)
[2019-02-02] MEDS: CHOLECALCIFEROL 1,000 UNIT TAB PO SCH (08:14)
[2019-02-02] MEDS: METOPROLOL 25 MG TAB PO SCH ×2 (08:15→20:28)
[2019-02-02] MEDS: metFORMIN 850 MG TAB PO SCH ×2 (08:15→17:00)
[2019-02-02] MEDS: FLUTICASONE 0.05% 16 GM NAS SPRAY NASAL SCH (08:16)
[2019-02-02] MEDS: ONDANSETRON 4 MG TAB PO PRN ×2 (10:20→19:52)
[2019-02-02 14:42] VITALS: BP 133/68; PULSE 66; RESP 18
[2019-02-02 20:00] VITALS: BP 105/59; PULSE 68; RESP 19
[2019-02-03 02:00] VITALS: BP 107/57; PULSE 60; RESP 20
[2019-02-03] MEDS: CIPROFLOXACIN 400MG/D5W 200 ML IVPB SCH ×2 (05:15→17:17)
[2019-02-03] MEDS: INSULIN ASPART [NOVOLOG] 3 ML PEN SC SCH ×4 (07:35→21:00)
[2019-02-03 08:00] VITALS: BP 119/58; PULSE 65; RESP 18
[2019-02-03] MEDS: ASPIRIN (EC) 81 MG TAB PO SCH (08:23)
[2019-02-03] MEDS: metFORMIN 850 MG TAB PO SCH ×2 (08:25→17:17)
[2019-02-03] MEDS: FLUCONAZOLE 200 MG TAB PO SCH (08:25)
[2019-02-03] MEDS: CHOLECALCIFEROL 1,000 UNIT TAB PO SCH (08:25)
[2019-02-03] MEDS: TOPIRAMATE 25 MG TAB PO SCH (08:25)
[2019-02-03] MEDS: GABAPENTIN 100 MG CAP PO SCH ×3 (08:25→20:07)
[2019-02-03] MEDS: SUCRALFATE 1 GM TAB PO SCH ×4 (08:25→20:07)
[2019-02-03] MEDS: METOPROLOL 25 MG TAB PO SCH ×2 (08:26→20:08)
[2019-02-03] MEDS: FLUTICASONE 0.05% 16 GM NAS SPRAY NASAL SCH (08:28)
[2019-02-03] MEDS: ONDANSETRON 4 MG TAB PO PRN ×2 (14:05→20:07)
[2019-02-03 14:29] VITALS: BP 111/59; PULSE 63; RESP 18
[2019-02-03] MEDS: HYDROmorphONE 1 MG/ML SYG IV PRN ×3 (15:35→22:05)
[2019-02-03 19:38] VITALS: BP 110/56; PULSE 67; RESP 18
[2019-02-04] MEDS: HYDROmorphONE 1 MG/ML SYG IV PRN ×6 (01:37→21:57)
[2019-02-04 02:36] VITALS: BP 108/59; PULSE 63; RESP 18
[2019-02-04] MEDS: CIPROFLOXACIN 400MG/D5W 200 ML IVPB SCH (05:31)
[2019-02-04] MEDS: ONDANSETRON 4 MG TAB PO PRN (07:16)
[2019-02-04 07:18] VITALS: BP 125/74; PULSE 58; RESP 18
[2019-02-04] MEDS: INSULIN ASPART [NOVOLOG] 3 ML PEN SC SCH ×4 (07:35→20:53)
[2019-02-04] MEDS: ASPIRIN (EC) 81 MG TAB PO SCH (08:07)
[2019-02-04] MEDS: FLUTICASONE 0.05% 16 GM NAS SPRAY NASAL SCH (08:07)
[2019-02-04] MEDS: GABAPENTIN 100 MG CAP PO SCH ×3 (08:08→20:53)
[2019-02-04] MEDS: TOPIRAMATE 25 MG TAB PO SCH (08:08)
[2019-02-04] MEDS: SUCRALFATE 1 GM TAB PO SCH ×4 (08:08→20:53)
[2019-02-04] MEDS: CHOLECALCIFEROL 1,000 UNIT TAB PO SCH (08:08)
[2019-02-04] MEDS: metFORMIN 850 MG TAB PO SCH ×2 (08:08→17:24)
[2019-02-04] MEDS: FLUCONAZOLE 200 MG TAB PO SCH (08:09)
[2019-02-04] MEDS: METOPROLOL 25 MG TAB PO SCH ×2 (08:09→20:54)
[2019-02-04] MEDS ORDERED: POTASSIUM CHLORIDE (SR) 20 MEQ TAB PO STA (12:57)
[2019-02-04 13:42] VITALS: BP 111/65; PULSE 64; RESP 18
[2019-02-04] MEDS: CIPROFLOXACIN 500 MG TAB PO SCH (17:24)
[2019-02-04 20:48] VITALS: BP 113/60; PULSE 65; RESP 18
[2019-02-04] MEDS: OXYCODONE/ACETAMINOPHEN (10/325) TAB PO PRN (20:54)
[2019-02-05 02:28] VITALS: BP 100/58; PULSE 60; RESP 18
[2019-02-05] MEDS: HYDROmorphONE 1 MG/ML SYG IV PRN ×3 (04:43→19:58)
[2019-02-05] MEDS: CIPROFLOXACIN 500 MG TAB PO SCH (05:34)
[2019-02-05 07:33] VITALS: BP 94/57; PULSE 60; RESP 18
[2019-02-05] MEDS: INSULIN ASPART [NOVOLOG] 3 ML PEN SC SCH ×4 (07:35→20:01)
[2019-02-05] MEDS: FLUTICASONE 0.05% 16 GM NAS SPRAY NASAL SCH (08:36)
[2019-02-05] MEDS: FLUCONAZOLE 200 MG TAB PO SCH (08:36)
[2019-02-05] MEDS: metFORMIN 850 MG TAB PO SCH (08:37)
[2019-02-05] MEDS: TOPIRAMATE 25 MG TAB PO SCH (08:37)
[2019-02-05] MEDS: ASPIRIN (EC) 81 MG TAB PO SCH (08:37)
[2019-02-05] MEDS: METOPROLOL 25 MG TAB PO SCH ×2 (08:38→20:00)
[2019-02-05] MEDS: SUCRALFATE 1 GM TAB PO SCH ×4 (08:38→20:00)
[2019-02-05] MEDS: GABAPENTIN 100 MG CAP PO SCH ×3 (08:38→20:00)
[2019-02-05] MEDS: CHOLECALCIFEROL 1,000 UNIT TAB PO SCH (08:39)
[2019-02-05] MEDS: SOD CHLORIDE 0.45% 1,000 ML IV SCH (12:09)
[2019-02-05 14:21] VITALS: BP 132/58; PULSE 65; RESP 18
[2019-02-05] MEDS: CIPROFLOXACIN 250 MG TAB PO SCH (17:15)
[2019-02-05] MEDS: OXYCODONE/ACETAMINOPHEN (10/325) TAB PO PRN (18:39)
[2019-02-05 20:00] VITALS: BP 108/71; PULSE 67; RESP 18
[2019-02-05] MEDS: ONDANSETRON 4 MG TAB PO PRN (20:10)
[2019-02-06] MEDS: SOD CHLORIDE 0.45% 1,000 ML IV SCH ×2 (01:38→14:55)
[2019-02-06 02:00] VITALS: BP 120/57; PULSE 67; RESP 18
[2019-02-06] MEDS: CIPROFLOXACIN 250 MG TAB PO SCH ×2 (05:10→17:02)
[2019-02-06] MEDS: INSULIN ASPART [NOVOLOG] 3 ML PEN SC SCH ×4 (07:35→20:54)
[2019-02-06 07:37] VITALS: BP 111/68; PULSE 75; RESP 18
[2019-02-06] MEDS: GABAPENTIN 100 MG CAP PO SCH ×3 (08:29→20:54)
[2019-02-06] MEDS: CHOLECALCIFEROL 1,000 UNIT TAB PO SCH (08:29)
[2019-02-06] MEDS: SUCRALFATE 1 GM TAB PO SCH ×4 (08:29→20:53)
[2019-02-06] MEDS: ASPIRIN (EC) 81 MG TAB PO SCH (08:29)
[2019-02-06] MEDS: FLUCONAZOLE 200 MG TAB PO SCH (08:29)
[2019-02-06] MEDS: TOPIRAMATE 25 MG TAB PO SCH (08:29)
[2019-02-06] MEDS: METOPROLOL 25 MG TAB PO SCH ×2 (08:30→20:54)
[2019-02-06] MEDS: FLUTICASONE 0.05% 16 GM NAS SPRAY NASAL SCH (08:30)
[2019-02-06 14:00] VITALS: BP 104/52; PULSE 65; RESP 18
[2019-02-06] MEDS: OXYCODONE/ACETAMINOPHEN (10/325) TAB PO PRN ×2 (14:55→20:53)
[2019-02-06 20:00] VITALS: BP 144/65; PULSE 64; RESP 18
[2019-02-07 02:00] VITALS: BP 108/50; PULSE 58; RESP 18
[2019-02-07] MEDS: OXYCODONE/ACETAMINOPHEN (10/325) TAB PO PRN (03:43)
[2019-02-07] MEDS: SOD CHLORIDE 0.45% 1,000 ML IV SCH ×3 (04:30→20:19)
[2019-02-07] MEDS: CIPROFLOXACIN 250 MG TAB PO SCH ×2 (06:24→17:06)
[2019-02-07] MEDS: SUCRALFATE 1 GM TAB PO SCH ×4 (06:24→20:15)
[2019-02-07] MEDS: INSULIN ASPART [NOVOLOG] 3 ML PEN SC SCH ×4 (07:35→20:18)
[2019-02-07 07:39] VITALS: BP 116/66; PULSE 59; RESP 18
[2019-02-07] MEDS: METOPROLOL 25 MG TAB PO SCH ×2 (07:54→20:15)
[2019-02-07] MEDS: ALLOPURINOL 100 MG TAB PO SCH ×2 (08:30→20:15)
[2019-02-07] MEDS: ASPIRIN (EC) 81 MG TAB PO SCH (08:30)
[2019-02-07] MEDS: FLUTICASONE 0.05% 16 GM NAS SPRAY NASAL SCH (08:30)
[2019-02-07] MEDS: GABAPENTIN 100 MG CAP PO SCH ×3 (08:30→20:15)
[2019-02-07] MEDS: FLUCONAZOLE 200 MG TAB PO SCH (08:30)
[2019-02-07] MEDS: TOPIRAMATE 25 MG TAB PO SCH (08:30)
[2019-02-07] MEDS: CHOLECALCIFEROL 1,000 UNIT TAB PO SCH (08:31)
[2019-02-07 14:00] VITALS: BP 128/67; PULSE 66; RESP 17
[2019-02-07 19:49] VITALS: BP 132/62; PULSE 69; RESP 16
[2019-02-08 01:23] VITALS: BP 124/58; PULSE 66; RESP 17
[2019-02-08] MEDS: SOD CHLORIDE 0.45% 1,000 ML IV SCH ×3 (02:05→17:21)
[2019-02-08] MEDS: CIPROFLOXACIN 250 MG TAB PO SCH ×2 (06:09→17:20)
[2019-02-08] MEDS: SUCRALFATE 1 GM TAB PO SCH ×4 (06:09→20:33)
[2019-02-08 07:22] VITALS: BP 126/65; PULSE 61; RESP 18
[2019-02-08] MEDS: INSULIN ASPART [NOVOLOG] 3 ML PEN SC SCH ×4 (07:35→20:32)
[2019-02-08] MEDS: FLUTICASONE 0.05% 16 GM NAS SPRAY NASAL SCH (08:16)
[2019-02-08] MEDS: FLUCONAZOLE 200 MG TAB PO SCH (08:16)
[2019-02-08] MEDS: ALLOPURINOL 100 MG TAB PO SCH ×2 (08:17→20:32)
[2019-02-08] MEDS: ASPIRIN (EC) 81 MG TAB PO SCH (08:17)
[2019-02-08] MEDS: CHOLECALCIFEROL 1,000 UNIT TAB PO SCH (08:17)
[2019-02-08] MEDS: GABAPENTIN 100 MG CAP PO SCH ×3 (08:17→20:34)
[2019-02-08] MEDS: TOPIRAMATE 25 MG TAB PO SCH (08:17)
[2019-02-08] MEDS: METOPROLOL 25 MG TAB PO SCH ×2 (08:25→20:33)
[2019-02-08 13:47] VITALS: BP 116/58; PULSE 66; RESP 18
[2019-02-08 19:43] VITALS: BP 112/78; PULSE 68; RESP 17
[2019-02-08] MEDS: ONDANSETRON 4 MG TAB PO PRN (20:37)
[2019-02-08] MEDS: OXYCODONE/ACETAMINOPHEN (10/325) TAB PO PRN (22:10)
[2019-02-09 01:51] VITALS: BP 111/60; PULSE 55; RESP 19
[2019-02-09] MEDS: SOD CHLORIDE 0.45% 1,000 ML IV SCH ×2 (05:08→06:39)
[2019-02-09] MEDS: CIPROFLOXACIN 250 MG TAB PO SCH ×2 (05:09→17:09)
[2019-02-09] MEDS: INSULIN ASPART [NOVOLOG] 3 ML PEN SC SCH ×4 (07:35→20:36)
[2019-02-09 08:00] VITALS: BP 116/59; PULSE 58; RESP 18
[2019-02-09] MEDS: SUCRALFATE 1 GM TAB PO SCH ×4 (08:07→20:34)
[2019-02-09] MEDS: FLUTICASONE 0.05% 16 GM NAS SPRAY NASAL SCH (09:00)
[2019-02-09] MEDS: METOPROLOL 25 MG TAB PO SCH ×2 (09:00→20:36)
[2019-02-09] MEDS: CHOLECALCIFEROL 1,000 UNIT TAB PO SCH (09:03)
[2019-02-09] MEDS: ASPIRIN (EC) 81 MG TAB PO SCH (09:03)
[2019-02-09] MEDS: TOPIRAMATE 25 MG TAB PO SCH (09:04)
[2019-02-09] MEDS: ALLOPURINOL 100 MG TAB PO SCH ×2 (09:04→20:34)
[2019-02-09] MEDS: GABAPENTIN 100 MG CAP PO SCH ×3 (09:04→20:36)
[2019-02-09] MEDS: FLUCONAZOLE 200 MG TAB PO SCH (09:04)
[2019-02-09] MEDS: ONDANSETRON 4 MG TAB PO PRN ×2 (09:11→22:12)
[2019-02-09 14:00] VITALS: BP 157/85; PULSE 63; RESP 16
[2019-02-09 20:00] VITALS: BP 123/67; PULSE 59; RESP 17
[2019-02-09] MEDS: OXYCODONE/ACETAMINOPHEN (10/325) TAB PO PRN (20:36)
[2019-02-10] MEDS: SOD CHLORIDE 0.45% 1,000 ML IV SCH ×2 (00:10→15:49)
[2019-02-10 01:32] VITALS: BP 114/63; PULSE 68; RESP 18
[2019-02-10] MEDS: CIPROFLOXACIN 250 MG TAB PO SCH ×2 (06:04→17:04)
[2019-02-10] MEDS: SUCRALFATE 1 GM TAB PO SCH ×4 (06:05→20:00)
[2019-02-10] MEDS: INSULIN ASPART [NOVOLOG] 3 ML PEN SC SCH ×4 (07:35→21:00)
[2019-02-10 07:43] VITALS: BP 126/67; PULSE 59; RESP 18
[2019-02-10] MEDS: FLUTICASONE 0.05% 16 GM NAS SPRAY NASAL SCH (08:30)
[2019-02-10] MEDS: ASPIRIN (EC) 81 MG TAB PO SCH (08:54)
[2019-02-10] MEDS: GABAPENTIN 100 MG CAP PO SCH ×3 (08:54→20:00)
[2019-02-10] MEDS: CHOLECALCIFEROL 1,000 UNIT TAB PO SCH (08:54)
[2019-02-10] MEDS: METOPROLOL 25 MG TAB PO SCH ×2 (08:55→20:00)
[2019-02-10] MEDS: TOPIRAMATE 25 MG TAB PO SCH (08:55)
[2019-02-10] MEDS: FLUCONAZOLE 200 MG TAB PO SCH (08:55)
[2019-02-10] MEDS: ALLOPURINOL 100 MG TAB PO SCH ×2 (08:55→20:00)
[2019-02-10 13:50] VITALS: BP 118/56; PULSE 61; RESP 18
[2019-02-10 19:38] VITALS: BP 135/63; PULSE 60; RESP 18
[2019-02-10] MEDS: ONDANSETRON 4 MG TAB PO PRN (20:00)
[2019-02-10] MEDS: OXYCODONE/ACETAMINOPHEN (10/325) TAB PO PRN (20:01)
[2019-02-11 01:42] VITALS: BP 117/57; PULSE 56; RESP 18
[2019-02-11] MEDS: SOD CHLORIDE 0.45% 1,000 ML IV SCH (05:00)
[2019-02-11] MEDS: CIPROFLOXACIN 250 MG TAB PO SCH ×2 (05:00→17:10)
[2019-02-11] MEDS: INSULIN ASPART [NOVOLOG] 3 ML PEN SC SCH ×3 (07:35→17:10)
[2019-02-11 07:59] VITALS: BP 110/55; PULSE 60; RESP 15
[2019-02-11] MEDS: ASPIRIN (EC) 81 MG TAB PO SCH (08:13)
[2019-02-11] MEDS: ALLOPURINOL 100 MG TAB PO SCH (08:13)
[2019-02-11] MEDS: TOPIRAMATE 25 MG TAB PO SCH (08:13)
[2019-02-11] MEDS: FLUCONAZOLE 200 MG TAB PO SCH (08:13)
[2019-02-11] MEDS: GABAPENTIN 100 MG CAP PO SCH ×2 (08:14→12:40)
[2019-02-11] MEDS: CHOLECALCIFEROL 1,000 UNIT TAB PO SCH (08:14)
[2019-02-11] MEDS: SUCRALFATE 1 GM TAB PO SCH ×3 (08:14→17:10)
[2019-02-11] MEDS: METOPROLOL 25 MG TAB PO SCH (08:14)
[2019-02-11] MEDS: FLUTICASONE 0.05% 16 GM NAS SPRAY NASAL SCH (08:15)
[2019-02-11 15:40] VITALS: BP 127/69; PULSE 61; RESP 16
[2019-02-11] MEDS ORDERED: DOXYCYCLINE 100 MG TAB PO SCH (21:00)
== END 2019-02-11 18:58 | disposition home health service (06) | DRG 863 ==
LOC: E/R 14:48 → MS3 19:44
PROVIDERS: ADMIT Internal Medicine; ATTEND Internal Medicine
DX: T81.41XA Infection following a procedure, superficial incisional surgical site, initial encounter (principal); T81.31XA Disruption of external operation (surgical) wound, not elsewhere classified, initial encounter; Z68.43 Body mass index [BMI] 50.0-59.9, adult; B37.89 Other sites of candidiasis; N17.9 Acute kidney failure, unspecified; N13.30 Unspecified hydronephrosis; E11.8 Type 2 diabetes mellitus with unspecified complications; K58.9 Irritable bowel syndrome, unspecified; E66.01 Morbid (severe) obesity due to excess calories; Z98.1 Arthrodesis status; B96.4 Proteus (mirabilis) (morganii) as the cause of diseases classified elsewhere; B95.7 Other staphylococcus as the cause of diseases classified elsewhere
CPT/HCPCS: 76775; 80048; 80053; 80202; 82550; 82962; 83036; 84560; 85025; 87070; 87081; 96365; J0690; J0744; J1170; J1815; J2543; J3370; J3480; J7040; J7050